=== PATIENT | female | born 1955 | race Caucasian/White ===

== ENCOUNTER → 2017-05-02 | Outpatient (CLI) | payer OTHER ==
[~2017-05-02] MED LIST: ALBUTEROL NEB; ASCO10003 PO; BUPR-83 PO; CHOL2000 PO; CYAN500T PO; DAILY FIBER PO; GLC/500 PO; LOSA25TA18 PO; MAGN400T6 PO; METH-589 PO; METH10TA6 PO; MOME200A INH; MULT-1016 PO; PARO1TAB29 PO; POTASSIUM PO; PRLSR20 PO; PROB1TAB19 PO; PRT/20 PO; RIBO50TA5 PO; TRAZ100T29 PO; VNTHFA/IN INH; ZNTT/150 PO
[2017-05-02 16:42] LABS: BASO % 0.3 %; BASO ABS # 0.02 K/uL (0-0.2); COMPLETE YES; HEMATOCRIT 38.1 % (37-47); IG% 0.2 %; LYMPH % 26.4 %; MEAN CELL VOLUME 93.2 fL (80-100); MEAN CORPUSCULAR HEMOGLOBIN 28.9 pg (25-34); MEAN PLATELET VOLUME 9.9 fL (7.4-10.4); MONO % 6.6 %; NEUT % 63.5 %; PLATELET COUNT 232 K/uL (130-400); RED BLOOD COUNT 4.09 M/uL (4.2-5.4); WHITE BLOOD COUNT 6.07 K/uL (4.8-10.8)
[2017-05-02 16:55] LABS: AMYLASE 41 U/L (25-115); BLOOD UREA NITROGEN 16 mg/dl (7-18); BUN/CREATININE RATIO 19.8 (10-20); CARBON DIOXIDE 30 mmol/L (21-32); CHLORIDE 107 mmol/L (98-107); CHOLESTEROL 167 mg/dl (0-200); GLUCOSE 89 mg/dl (70-99); POTASSIUM 4.7 mmol/L (3.5-5.1); SODIUM 142 mmol/L (136-145); TRIGLYCERIDES 60 mg/dl (0-150); VERY LOW DENSITY LIPOPROT CALC 12 mg/dl
[2017-05-02 17:08] LABS: ALB/GLOB RATIO 1.1 (0.9-2); ALKALINE PHOSPHATASE 132 U/L (45-117); ALT/SGPT 44 U/L (12-78); AST/SGOT 30 U/L (15-37); CHOLESTEROL/HDL RATIO 2.1; HDL CHOLESTEROL 80 mg/dl; LDL CHOLESTEROL CALCULATED 75 mg/dl
[2017-05-02 17:23] LABS: RATIO 5.3 mcg/mg (0-30.0)
[2017-05-02 18:06] LABS: CALCIUM 8.7 mg/dl (8.5-10.1)
[2017-05-03 06:30] LABS: ESTIMATED AVERAGE GLUCOSE 123 mg/dl; HA1C FLAG Normal (Normal)
== END | disposition home or self-care (01) ==
LOC: C.LABPBG 11:28 → EDBD 11:30 → C.LABPBG 11:30 → EDSTATUS 11:47 → C.LABPBG 11:48 → EDSTATUS 12:44
PROVIDERS: ATTEND Physician Assistant
DX: E50.9 Vitamin A deficiency, unspecified (principal); E51.8 Other manifestations of thiamine deficiency; E11.9 Type 2 diabetes mellitus without complications; R11.2 Nausea with vomiting, unspecified; Z00.00 Encounter for general adult medical examination without abnormal findings

== ENCOUNTER → 2017-06-06 | Outpatient (CLI) | payer OTHER ==
[~2017-06-06] MED LIST changes: -ALBUTEROL NEB; -PRT/20 PO; -TRAZ100T29 PO
--- NOTE | 2017-06-06 13:33 | DIAGNOSTIC IMAGING REPORT ---
ABDOMEN LIMITED (US) HISTORY: 62 years-old Female acute right upper quadrant abdominal pain COMPARISON: Chest radiograph 11/12/2016 TECHNIQUE: Multiple real-time cinematic images of the abdominal right upper quadrant were obtained assessing grayscale appearance FINDINGS: Exam is limited secondary to patient body habitus. The imaged portions of the pancreas appear normal with the distal body and tail not well seen. Liver measures up to 17.3 cm and appears diffusely echogenic suggesting fatty infiltration. No focal hepatic mass lesions. The gallbladder appears normal without gallbladder wall thickening, pericholecystic fluid collections or shadowing cholelithiasis. Common bile duct appears normal, 0.5 cm. Right kidney is within normal limits without hydronephrosis. IMPRESSION: 1. Unremarkable sonographic appearance of the gallbladder without cholelithiasis or sonographic evidence of acute cholecystitis. 2. No biliary ductal dilatation. 3. Fatty infiltration of the liver. The above report was generated using voice recognition software. It may contain grammatical, syntax or spelling errors. Electronically signed by: Sav Hoskins M.D. 06/06/2017 1:31 PM Dictated Date/Time: 06/06/2017 1:29 PM
== END | disposition home or self-care (01) ==
LOC: C.ULTR 09:48
PROVIDERS: ATTEND Physician Assistant
DX: R10.11 Right upper quadrant pain (principal)

== ENCOUNTER → 2017-08-13 | Outpatient (CLI) | payer OTHER ==
[2017-08-13 13:51] LABS: MAGNESIUM 1.8 mg/dl (1.8-2.4); THYROID STIMULATING HORMONE 0.226 uIu/ml (0.300-4.500)
[2017-08-18 13:31] LABS: TSI 563 % baseline (<140)
== END | disposition home or self-care (01) ==
LOC: C.LABPBG 10:36
PROVIDERS: ATTEND Physician Assistant
DX: E05.90 Thyrotoxicosis, unspecified without thyrotoxic crisis or storm (principal); Z13.21 Encounter for screening for nutritional disorder; R42 Dizziness and giddiness; R53.83 Other fatigue; E11.9 Type 2 diabetes mellitus without complications

== ENCOUNTER → 2017-08-25 | Outpatient (CLI) | payer OTHER | END | disposition home or self-care (01) | LOC: C.LABPBG 10:56 | PROVIDERS: ATTEND Physician Assistant | DX: Z13.21 Encounter for screening for nutritional disorder (principal) ==

== ENCOUNTER → 2017-08-29 | Outpatient (CLI) | payer OTHER ==
--- NOTE | 2017-08-29 11:43 | DIAGNOSTIC IMAGING REPORT ---
CT NECK WITHOUT INTRAVENOUS CONTRAST HISTORY: E05.90 [id number] Nontoxic multinodular [id number] TECHNIQUE: Multiaxial CT images of the neck were performed without the use of intravenous contrast. COMPARISON STUDY: None. FINDINGS: The right thyroid lobe measures 8.6 x 3.3 x 2.2 cm. The left thyroid lobe measures 4.6 x 2.8 x 1.6 cm. The isthmus measures 7 mm in thickness. Evaluation for a thyroid nodule is suboptimal due to the lack of intravenous contrast. There are 2 coarse calcifications within the right thyroid lobe with the largest measuring 9 mm. No cervical lymphadenopathy. Mild calcified plaque within the bilateral carotid bulbs. The parotid and submandibular glands are symmetric. Minimal left deviation of the larynx due to the enlarged right thyroid lobe. The lung apices are clear. The visualized brain parenchyma and orbits are unremarkable. Small retention cyst within the right maxillary sinus. IMPRESSION: 1. Asymmetrically enlarged right thyroid lobe as described above. This contains 2 coarse calcifications suggestive of a multinodular gland. However, evaluation for nodules is difficult due to the lack of intravenous contrast. Follow-up thyroid ultrasound would be helpful for further evaluation. 2. No cervical lymphadenopathy. Electronically signed by: Sean Mitchell M.D. 08/29/2017 11:41 AM Dictated Date/Time: 08/29/2017 11:29 AM
== END | disposition home or self-care (01) ==
LOC: C.CTS 10:55
PROVIDERS: ATTEND Internal Medicine Endocrinology, Diabetes & Metabolism
DX: E05.90 Thyrotoxicosis, unspecified without thyrotoxic crisis or storm (principal); E04.2 Nontoxic multinodular goiter

== ENCOUNTER → 2017-09-01 | Outpatient (CLI) | payer OTHER ==
[2017-09-01 15:20] LABS: THYROID STIMULATING HORMONE 0.06 uIu/ml (0.300-4.500)
== END | disposition home or self-care (01) ==
LOC: C.LABPBG 08:12
PROVIDERS: ATTEND Internal Medicine Endocrinology, Diabetes & Metabolism
DX: E66.01 Morbid (severe) obesity due to excess calories (principal); E05.90 Thyrotoxicosis, unspecified without thyrotoxic crisis or storm

== ENCOUNTER 2017-10-01 08:03 | Inpatient (IN) | payer OTHER ==
[2017-09-22 10:21] VITALS: BMI 49.0
[2017-09-22 10:31] LABS: BUN/CREATININE RATIO 14.4 (10-20); CALCIUM 9.4 mg/dl (8.5-10.1); CREATININE 0.76 mg/dl (0.60-1.20); POTASSIUM 4.8 mmol/L (3.5-5.1)
[2017-09-22 10:41] LABS: THYROID STIMULATING HORMONE 0.225 uIu/ml (0.300-4.500)
--- NOTE | 2017-09-22 10:51 | PAT Medication Instructions ---
Service Date Sep 22, 2017. Current Home Medication List Albuterol Hfa (Ventolin Hfa), Unknown Dose INH PRN Ascorbic Acid (Vitamin C), 1 TAB PO BID Bupropion (Wellbutrin), 200 MG PO BID Cholecalciferol (Vitamin D3), 1 CAP PO QAM Losartan Potassium (Cozaar), 25 MG PO QAM Magnesium Oxide (Mag-Ox), 400 MG PO QAM Metformin Hcl (Glucophage), 500 MG PO BID Methimazole (Methimazole), 2 TAB PO BID Mometasone Furoate-Formoterol (Dulera 200/5 Mcg), 2 PUFFS INH BID Multiple Vitamins W/ Minerals (Multivitamin Women 50+), 1 TAB PO QAM Pantoprazole (Protonix), Unknown Dose PO BID Paroxetine (Paxil), 40 MG PO QAM Trazodone Hcl (Trazodone), 100 MG PO HS [Albuterol Neb ], Unknown Dose for ASTHMA Medication Instructions For Your Scheduled Surgery - Hold the following medications 48 hours prior to surgery: Metformin Hcl (Glucophage), 500 MG PO BID - Hold the following medications the morning of surgery: Ascorbic Acid (Vitamin C), 1 TAB PO BID Cholecalciferol (Vitamin D3), 1 CAP PO QAM Losartan Potassium (Cozaar), 25 MG PO QAM Magnesium Oxide (Mag-Ox), 400 MG PO QAM Multiple Vitamins W/ Minerals (Multivitamin Women 50+), 1 TAB PO QAM - Take the following medications the morning of surgery with a sip of water OTHERWISE NOTHING TO EAT OR DRINK AFTER MIDNIGHT: Paroxetine (Paxil), 40 MG PO QAM [Albuterol Neb ], Unknown Dose for ASTHMA Albuterol Hfa (Ventolin Hfa), Unknown Dose INH PRN (use if needed; BRING TO HOSPITAL) Bupropion (Wellbutrin), 200 MG PO BID Pantoprazole (Protonix), Unknown Dose PO BID Methimazole (Methimazole), 2 TAB PO BID Mometasone Furoate-Formoterol (Dulera 200/5 Mcg), 2 PUFFS INH BID - Take the following medications as scheduled the night before surgery: [Albuterol Neb ], Unknown Dose for ASTHMA Albuterol Hfa (Ventolin Hfa), Unknown Dose INH PRN Ascorbic Acid (Vitamin C), 1 TAB PO BID Bupropion (Wellbutrin), 200 MG PO BID Trazodone Hcl (Trazodone), 100 MG PO HS Pantoprazole (Protonix), Unknown Dose PO BID Methimazole (Methimazole), 2 TAB PO BID Mometasone Furoate-Formoterol (Dulera 200/5 Mcg), 2 PUFFS INH BID If you have any questions please call us at [phone] or [phone] or [phone]
[2017-10-01] VITALS (7 sets, daily range): BP systolic 132–174; BP diastolic 66–83; PULSE 76–91; TEMP 36.6–36.9; O2SAT 92–97; Ht 162.6 cm; Wt 129.1 kg
[~2017-10-01] VITALS: Ht 162.6 cm; Wt 129.1 kg
[~2017-10-01 08:03] MED LIST changes: +ALBUTEROL NEB; +CLINDAMYCIN IV 900 MG in DEXTROSE 5% 50ML IV SCH; -CYAN500T PO; -DAILY FIBER PO; +FENTANYL CITRATE INJ 50 MCG/1 ML 2 ML VIAL ONE; +LACTATED RINGER'S 1000ML 1,000 ML IV SCH; +LIDOCAINE HCL 2% 2 ML VIAL (20MG/ML) ONE; -METH-589 PO; +MIDAZOLAM HCL 1 MG/ML 2ML VIAL ONE; -POTASSIUM PO; -PRLSR20 PO; -PROB1TAB19 PO; +PROPOFOL IV EMULSION 10 MG/ML 20 ML VIAL IV ONE; +PRT/20 PO; -RIBO50TA5 PO; +TRAZ100T29 PO; -ZNTT/150 PO
--- NOTE | 2017-10-01 08:31 | History & Physical Bridge Note ---
H&P Re-Evaluation Bridge Note: I have examined the patient, reviewed the History & Physical and in the interval since the performance of the History & Physical I have noted the following changes of clinical significance: No changes noted
[2017-10-01] MEDS ORDERED: DiphenhydrAMINE HCL 50 MG/ML VIAL ONE (08:44)
[2017-10-01] MEDS ORDERED: NURSING VERBAL MED ORDER ONE ×3 (08:45→23:15)
[2017-10-01] MEDS ORDERED: THROMBIN 5000 UNITS KIT ONE (08:54)
[2017-10-01] MEDS ORDERED: BACITRACIN OINT 15 GM TUBE ONE (08:54)
[2017-10-01] MEDS ORDERED: LIDOCAINE/EPINEPHRINE 1% 20 ML VIAL ONE (08:54)
[2017-10-01] MEDS ORDERED: FENTANYL CITRATE INJ 50 MCG/1 ML 2 ML VIAL ONE ×3 (09:29→11:49)
[2017-10-01] MEDS ORDERED: HYDROmorphone INJ 1 MG/ML SYR IV PRN (09:45)
[2017-10-01] MEDS ORDERED: ATROPINE SULFATE 0.1 MG/ML 5ML SYR IV PRN (09:45)
[2017-10-01] MEDS ORDERED: LABETALOL HCL IV 5 MG/ML 20ML IV PRN (09:45)
[2017-10-01] MEDS ORDERED: MEPERIDINE HCL 25 MG/ML CARP IV PRN (09:45)
[2017-10-01] MEDS ORDERED: ONDANSETRON INJ 2 MG/ML 2 ML VIAL IV PRN ×2 (09:45→12:45)
[2017-10-01] MEDS ORDERED: EpHEDrine SULFATE INJ 50 MG/ML AMP IV PRN (09:45)
[2017-10-01] MEDS ORDERED: ONDANSETRON INJ 2 MG/ML 2 ML VIAL ONE (10:24)
[2017-10-01] MEDS ORDERED: DEXAMETHASONE SOD INJ 4 MG/ML VIAL ONE (10:24)
[2017-10-01] MEDS ORDERED: PROPOFOL IV EMULSION 10 MG/ML 20 ML VIAL IV ONE ×2 (11:51)
--- NOTE | 2017-10-01 12:37 | [facility] Operative Report ---
Operative Report Operative Date Oct 01, 2017. Pre-Operative Diagnosis Graves disease. Post-Operative Diagnosis Same as preop. Procedure(s) Performed Total thyroidectomy with removal of right-sided substernal extension Surgeon Dr. Morales Marbleizing Machine Tender Surgeon(s) MARIAH Salamanca Estimated Blood Loss 150 ml Findings R>L MULTINODULAR GOITER WITH HYPERVASCULARITY AND RIGHT SUBSTERNAL EXTENSION Specimens A: Left thyroid lobe (double stitch superior pole, single stitch isthmus) B: Right thyroid lobe (double stitch superior pole, single stitch isthmus) I attest to the content of the Intraoperative Record and any orders documented therein. Any exceptions are noted below.
[2017-10-01] MEDS ORDERED: HYDROCODONE/ACETAMOPHEN 5/325MG TAB PO PRN (12:45)
[2017-10-01] MEDS ORDERED: ALBUTEROL HFA 8 GM INHALER INH PRN (12:45)
--- NOTE | 2017-10-01 12:45 | Discharge Instructions ---
Discharge Instructions Date of Service Oct 01, 2017. Admission Reason for Admission: Graves Disease Discharge Discharge Diagnosis / Problem: SAME Discharge Goals Goal(s): Therapeutic intervention Activity Recommendations Activity Limitations: as noted below 1. LIGHT ACTIVITY FOR 2 WEEKS 2. NO DRIVING WHILE ON [place] . Current Hospital Diet Patient's current hospital diet: Discharge Diet Recommended Diet: Regular Diet Procedures Procedures Performed: Total thyroidectomy with removal of right-sided substernal extension Pending Studies Studies pending at discharge: no Medical Emergencies . Who to Call and When: Medical Emergencies: If at any time you feel your situation is an emergency, please call 911 immediately. . Non-Emergent Contact Non-Emergency issues call your: Surgeon . . "Provider Documentation" section prepared by Sulaiman Morales. . VTE Core Measure Inpt VTE Proph given/why not?: SCD's
[2017-10-01] MEDS ORDERED: SUCCINYLCHOLINE 100MG/5ML SYR IV ONE (13:12)
[2017-10-01] MEDS: FENTANYL CITRATE INJ 50 MCG/1 ML 2 ML VIAL IV PRN ×3 (13:18→14:45)
--- NOTE | 2017-10-01 14:09 | OPERATIVE REPORT ---
DATE OF OPERATION: 10/01/2017 PREOPERATIVE DIAGNOSES: 1. Graves' disease. 2. Right greater than left multinodular goiter. POSTOPERATIVE DIAGNOSES: Same with the addition of a substernal extension of the right thyroid lobe. PROCEDURE: Total thyroidectomy including substernal extension on the right side. SURGEON: Sulaiman Morales MD [employer] CONSULTANT: Lor Self PA-C ESTIMATED BLOOD LOSS: 150 mL. FINDINGS: Very large right greater than left, multinodular goiter with right-sided substernal extension as well as extension down to the level of the cervical spine with significant hypervascularity. SPECIMENS: Left and right thyroid lobe sent separately for permanent pathological assessment. DRAINS: None. COMPLICATIONS: None. INDICATIONS FOR THE PROCEDURE: The patient is a 62-year-old female referred by Dr. Eduarda Louise in endocrinology for surgical treatment of Graves' disease. The patient has had Graves' disease for 10 years for which she has been on methimazole, but continues to have problems with management of her Graves' disease as well as significant compressive symptomatology due to her right greater than left multinodular goiter. A CT scan of the neck showed right greater than left thyroid enlargement with extension to the cervical spine as well as perhaps a mild substernal extension. The trachea was relatively midline. The patient has morbid obesity with a BMI of approximately 50. She knew she has quite high risk surgery. Options including radioactive iodine versus continued antithyroid medication versus total thyroidectomy were discussed with the patient and she wishes to proceed with surgical treatment. She presents for the above-mentioned procedure on an inpatient elective basis. DESCRIPTION OF PROCEDURE: After informed consent had been obtained from the patient, the patient was wheeled to the operating room and placed on the operating table in supine position. Monitors were placed. After induction of general endotracheal anesthesia, the patient's head and neck were gently extended. Due to the patient's morbid obesity, her breasts needed to be taped down with 3 inch strong tape and her neck tissues had to be taped superiorly near her chin for exposure as well with 3-0 strong tape. Marking pen was used to outline the planned 8 cm incision in a natural skin crease 2 fingerbreadths above the level of the clavicles. A 3 mL of 1% lidocaine with 1:100,000 epinephrine was used to inject the skin and subcutaneous tissues overlying the planned incision site. The skin in the neck and chest were then prepped and draped in the usual sterile fashion using Betadine as she developed a chlorhexidine allergy with her preoperative skin prep. Of note, she had 50 mg of Benadryl IV given due to the chlorhexidine allergy in preoperative holding area. A #15 scalpel was then used to make an incision through the skin, subcutaneous tissue, and platysma. Subplatysmal flaps were raised superiorly to the level of thyroid notch and inferiorly to the level of clavicles. The median raphe of the strap muscles divided using Bovie electrocautery. Of note, there was a large amount of adipose tissue between the skin and the strap muscle musculature. The strap muscles were retracted laterally. The right thyroid lobe was found to be quite large and the decision was made to divide the strap muscles transversely using a Harmonic scalpel. This was also done on the left hand side for symmetry. The left thyroid lobe was first addressed since this was smaller. The middle thyroid vein as well as superior and inferior thyroid vascular pedicles were divided adjacent to the thyroid capsule using Harmonic scalpel. Dissection was carried lateral to medial with care to identify and preserve the left recurrent laryngeal nerve. It was quite difficult to identify superior and inferior parathyroid candidates where I am fairly confident that I found an inferior parathyroid gland which appeared healthy during the dissection. The right superior thyroid gland was possibly within a fat pad located superolateral to the left thyroid lobe. The decision was made to divide the thyroid gland at the isthmus due to the enormity of the gland on the right hand side. This was achieved using a Harmonic scalpel. Orienting sutures were placed on to the left thyroid lobectomy specimen, which was sent off for permanent pathological assessment. The right side was addressed in a similar fashion. On this side, the gland was at least 2-3 times as larger as the left hand side and had substernal extension as well as extension down to the level of the cervical spine. This side of the gland was also more hypervascular than the left. It was also difficult to begun. The right recurrent laryngeal nerve was identified and preserved. Superior and inferior parathyroid candidates were also identified and preserved. Once again, this was quite difficult due to the patient's morbid obesity and surrounding adipose tissue. Dissection was carried lateral to medial and again the thyroid gland was from the trachea at Briceño's ligament using Harmonic scalpel. Orienting sutures were placed on the right thyroid lobectomy specimen, which was sent off for permanent pathological assessment. The wound was then copiously irrigated and suctioned. Bipolar electrocautery was used to achieve adequate hemostasis. Hemostasis was confirmed with a Valsalva maneuver. Small pieces of Surgicel followed by topical spray thrombin were then placed in the bilateral tracheoesophageal grooves for added hemostatic effect. The transversely divided strap muscles were then reapproximated using several simple up 3-0 Vicryl sutures. The strap muscles were then reapproximated in midline using a simple running interlocked 3-0 Vicryl suture. The large amount of adipose tissue was reapproximated using several deep 3-0 Vicryl sutures. The platysma was then closed with several deep 4-0 Monocryl sutures. The skin was then closed with a simple running subcuticular 5-0 Monocryl suture. Incision was cleansed and dried. Dermabond was applied to the incision. This marked the end of the case. The patient tolerated the procedure well and there were no apparent complications. The patient was extubated and transferred to recovery room in stable condition. I attest to the content of the Intraoperative Record and any orders documented therein. Any exception s are noted below.
--- NOTE | 2017-10-01 14:09 | OPERATIVE REPORT ---
DATE OF OPERATION: 10/01/2017 ADDENDUM: Of note, Lor Self, physician hair or beauty salon assistant, assisted with the entire case and also performed the multilayer closure of the operative incision including adipose closure, platysmal closure, and subcuticular skin closure. I attest to the content of the Intraoperative Record and any orders documented therein. Any exception s are noted below.
--- NOTE | 2017-10-01 14:13 | Anesthesiology Progress Note ---
Anesthesia Post Op Note Date & Time Oct 01, 2017 at 14:13 Vital Signs Pain Intensity: 0 Vital Signs Past 12 Hours Date Time Temp Pulse Resp B/P (MAP) Pulse Ox O2 Delivery O2 Flow Rate FiO2 10/01/17 13:50 72 18 147/72 94 Nasal Cannula 4 10/01/17 13:40 72 18 165/88 96 Nasal Cannula 4 10/01/17 13:32 171/91 10/01/17 13:30 97 14 163/119 97 Oxymask 10 10/01/17 13:20 91 19 168/93 96 Oxymask 10 10/01/17 13:10 85 14 176/85 95 Oxymask 10 10/01/17 13:06 36.5 86 17 179/93 90 Oxymask 10 10/01/17 08:24 36.7 79 20 160/66 (97) 97 Room Air Notes Mental Status: alert / awake / arousable, participated in evaluation Pt Amnestic to Procedure: Yes Nausea / Vomiting: adequately controlled Pain: adequately controlled Airway Patency, RR, SpO2: stable & adequate BP & HR: stable & adequate Hydration State: stable & adequate Anesthetic Complications: no major complications apparent
[2017-10-01] MEDS: LACTATED RINGER'S 1000ML 1,000 ML IV SCH ×2 (15:00→21:53)
[2017-10-01] MEDS: DULERA: ORDER AWAITING ACTION SCH ×2 (18:22→21:53)
[2017-10-01] MEDS: METFORMIN HCL 500 MG TAB PO SCH (18:23)
[2017-10-01 18:40] LABS: CALCIUM 8.6 mg/dl (8.5-10.1); MAGNESIUM 1.8 mg/dl (1.8-2.4); PHOSPHORUS 4.3 mg/dl (2.5-4.9)
[2017-10-01] MEDS ORDERED: TRAZODONE HCL 100 MG TAB PO SCH (21:00)
[2017-10-01] MEDS: ASCORBIC ACID 500 MG TAB PO SCH (21:20)
[2017-10-01] MEDS ORDERED: PAROXETINE 20 MG TAB PO SCH (22:00)
[2017-10-02 00:43] LABS: CALCIUM 8.6 mg/dl (8.5-10.1)
[2017-10-02 00:48] LABS: MAGNESIUM 1.7 mg/dl (1.8-2.4); PHOSPHORUS 3.3 mg/dl (2.5-4.9)
[2017-10-02 03:06] VITALS: BP 113/69; PULSE 83; TEMP 36.8; O2SAT 91
--- NOTE | 2017-10-02 05:49 | ENT PROGRESS NOTE ---
DATE: 10/02/2017 SUBJECTIVE: The patient is postoperative day #1 status post total thyroidectomy for Graves' disease and right greater than left, multinodular goiter with intraoperative findings of a very large right greater than left multinodular goiter with right-sided substernal extension. She has no complaints this morning. She denies any perioral or digital numbness or paresthesias. She denies any involuntary muscle spasms or cramps. OBJECTIVE: The patient is afebrile and her vital signs are stable. Her voice is normal. Her neck incision is clean, dry and intact with perhaps mild fluid collection noted but no expanding hematoma. LABORATORY EXAMINATION: Shows calcium of 8.6, both at 6:00 p.m. and 12:00 a.m. She has 6 a.m. labs pending this morning. ASSESSMENT AND PLAN: Postoperative day #1 status post total thyroidectomy. So far there have been no complications. Her voice and swallowing are normal. Her calciums are normal. If her labs are normal at 6:00 a.m., I will discharge her home this morning.
[2017-10-02] MEDS ORDERED: LEVOTHYROXINE 200 MCG TAB PO SCH (06:00)
[2017-10-02 06:54] LABS: CALCIUM 8.5 mg/dl (8.5-10.1); MAGNESIUM 1.8 mg/dl (1.8-2.4); PHOSPHORUS 3.3 mg/dl (2.5-4.9)
[2017-10-02 07:02] VITALS: BP 114/66; PULSE 77; TEMP 36.7; O2SAT 98
--- NOTE | 2017-10-02 07:12 | DISCHARGE SUMMARY ---
HOSPITAL COURSE: The patient is a 62-year-old female with Graves' disease and right greater than left multinodular goiter with right-sided substernal extension who underwent total thyroidectomy on 10/01/2017 with intraoperative findings of a very large right greater than left multinodular goiter with substernal extension and hypervascularity to the gland. Postoperatively, the patient did very well. There were no complications. The patient's voice and swallowing are normal. Her calciums were also normal. She was discharged home on postoperative day #1 on the following medications: 1. Synthroid 200 mcg 1 pill every morning with 30 tablets given and 11 refills. 2. [place] 5/325 mg 1-2 tablets p.o. q. 4 p.r.n. with 40 tablets given. The patient is to keep ice on her incision as much as possible over the next week. She should keep her incision, dry for 1 week. She is to call my office if she develops any perioral or digital numbness or paresthesias and/or involuntary muscle spasms or cramps. She should not drive while she is on [place]. She has a followup appointment next Friday.
[2017-10-02 07:22] VITALS: O2SAT 98
[2017-10-02] MEDS ORDERED: NURSING VERBAL MED ORDER ONE (07:30)
[2017-10-02] MEDS: DULERA: ORDER AWAITING ACTION SCH (07:55)
[2017-10-02] MEDS: METFORMIN HCL 500 MG TAB PO SCH (07:56)
[2017-10-02] MEDS ORDERED: CALCIUM CARBONATE 500 MG CHEWABLE PO ONE (08:00)
[2017-10-02 08:24] VITALS: BP 114/66; PULSE 77; TEMP 36.7; O2SAT 98
[2017-10-02] MEDS ORDERED: PAROXETINE 20 MG TAB PO SCH (09:00)
[2017-10-02] MEDS ORDERED: MAGNESIUM OXIDE 400 MG TAB PO SCH (09:00)
[2017-10-02] MEDS ORDERED: CHOLECALCIFEROL 1000 INTER.UNIT TAB PO SCH (09:00)
[2017-10-02] MEDS ORDERED: CEROVITE ADV FORMULA TAB PO SCH (09:00)
[2017-10-02] MEDS ORDERED: LOSARTAN POTASSIUM 25 MG TAB PO SCH (09:00)
--- NOTE | 2017-10-02 09:07 | Anesthesiology Progress Note ---
Anesthesia Post Op Note Date & Time Oct 02, 2017 at 09:07 Vital Signs Pain Intensity: 0.0 Vital Signs Past 12 Hours Date Time Temp Pulse Resp B/P (MAP) Pulse Ox O2 Delivery O2 Flow Rate FiO2 10/02/17 08:24 36.7 77 18 98 Room Air 10/02/17 07:22 98 Room Air 10/02/17 07:02 36.7 77 18 114/66 (82) 98 Room Air 10/02/17 03:06 36.8 83 18 113/69 (84) 91 Room Air 10/01/17 23:26 36.8 91 18 132/72 (92) 92 Room Air 10/01/17 23:20 Room Air Notes Mental Status: alert / awake / arousable, participated in evaluation Pt Amnestic to Procedure: Yes Nausea / Vomiting: adequately controlled Pain: adequately controlled Airway Patency, RR, SpO2: stable & adequate BP & HR: stable & adequate Hydration State: stable & adequate Anesthetic Complications: no major complications apparent
[2017-10-02] MEDS: ASCORBIC ACID 500 MG TAB PO SCH (09:11)
== END 2017-10-02 10:29 | disposition home or self-care (01) | DRG 626 ==
LOC: C.ACU 08:03 → C.MSW 12:43 → ENRESERV 13:59
PROC: 0GTK0ZZ Resection of Thyroid Gland, Open Approach (ICD-10-PCS; principal; 2017-10-01 08:15)
DX: E05.20 Thyrotoxicosis with toxic multinodular goiter without thyrotoxic crisis or storm (principal); Z68.43 Body mass index [BMI] 50.0-59.9, adult; E66.01 Morbid (severe) obesity due to excess calories; E11.9 Type 2 diabetes mellitus without complications; I10 Essential (primary) hypertension; J45.909 Unspecified asthma, uncomplicated; K21.9 Gastro-esophageal reflux disease without esophagitis; E55.9 Vitamin D deficiency, unspecified; F32.9 Major depressive disorder, single episode, unspecified; Z79.84 Long term (current) use of oral hypoglycemic drugs; Z79.899 Other long term (current) drug therapy; Z91.040 Latex allergy status; Z88.3 Allergy status to other anti-infective agents; Z82.5 Family history of asthma and other chronic lower respiratory diseases; Z83.3 Family history of diabetes mellitus; Z82.49 Family history of ischemic heart disease and other diseases of the circulatory system; Z80.0 Family history of malignant neoplasm of digestive organs

== ENCOUNTER → 2017-11-03 | Outpatient (CLI) | payer OTHER ==
[~2017-11-03] MED LIST changes: -CLINDAMYCIN IV 900 MG in DEXTROSE 5% 50ML IV SCH; -FENTANYL CITRATE INJ 50 MCG/1 ML 2 ML VIAL ONE; -LACTATED RINGER'S 1000ML 1,000 ML IV SCH; -LIDOCAINE HCL 2% 2 ML VIAL (20MG/ML) ONE; -METH10TA6 PO; -MIDAZOLAM HCL 1 MG/ML 2ML VIAL ONE; -PROPOFOL IV EMULSION 10 MG/ML 20 ML VIAL IV ONE
[2017-11-03 13:56] LABS: THYROID STIMULATING HORMONE 0.025 uIu/ml (0.300-4.500)
== END | disposition home or self-care (01) ==
LOC: C.LAB1850 11:44
PROVIDERS: ATTEND Internal Medicine Endocrinology, Diabetes & Metabolism
DX: E05.00 Thyrotoxicosis with diffuse goiter without thyrotoxic crisis or storm (principal); E55.9 Vitamin D deficiency, unspecified

== ENCOUNTER → 2017-12-05 | Outpatient (CLI) | payer OTHER | END | disposition home or self-care (01) | LOC: C.LABPBG 09:27 | PROVIDERS: ATTEND Internal Medicine Endocrinology, Diabetes & Metabolism | DX: E05.90 Thyrotoxicosis, unspecified without thyrotoxic crisis or storm (principal) ==

== ENCOUNTER → 2018-02-18 | Outpatient (CLI) | payer OTHER ==
[2018-02-18 13:13] LABS: BASO % 0.4 %; BASO ABS # 0.02 K/uL (0-0.2); EOS % 2.7 %; EOS ABS # 0.15 K/uL (0-0.5); HEMATOCRIT 36.5 % (37-47); HEMOGLOBIN 11.6 g/dL (12.0-16.0); IG# 0.01 K/uL (0.00-0.02); LYMPH % 23.3 %; LYMPH ABS # 1.29 K/uL (1.2-3.4); MEAN CELL VOLUME 93.8 fL (80-100); MEAN CORPUSCULAR HEMOGLOBIN 29.8 pg (25-34); MEAN CORPUSCULAR HGB CONC 31.8 g/dl (32-36); MEAN PLATELET VOLUME 10.4 fL (7.4-10.4); NEUT % 64.4 %; NEUT ABS # 3.56 K/uL (1.4-6.5); PLATELET COUNT 219 K/uL (130-400); RED CELL DISTRIBUTION WIDTH CV 13.9 % (11.5-14.5); RED CELL DISTRIBUTION WIDTH SD 47.5 fL (36.4-46.3); WHITE BLOOD COUNT 5.53 K/uL (4.8-10.8)
[2018-02-18 13:38] LABS: ALBUMIN 3.3 gm/dl (3.4-5.0); ALT/SGPT 37 U/L (12-78); BLOOD UREA NITROGEN 9 mg/dl (7-18); CALCIUM 8.6 mg/dl (8.5-10.1); CARBON DIOXIDE 29 mmol/L (21-32); CHOLESTEROL 147 mg/dl (0-200); CREATININE 0.88 mg/dl (0.60-1.20); GLUCOSE 103 mg/dl (70-99); POTASSIUM 4.4 mmol/L (3.5-5.1); SODIUM 139 mmol/L (136-145)
[2018-02-18 13:40] LABS: FOLLICLE STIMULAT HORMONE 51.47 IU/L; LUTEINIZING HORMONE 27.06 IU/L
[2018-02-18 13:49] LABS: ALKALINE PHOSPHATASE 123 U/L (45-117); AST/SGOT 19 U/L (15-37); LDL CHOLESTEROL CALCULATED 67 mg/dl; TOTAL PROTEIN 6.3 gm/dl (6.4-8.2)
[2018-02-18 14:47] LABS: CREATININE RANDOM URINE 76.5 mg/dl
== END | disposition home or self-care (01) ==
LOC: C.LABPBG 07:32
PROVIDERS: ATTEND Family Medicine
DX: E11.9 Type 2 diabetes mellitus without complications (principal); I10 Essential (primary) hypertension; E89.0 Postprocedural hypothyroidism; R19.7 Diarrhea, unspecified; R23.2 Flushing

== ENCOUNTER → 2018-03-23 | Day surgery (SDC) | payer OTHER ==
[2018-03-20 08:28] VITALS: BMI 47.0
--- NOTE | 2018-03-20 12:34 | HISTORY & PHYSICAL EXAMINATION ---
DATE OF ADMISSION: 03/23/2018 CHIEF COMPLAINT: Right shoulder pain. HISTORY OF PRESENT ILLNESS: The patient is a 63-year-old female seen and evaluated in our office with right shoulder pain and disability. She had an MRI which shows a full thickness rotator cuff tear. She is now scheduled for right shoulder arthroscopy, subacromial decompression, and rotator cuff repair. PAST MEDICAL HISTORY: Hypertension, asthma, depression, type 2 diabetes, hypothyroidism, anemia, acid reflux, obesity. PAST SURGICAL HISTORY: Thyroidectomy, stomach stapling 30 years ago, hysterectomy. MEDICATIONS: Albuterol inhaler q. 4-6 hours p.r.n. shortness of breath, Breo Ellipta inhaler once daily, bupropion HCL 100 mg 2 tablets twice daily, calcium plus D 2 capsules daily, levothyroxine 150 mcg daily, losartan potassium 25 mg daily, magnesium 400 mg daily, metformin HCL 500 mg twice daily, multivitamin daily, pantoprazole 40 mg twice daily, paroxetine HCL 40 mg daily, Ventolin inhaler 2 puffs q. 4 hours p.r.n., vitamin C 1000 mg twice daily, vitamin D3 2000 units daily. ALLERGIES: KEFLEX, AUGMENTIN, SULFA, OXYCODONE. SOCIAL HISTORY AND REVIEW OF SYSTEMS: Noncontributory. PHYSICAL EXAMINATION: GENERAL: Well-nourished, well-developed elderly female. HEENT: Normocephalic, atraumatic, extraocular movements intact, oropharynx pink and moist. NECK: Supple without adenopathy. LUNGS: Clear to auscultation bilaterally. HEART: Regular rate and rhythm. ABDOMEN: Soft, nontender, nondistended, obese. EXTREMITIES: The right upper extremity demonstrates full painful range of motion. There is weakness in the rotator cuff with resistive testing. X-RAYS: Her x-rays and MRI are reviewed. The MRI shows a full thickness tear of the supraspinatus. ASSESSMENT: Right rotator cuff tear. PLAN: Risks versus benefits were discussed, consent was obtained. The patient's primary care physician is Dr. Anastasiya Parsons. Will proceed with right shoulder arthroscopy, subacromial decompression and rotator cuff repair as indicated.
[~2018-03-23] VITALS: Ht 163.8 cm; Wt 128.6 kg
[~2018-03-23] MED LIST changes: +ALBUT/IPRATROP 3MG/0.5MG NEB 3 ML VIAL INH ONE; -ALBUTEROL NEB; +ANCEF~ALLERGY NOTED TO ORDERED MEDICATION SCH; +ATROPINE SULFATE 0.1 MG/ML 5ML SYR IV PRN; +CEFAZOLIN 3000MG IV PUSH 22.5 ML IV SCH; +EpHEDrine SULFATE INJ 50 MG/ML AMP IV PRN; +EpHEDrine SULFATE INJ 50 MG/ML AMP ONE; +EpINEphrine HCL INJ 1 MG/ML 1ML SYRINGE ONE; +FENTANYL CITRATE INJ 50 MCG/1 ML 2 ML VIAL ONE; +FLUT1INH INH; -GLC/500 PO; +GLYCOPYRROLATE INJ 0.2 MG/ML VIAL ONE; +HYDR-5688 PO; +HYDROCODONE/ACETAMIN 5/325MG TAB PO PRN; +HYDROmorphone INJ 0.5 MG/0.5 ML SYR IV PRN; +HYDROmorphone INJ 0.5 MG/0.5 ML SYR ONE; +HYDROmorphone INJ 2 MG/ML SYR/VIAL IV PRN; +LACTATED RINGER'S 1000ML 1,000 ML IV SCH; +LEVO150T9 PO; +LIDOCAINE HCL 2% 2 ML VIAL (20MG/ML) ONE; +MIDAZOLAM HCL 1 MG/ML 2ML VIAL ONE; -MOME200A INH; +NEOSTIGMINE METHYLSULFATE 5 MG/5 ML SYR ONE; +NURSING VERBAL MED ORDER ONE; +NURSING VERBAL MED ORDER STA; +ONDANSETRON INJ 2 MG/ML 2 ML VIAL IV PRN; +ONDANSETRON INJ 2 MG/ML 2 ML VIAL ONE; +PANT40TA2 PO; +PHENYLEPHRINE 100MCG/ML 5ML SYR IV PRN; +PROPOFOL IV EMULSION 10 MG/ML 20 ML VIAL ONE; -PRT/20 PO; +ROCURONIUM BROMIDE 10 MG/ML 5 ML VIAL ONE; +ROPIVACAINE 0.5% 5 MG/ML 30 ML VIAL ONE; +SUCCINYLCHOLINE 100MG/5ML SYR IV ONE
[2018-03-23 06:22] VITALS: BP 177/76; PULSE 74; TEMP 36.9; O2SAT 94; Ht 163.8 cm; Wt 128.6 kg
--- NOTE | 2018-03-23 10:45 | [facility] Post Operative Brief Note ---
Immediate Operative Summary Operative Date March 23, 2018. Pre-Operative Diagnosis Right Shoulder Rotator Cuff Tear Post-Operative Diagnosis Right Shoulder Rotator Cuff Tear Procedure(s) Performed Right Shoulder: Arthroscopic Subacromial Decompression and Rotator Cuff Repair Surgeon Dr. Landis Roustabout Supervisor Surgeon(s) MARIAH Rendon Estimated Blood Loss 20 ml Findings Consistent with Post-Op Diagnosis Specimens none per surgeon Drains None Anesthesia Type MAC Spinal Regional Complication(s) none Disposition Accompanied Pt To Recover: no Disposition: Recovery Room / PACU
--- NOTE | 2018-03-23 11:13 | Discharge Instructions ---
Discharge Instructions Date of Service March 23, 2018. Visit Reason for Visit: Right Shoulder Impingement Syndrome, Rtc Tear Discharge Discharge Diagnosis / Problem: Rotator Cuff Tear Right Shoulder Discharge Goals Goal(s): Decrease discomfort, Improve function Activity Recommendations Activity Limitations: per Instructions/Follow-up section Anesthesia . Post Anesthesia Instructions: If you have had General Anesthesia or IV Sedation: * Do not drive today. * Resume driving when surgeon permits. * Do not make important decisions or sign legal documents today. * Call surgeon for: 1. Temperature elevations greater than 101 degrees F. 2. Uncontrollable pain. 3. Excessive bleeding. 4. Persistent nausea and vomiting. 5. Medication intolerance (nausea, vomiting or rash). * For nausea and vomiting use only clear liquids such as: tea, soda, bouillon until nausea subsides, then gradually increase diet as tolerated. * If you have any concerns or questions, call your surgeon's office. If physician is unavailable and it is an emergency, call 911 or go to the nearest emergency room. . Instructions / Follow-Up Instructions / Follow-Up U DISCHARGE INSTRUCTIONS: ROTATOR CUFF REPAIR SELF CARE INSTRUCTIONS A. You are permitted to loosen your sling/immobilizer to move your elbow, wrist , and hand to prevent stiffness. You should use your well arm (good arm) to assist the operated extremity when trying to raise the arm away from the body, hygiene purposes. Do NOT actively try to use/engage your shoulder muscles in operative arm at this time. You should NOT do overhead activity, lifting, or attempt to reach behind your back. B. You may start Physical Therapy upon discharge . You will be provided a prescription for therapy with specific restrictions, if needed, at time of discharge. C. At 48 hours post-operatively, you may change your dressing. (Leave white steri-strips intact if present). Use band-aids and change daily. You are allowed to shower at this time and get the incision area wet, but DO NOT soak or submerge incision area in water. (No baths, swimming pools, hot tubs) D. Do NOT apply soap or any ointment/lotions directly over incision. E. You may use ice as needed to operative shoulder SPECIAL CARE INSTRUCTIONS: VERY IMPORTANT TO READ AND REVIEW A. There are a few signs you need to watch for after you are home. Call [facility] at [phone] if you experience any of the following: a. Increased severe shoulder pain. Some pain is expected especially when you exercise b. Increased swelling in your shoulder or arm; pain or swelling in either upper extremity. (Note: swelling and stiffness is normal and expected for several weeks post op, depending on type of shoulder surgery you had). c. Any fluid or drainage from the incision; redness of the incision. d. Shortness of breath or chest pain. B. Please call [facility] at [phone] if you have any questions or concerns about your operation or recovery. C. Call your physician if: a. Temperature is greater than 101 degrees (F). b. Pain is not relieved by prescribed pain medications. c. Increase drainage or redness from incision. d. Unanswered questions or concerns. D. Pain Medication: a. You will be prescribed pain medication upon discharge that should last till your first post-operative appointment. b. If you experience nausea and/or skin rash, discontinue this medication and contact our office for an alternative medication. c. Caution- narcotic pain medication can cause constipation. FOLLOW UP VISIT: Please call [facility] at [phone] to schedule a follow up appointment 10-14 days from your surgery date. Diet Recommendations Recommended Home Diet: resume previous diet Procedures Procedures Performed: Right Shoulder: Arthroscopic Subacromial Decompression and Rotator Cuff Repair Pending Studies Studies pending at discharge: no Medical Emergencies . Who to Call and When: Medical Emergencies: If at any time you feel your situation is an emergency, please call 911 immediately. . Non-Emergent Contact Non-Emergency issues call your: Surgeon Call Non-Emergent contact if: temperature is above 101.5, your pain is not controlled, your pain is worsening, wound has increased drainage, wound has increased redness . . "Provider Documentation" section prepared by Damion Mckenna. . [place] Drug Monitoring Program Search Results: patient reviewed within database, no issues identified
[2018-03-23 11:18] VITALS: PULSE 82; O2SAT 95
[2018-03-23 11:48] VITALS: BP 138/57; PULSE 84; TEMP 36.7; O2SAT 94
[2018-03-23 12:18] VITALS: BP 142/60; PULSE 86; TEMP 36.9; O2SAT 93
[2018-03-23 12:48] VITALS: BP 139/65; PULSE 81; TEMP 36.6; O2SAT 94
--- NOTE | 2018-03-23 13:45 | OPERATIVE REPORT ---
DATE OF OPERATION: 03/23/2018 PREOPERATIVE DIAGNOSIS: Rotator cuff tear, right shoulder. POSTOPERATIVE DIAGNOSIS: Rotator cuff tear, right shoulder. PROCEDURE: Arthroscopic subacromial decompression, rotator cuff repair, right shoulder. SURGEON: Rogelio Landis MD STRATEGIC SOURCING CONSULTANT: MARIAH Rendon ANESTHESIA: General. COMPLICATIONS: None. Mr. Mckenna was essential through all portions of the case including positioning, prepping, draping, surgical services manager, wound closure, dressing, and sling application. DESCRIPTION OF PROCEDURE: The patient was placed in a beach chair position and right shoulder was prepped and draped in usual sterile manner. Posterior incision was used for insertion of the arthroscope. Intraarticular elements were identified and found to be a full thickness rotator cuff tear. Glenohumeral joint showed minor chondral change. The long head of biceps was intact. The arthroscope was then placed in the subacromial space where abundant bursitis was encountered. Bursectomy was carried out using a 90 degree ablator and then arthroscopic subacromial decompression, otherwise known as an acromioplasty was carried out using a 5.5 mm bur. Following this, a green cannula was placed laterally and the expresso was inserted and the rotator cuff was able to be reduced to its normal attached position. A moderate size tear was noted. An arthroscopic subacromial decompression having been done, the bur was then reinserted and the bur was used to expose subchondral bone at the area of the proposed attachment point for the rotator cuff. Using a single Healicoil anchor triply loaded, the rotator cuff was repaired. Four of the limbs of suture were retained and taken to a second footprint creating a double row repair. This stably repaired the rotator cuff. The arthroscope was withdrawn. The wounds were closed using 4-0 nylon simple sutures. Sterile dressing of Adaptic, 4 x 4's, ABDs, foam tape, and a [place] sling was applied. The patient tolerated the procedure well. I attest to the content of the Intraoperative Record and any orders documented therein. Any exception s are noted below.
--- NOTE | 2018-03-23 13:49 | Anesthesiology Progress Note ---
Anesthesia Post Op Note Date & Time March 23, 2018 at 13:49 Vital Signs Pain Intensity: 1 Vital Signs Past 12 Hours Date Time Temp Pulse Resp B/P (MAP) Pulse Ox O2 Delivery O2 Flow Rate FiO2 03/23/18 12:48 36.6 81 17 139/65 94 Room Air 03/23/18 12:18 36.9 86 20 142/60 93 Room Air 03/23/18 11:48 36.7 84 18 138/57 94 Room Air 03/23/18 11:40 36.7 78 20 124/64 96 Nasal Cannula 2 Oxymask 03/23/18 11:30 85 20 138/60 96 Nasal Cannula 2 Oxymask 03/23/18 11:20 83 20 129/69 95 Room Air Oxymask 03/23/18 11:18 82 18 95 Mask 15.0 03/23/18 11:10 87 20 137/76 96 Oxymask 8 03/23/18 11:01 36.4 90 20 147/77 96 Oxymask 8 03/23/18 06:22 36.9 74 20 177/76 (109) 94 Room Air Notes Mental Status: alert / awake / arousable, participated in evaluation Pt Amnestic to Procedure: Yes Nausea / Vomiting: adequately controlled Pain: adequately controlled Airway Patency, RR, SpO2: stable & adequate BP & HR: stable & adequate Hydration State: stable & adequate Anesthetic Complications: no major complications apparent
== END | disposition home or self-care (01) ==
LOC: C.ACU 05:49
DX: M75.101 Unspecified rotator cuff tear or rupture of right shoulder, not specified as traumatic (principal); I10 Essential (primary) hypertension; J45.909 Unspecified asthma, uncomplicated; F32.9 Major depressive disorder, single episode, unspecified; E11.9 Type 2 diabetes mellitus without complications; F41.9 Anxiety disorder, unspecified; D64.9 Anemia, unspecified; M19.90 Unspecified osteoarthritis, unspecified site; K21.9 Gastro-esophageal reflux disease without esophagitis; E66.01 Morbid (severe) obesity due to excess calories; E89.0 Postprocedural hypothyroidism; Z90.710 Acquired absence of both cervix and uterus; Z79.899 Other long term (current) drug therapy; Z88.1 Allergy status to other antibiotic agents; Z88.2 Allergy status to sulfonamides; Z88.5 Allergy status to narcotic agent; Z79.84 Long term (current) use of oral hypoglycemic drugs; Z91.040 Latex allergy status; Z98.84 Bariatric surgery status; Z96.653 Presence of artificial knee joint, bilateral; Z87.442 Personal history of urinary calculi; Z92.241 Personal history of systemic steroid therapy

== ENCOUNTER 2020-05-22 06:16 | Observation (INO) ==
[2020-05-22] MEDS ORDERED: SODIUM CHLORIDE 0.9% 1000ML 1,000 ML IV ONE (06:37)
[2020-05-22] MEDS ORDERED: CLINDAMYCIN 900 MG in DEXTROSE 5% 50 ML IV ONE (06:41)
--- NOTE | 2020-05-22 06:48 | Emergency Department Note ---
History of Present Illness General Chief complaint: Abdominal Pain Stated complaint: Abdominal Pain Time Seen by Provider: 05/22/20 06:31 Source: patient Limitations: no limitations History of Present Illness Provider complaint: Lower abdominal pain Maximum Pain Intensity: 10 This is a 65-year-old female who presents to the ED with a chief complaint of lower abdominal pain that started last night when she stood up getting out of bed. She felt a burning/tearing type sensation in the lower abdomen near the inferior portion of her recent ventral hernia repair that was repaired on May [address] Campa in [place]. The patient states that the pain radiated up towards her bilateral lower flanks. She also feels a sensation of a sunburn type of discomfort in the area. She denies any nausea or vomiting. No bowel movement since Friday but she is only been eating food. Denies any other symptoms. No fevers. No chest pains or shortness of breath or upper respiratory symptoms. Home Medications Home Medications Medication Instructions Recorded Confirmed Type blood glucose control, normal #1 ea 06/01/19 03/01/20 History blood sugar diagnostic #100 ea 06/01/19 03/01/20 Rx blood-glucose meter #1 ea 06/01/19 03/01/20 History calcium carbonate 600 mg (1,500 2 cap PO BID cap 06/01/19 05/22/20 History mg)-vitamin D3 500 unit capsule lancets #100 ea 06/01/19 03/01/20 Rx multivitamin 1 tab PO QAM 06/01/19 05/22/20 History nebulizer accessories #1 ea 09/03/19 03/01/20 Rx nebulizers #1 ea 09/06/19 03/01/20 Rx trazodone 150 mg tablet 150 mg PO HS #90 tab 10/13/19 05/22/20 Rx metformin 500 mg tablet 500 mg PO BID #180 tab 11/29/19 05/22/20 Rx omeprazole 20 mg capsule,delayed 20 mg PO BID #60 cap 12/20/19 05/22/20 Rx release trazodone 50 mg tablet 50 mg PO HS #90 tab 01/17/20 05/22/20 Rx albuterol sulfate 2.5 mg INH Q6H PRN #360 ml 01/27/20 05/22/20 Rx magnesium oxide 400 mg (241.3 mg 400 mg PO QAM #30 tab 04/01/20 07/06/20 Rx magnesium) tablet fluticasone furoate 200 1 puffs INHALATION QAM #60 ea 02/25/20 05/22/20 Rx mcg-vilanterol 25 mcg/dose inhalation powder levothyroxine 175 mcg tablet 175 mcg PO QAM #30 tab 02/25/20 05/22/20 Rx ascorbic acid (vitamin C) 1,000 mg 1 gm PO BID tab 03/01/20 05/22/20 History tablet albuterol sulfate 90 mcg/actuation 2 puffs INH Q4H PRN #18 gm 03/06/20 05/22/20 Rx aerosol inhaler gabapentin 300 mg capsule 300 mg PO TID #90 cap 03/13/20 05/22/20 Rx loratadine 10 mg tablet 10 mg PO DAILY #30 tab 03/31/20 05/22/20 Rx losartan 25 mg tablet 25 mg PO QAM #90 tab 04/24/20 05/22/20 Rx paroxetine HCl 40 mg tablet 40 mg PO DAILY #90 tab 04/24/20 05/22/20 Rx bupropion HCl 100 mg tablet See Rx Instructions PO BID #135 tab 05/19/20 05/22/20 Rx vitamin B complex 1 tab PO DAILY 05/22/20 05/22/20 History Allergies Allergy/AdvReac Type Severity Reaction Status Date / Time amoxicillin Allergy Intermediate HIVES Verified 05/22/20 06:37 cephalexin Allergy Intermediate HIVES Verified 05/22/20 06:37 chlorhexidine Allergy Intermediate RASH AND Verified 05/22/20 06:37 ITCHING clavulanic acid Allergy Intermediate HIVES Verified 05/22/20 06:37 latex Allergy Intermediate " WELT Verified 05/22/20 06:37 MARADIAGA" morphine Allergy Intermediate HEART Verified 05/22/20 06:37 RACING ? , PT NOT SURE EXACTLY oxycodone Allergy Intermediate HEART RACES Verified 05/22/20 06:37 Sulfa (Sulfonamide Allergy Unknown UNKOWN - Verified 05/22/20 06:37 Antibiotics) PT DOES NOT REMEMBER Past Med/Surg History Medical History Acid reflux disease Anemia Anxiety Arthritis Asthma inhaler daily/prn Bulimia Depression Diabetes mellitus with complication Diabetic neuropathy Graves disease Graves' ophthalmopathy History of varicose veins Hypertension Incarcerated incisional hernia Morbid obesity Nontoxic multinodular goiter (Resolved) Postoperative primary hypothyroidism Premature ventricular contractions Venous insufficiency Ventral hernia Vitamin D deficiency Surgical History History of section x2 History of esophagogastroduodenoscopy (EGD) History of hysterectomy History of repair of right rotator cuff (03/2018) History of tonsillectomy 1963 History of tooth extraction all teeth History of total left knee replacement (TKR) History of total right knee replacement (TKR) S/P gastroplasty (~1979) vertical banded gastroplasty S/P total thyroidectomy (09/2017) secondary to Graves Disease Family History Mother Diabetes Hypertension Asthma Sister Cardiac disorder Myocardial infarction Grandmother Stomach cancer Other No family history of adverse response to anesthesia Denies family history of Ovarian cancer Prostate cancer Breast cancer Lung cancer Colorectal cancer Social History Preferred Language: Hungarian Communication Ability: Effective Visual Impairment: No Limitations Hearing Ability: Normal Spotlight Operator Required: No Beliefs That Will Affect Care: None marital status: Current Living Situation: Spouse current occupational status: unemployed, retired and disabled Feels Safe at Home: Yes Smoking Status: Former smoker Cigarettes Per Day: 1 PP WEEK ; Number of Years Since Quit: 31 ; Second Hand Exposure: No ; Hx Alcohol Use: No Hx Substance Use: No Childhood Exposure to Second-Hand Smoke: Yes Diet Comment: regular caffeine: No Dental Care, Regularly: Yes Physical Activity Frequency: 1-2 Times per Week Seatbelt Use: always Sunscreen Use: No Review of Systems A total of 10 systems reviewed and were otherwise negative Physical Exam Vital Signs Vital Signs - 24 hr 05/22/20 06:18 05/22/20 06:51 05/22/20 08:01 Temperature 37.0 C Temperature Source Oral Pulse Rate 84 Pulse Rate [Apical] 68 Pulse Rhythm [Apical] Regular Respiratory Rate 20 20 Respiratory Effort / Characteristics Non-Labored Spontaneous Non-Labored Respiratory Depth Normal Normal Blood Pressure 124/56 L Blood Pressure [Right Arm] 121/58 L Blood Pressure Mean 78 Blood Pressure Mean [Right Arm] 79 Blood Pressure Position [Right Arm] Sitting Pulse Oximetry 96 96 98 Oxygen Delivery Method Room Air Room Air Room Air Sepsis Action Taken by Nursing No Action Required CONSTITUTIONAL/VITAL SIGNS: Reviewed / noted above. GENERAL: Non-toxic in appearance. INTEGUMENTARY: Warm, dry, and [place]. HEAD: Normocephalic. EYES: without scleral icterus or trauma. ENT/OROPHARYNX: clear and moist. LYMPHADENOPATHY/NECK: Is supple without lymphadenopathy or meningismus. RESPIRATORY: Lungs clear and equal. CARDIOVASCULAR: Regular rate and rhythm. GI/ABDOMEN: Soft and tender in the lower abdomen in the area of the vertical incision from ventral hernia repair. There is diffuse redness in the generalized region around the incision and into the bilateral lower quadrants. No obvious discharge from the wound. No organomegaly or pulsatile mass. No r ebound or guarding. Normal bowel sounds. EXTREMITIES: Warm and well perfused. BACK: No CVA tenderness. NEUROLOGICAL: Intact without focal deficits. PSYCHIATRIC: normal affect. MUSCULOSKELETAL: Normally developed with good muscle tone. TRIAGE NURSING DOCUMENTATION REVIEWED. Course Administered Medications Discontinued Medications Sodium Chloride (Nss 1000ml) 1,000 mls @ 999 mls/hr IV .Q1H1M ONE Stop: 05/22/20 07:37 Last Infusion: 05/22/20 07:57 Dose: 0 mls/hr Documented by: [id number] Admin: 05/22/20 06:52 Dose: 999 mls/hr Documented by: [id number] Clindamycin Phosphate 900 mg/ (Dextrose) 56 mls @ 112 mls/hr IV ONE ONE Stop: 05/22/20 07:10 Last Infusion: 05/22/20 08:08 Dose: 0 mls/hr Documented by: [id number] Admin: 05/22/20 07:35 Dose: 112 mls/hr Documented by: [id number] Medical Decision Making Differential Diagnosis Cellulitis, abscess, MRSA infection, DVT, necrotizing fasciitis, dermatitis, dr ug eruption, allergic reaction, as well as other pathologies. Medical Records Attestation: I reviewed the patient's medical records. Home Medications Current Medication List: was personally reviewed by me Laboratory Data Attestation: I reviewed the patient's lab results. Result diagrams: 05/22/20 05:45 05/22/20 05:45 Lab Results 05/22/20 05/22/20 05/22/20 Range/Units 05:45 05:45 07:25 WBC 5.80 (4.8-10.8) K/uL RBC 2.77 L (4.2-5.4) M/uL Hgb 7.9 L (12.0-16.0) g/dL Hct 24.8 L (37-47) % MCV 89.5 (80-100) fL MCH 28.5 (25-34) pg MCHC 31.9 L (32-36) g/dL RDW Std Deviation 45.4 (36.4-46.3) fL RDW Coeff of Lily 13.7 (11.5-14.5) % Plt Count 351 (130-400) K/uL MPV 9.4 (7.4-10.4) fL Immature Gran % (Auto) 0.2 % Neut % (Auto) 66.9 % Lymph % (Auto) 13.1 % [place] % (Auto) 15.7 % Eos % (Auto) 3.8 % Baso % (Auto) 0.3 % Neut # (Auto) 3.88 (1.4-6.5) K/uL Lymph # (Auto) 0.76 L (1.2-3.4) K/uL [place] # (Auto) 0.91 H (0.11-0.59) K/uL Eos # (Auto) 0.22 (0-0.5) K/uL Baso # (Auto) 0.02 (0-0.2) K/uL Immature Gran # (Auto) 0.01 (0.00-0.02) K/uL RBC Morphology Unremarkable Sodium 140 (136-145) mmol/L Potassium 4.5 (3.5-5.1) mmol/L Chloride 103 (98-107) mmol/L Carbon Dioxide 32 (21-32) mmol/L Anion Gap 5.0 (3-11) BUN 11 (7-18) mg/dl Creatinine 0.84 (0.6-1.2) mg/dl Est Cr Clr Drug Dosing 83.9 ml/min Est GFR ( Amer) 85.1 Est GFR (Non-Af Amer) 73.4 BUN/Creatinine Ratio 12.7 (10-20) Glucose 113 H (70-99) mg/dl Calcium 8.9 (8.5-10.1) mg/dl Total Bilirubin 0.3 (0.2-1) mg/dl AST 13 L (15-37) U/L ALT 20 (12-78) U/L Alkaline Phosphatase 104 (45-117) U/L Total Protein 6.0 L (6.4-8.2) gm/dl Albumin 2.3 L (3.4-5.0) gm/dl Globulin 3.7 (2.5-4.0) gm/dl Albumin/Globulin Ratio 0.6 L (0.9-2) Lipase 92 (73-393) U/L Urine Color Yellow Urine Appearance Clear (Clear) Urine pH 8.0 H (4.5-7.5) Ur Specific [place] 1.013 (1.000-1.030) Urine Protein Negative (Negative) Urine Glucose (UA) Negative (Negative) Urine Ketones Negative (Negative) Urine Blood Negative (Negative) Urine Nitrite Negative (Negative) Urine Bilirubin Negative (Negative) Urine Urobilinogen Negative (Negative) Ur Leukocyte Esterase Negative (Negative) Imaging Data Radiologist's Impression: [place], [place] [phone] CT Scan Report Patient: MERE DELAROSAdmit Date: 05/22/20 MR#: [id number]: [address] Acct ID:[id number]: Date: [address] [place] [address] Zip: [place] [address] Age: 65Location: ED Sex: F Room/Bed: Att Phy:Diagnosis: Abdominal Pain Vianey Phy: Anastasiya Ruiz, DOService Date: 05/22/20 Fam Phy:Interpreting Phy: Wai Ellis MD Admit Phy: Ordering Phy: Andrew Gilbert D.O. cc: ~ CT abd pelvis wo con CT DOSE: 1943.93 mGy.cm HISTORY: Pain. Postoperative nausea. abdominal redness s/p ventralhernia repair 05/10/20 do w/o TECHNIQUE: Multiaxial CT images of the abdomen and pelvis were performed without contrast. A dose lowering technique was utilized adhering to the principles of ALARA. COMPARISON STUDY: 02/26/2020 FINDINGS: Minimal basilar atelectasis. Prior gastric bypass procedure. Liver spleen and pancreas are unremarkable. Renal calcification within the left renal pelvis unchanged from the prior study. This measures 7 mm. Gallbladder is negative for distention. Kidneys again are negative for hydronephrosis. Evidence for interval hernia repair. Small gas pocket within the subcutaneous tissues at the operative site. This may simply be postoperative versus small a bscess measuring 4 x 2 cm Considerable infiltrative change of the anterior abdominal wall as well as flank cutaneous fat. This may indicate a component of body wall anasarca as well as postoperative change. Bladder is midline. No free fluid within the pelvic cul-de-sac. The bowel pattern overall is nonobstructive. Cm impossible to exclude. IMPRESSION: 1. Interval ventral hernia repair. 2. 4 x 2 cm gas and soft tissue collection within the subcutaneous tissues deep to the incisional site. 3. This potentially is simply postoperative, although this should be closely monitored to exclude a postprocedural abscess. 4. Mild body wall anasarca. 5. 7 mm calculus within the left renal pelvis unchanged MDM Narrative This is a 65-year-old female who presents to the ED with a chief complaint of lower abdominal pain that started last night when she stood up getting out of bed. She felt a burning/tearing type sensation in the lower abdomen near the inferior portion of her recent ventral hernia repair that was repaired on May [address] Campa in [place]. The patient states that the pain radiated up towards her bilateral lower flanks. She also feels a sensation of a sunburn type of discomfort in the area. She denies any nausea or vomiting. No bowel movement since Friday but she is only been eating food. Denies any other symptoms. No fevers. No chest pains or shortness of breath or upper respiratory symptoms. The patient's vital signs here are normal. Her physical exam as noted above. Basically she has erythema surrounding the vertical incision from her hernia repair in the lower abdomen with some tenderness on palpation. The erythema extends into the bilateral lower quadrants of the abdomen. A CT scan of the abdomen pelvis did not show a clear abscess or other acute intra-abdominal problems. CBC reveals a normal white blood cell count. Hemoglobin is 7.9. This is similar to her hemoglobin on discharge on 05/15 of 8.3. Urine did not show infection. The patient was told the results of the test. I spoke with the hospitalist, who will see the patient for further inpatient evaluation and care. I did speak with Dr. Campa, who recommends the patient can stay at [facility] for IV antibiotics for a day or 2 and then she will follow-up with the patient this as an outpatient. The patient already has a scheduled appointment for . Impression & Plan Abdominal wall cellulitis Discharge Plan Visit Data Chief Complaint: Abdominal Pain Stated Complaint: Abdominal Pain ED Provider: Andrew Gilbert Discharge Problem: Abdominal wall cellulitis Patient Disposition: Being Evaluated by Hospitalist Forms Stand Alone Forms: My [facility] Prescriptions Prescriptions: No Action (DME) nebulizer accessories kit See Dose Instructions .ROUTE .MEDSUPPLY Qty: 1 RF: 0 (DME) nebulizers misc See Dose Instructions .ROUTE .MEDSUPPLY Qty: 1 RF: 0 metformin 500 mg tablet 500 mg PO BID Qty: 180 RF: 2 omeprazole 20 mg capsule,delayed release(DR/EC) 20 mg PO BID Qty: 60 RF: 5 trazodone 50 mg tablet 50 mg PO HS Qty: 90 RF: 1 albuterol sulfate 2.5 mg /3 mL (0.083 %) solution for nebulization 2.5 mg INH Q6H PRN (Reason: shortness of breath or wheezing) Qty: 360 RF: 5 magnesium oxide 400 mg (241.3 mg magnesium) tablet 400 mg PO QAM Qty: 30 RF: 5 Breo Ellipta 200-25 mcg/dose blister with device 1 puffs inhalation QAM Qty: 60 RF: 5 levothyroxine 175 mcg tablet 175 mcg PO QAM Qty: 30 RF: 5 albuterol sulfate [Ventolin HFA] 90 mcg/actuation HFA aerosol inhaler 2 puffs INH Q4H PRN (Reason: shortness of breath or wheezing) Qty: 18 RF: 2 gabapentin 300 mg capsule 300 mg PO TID Qty: 90 RF: 5 loratadine [Claritin] 10 mg tablet 10 mg PO DAILY Qty: 30 RF: 5 losartan [Cozaar] 25 mg tablet 25 mg PO QAM Qty: 90 RF: 1 paroxetine HCl [Paxil] 40 mg tablet 40 mg PO DAILY Qty: 90 RF: 1 bupropion HCl 100 mg tablet See Rx Instructions PO BID Qty: 135 RF: 5 calcium carbonate-vitamin D3 600 mg(1,500mg) -500 unit capsule 2 cap PO BID RF: 0 multivitamin tablet 1 tab PO QAM RF: 0 (DME) blood glucose control, normal [OneTouch Ultra Control] solution See Dose Instructions .ROUTE .MEDSUPPLY Qty: 1 RF: 0 (DME) blood-glucose meter [OneTouch Ultra2 Meter] kit See Dose Instructions .ROUTE .MEDSUPPLY Qty: 1 RF: 0 (DME) lancets [OneTouch UltraSoft Lancets] misc See Dose Instructions .ROUTE .MEDSUPPLY Qty: 100 RF: 0 (DME) OneTouch Ultra Blue Test Strip strip See Dose Instructions .ROUTE .MEDSUPPLY Qty: 100 RF: 0 ascorbic acid (vitamin C) 1,000 mg tablet 1 gm PO BID RF: 0 trazodone 150 mg tablet 150 mg PO HS Qty: 90 RF: 1 vitamin B complex Tablet 1 tab PO DAILY RF: 0 Referrals Referrals: Anastasiya Ruiz DO [Primary Care Provider] -
[2020-05-22 06:55] LABS: Basophils # (auto) 0.02 K/uL (0-0.2); Basophils % (auto) 0.3 %; Eosinophils # (auto) 0.22 K/uL (0-0.5); Eosinophils % (auto) 3.8 %; Hematocrit (blood only) 24.8 % (37-47); Hemoglobin 7.9 g/dL (12.0-16.0); Immature Granulocytes # (auto) 0.01 K/uL (0.00-0.02); Immature Granulocytes % (auto) 0.2 %; Lymphocytes # (auto) 0.76 K/uL (1.2-3.4); Lymphocytes % (auto) 13.1 %; Mean Corpuscular Hemoglobin 28.5 pg (25-34); Mean Corpuscular Hgb Conc 31.9 g/dL (32-36); Mean Corpuscular Volume 89.5 fL (80-100); Mean Platelet Volume 9.4 fL (7.4-10.4); Monocytes # (auto) 0.91 K/uL (0.11-0.59); Monocytes % (auto) 15.7 %; Neutrophils # (auto) 3.88 K/uL (1.4-6.5); Neutrophils % (auto) 66.9 %; Platelet Count 351 K/uL (130-400); RDW Coefficient of Variation 13.7 % (11.5-14.5); RDW Standard Deviation 45.4 fL (36.4-46.3); Red Blood Count 2.77 M/uL (4.2-5.4)
[2020-05-22 07:12] LABS: Albumin Level 2.3 gm/dl (3.4-5.0); BUN Creatinine Ratio 12.7 (10-20); Calcium 8.9 mg/dl (8.5-10.1); Creatinine Clr Calc Pharmacy 83.9 ml/min; Est GFR (African American) 85.1; Est GFR (Non-African American) 73.4; Potassium 4.5 mmol/L (3.5-5.1)
[2020-05-22 07:15] LABS: Albumin Globulin Ratio 0.6 (0.9-2); Bilirubin,Total 0.3 mg/dl (0.2-1); Globulin 3.7 gm/dl (2.5-4.0)
[2020-05-22 07:34] LABS: RBC Morphology Unremarkable
[2020-05-22 07:38] LABS: Appearance Urine Clear (Clear); Bilirubin Urine Negative (Negative); Blood Urine Negative (Negative); Color Urine Yellow; Glucose Urine UA Negative (Negative); Ketones Urine Negative (Negative); Leukocyte Esterase Urine Negative (Negative); Nitrite Urine Negative (Negative); Protein Urine Negative (Negative); Specific Gravity Urine 1.013 (1.000-1.030); Urobilinogen Urine Negative (Negative)
--- NOTE | 2020-05-22 08:25 | CT Scan Report ---
CT abd pelvis wo con CT DOSE: 1943.93 mGy.cm HISTORY: Pain. Postoperative nausea. abdominal redness s/p ventralhernia repair 05/10/20 do w/o TECHNIQUE: Multiaxial CT images of the abdomen and pelvis were performed without contrast. A dose lo wering technique was utilized adhering to the principles of ALARA. COMPARISON STUDY: 02/26/2020 FINDINGS: Minimal basilar atelectasis. Prior gastric bypass procedure. Liver spleen and pancreas are unremarkable. Renal calcification within the left renal pelvis unchanged from the prior study. This measures 7 mm. Gallbladder is negative for distention. Kidneys again are negative for hydronephrosis. Evidence for interval hernia repair. Small gas pocket within the subcutaneous tissues at the operativ e site. This may simply be postoperative versus small abscess measuring 4 x 2 cm Considerable infiltrative change of the anterior abdominal wall as well as flank cutaneous fat. This may indicate a component of body wall anasarca as well as postoperative change. Bladder is midline. No free fluid within the pelvic cul-de-sac. The bowel pattern overall is nonobstructive. Cm impossible to exclude. IMPRESSION: 1. Interval ventral hernia repair. 2. 4 x 2 cm gas and soft tissue collection within the subcutaneous tissues deep to the incisional sit e. 3. This potentially is simply postoperative, although this should be closely monitored to exclude a p ostprocedural abscess. 4. Mild body wall anasarca. 5. 7 mm calculus within the left renal pelvis unchanged ACT 112: Negative or not required by law. The above report was generated using voice recognition software. It may contain grammatical, syntax or spelling errors. Electronically signed by: Wai Ellis M.D. 05/22/2020 8:23 AM
[2020-05-22] MEDS ORDERED: ALBUTEROL HFA 8 GM INHALER INH ONE (09:29)
--- NOTE | 2020-05-22 09:43 | History & Physical Report ---
Date of Service May 22, 2020 Assessment & Plan (1) Abdominal wall cellulitis: Post-operative abdominal wall cellulitis (ventral hernia repair 05/10 at ). Need to cover for MSSA, MRSA, and gram negatives as well. Multiple antibiotic allergies - will use ertapenem for gram negative coverage, and vancomycin for gram positive coverage. I have demarkated the superior border of the area of cellulitis. ED attending spoke directly with Dr Campa at [facility] - Dr Campa aware of her admission as well as the CT findings. Dr Campa was comfortable with patient being hospitalized at [facility] for this issue. If the cellulitis was to worsen, or if the fluid collection was thought to be infected, would seek transfer of patient to [facility]. (2) S/P repair of ventral hernia: 05/10/2020 at . Surgeon - Dr Angelita Campa. 5-day stay. Uncomplicated by report. (3) Anemia: Hb in February was 13. Now 7.9. Suspect she had acute blood loss anemia at [facility] from surgery, blood draws, etc. Will start ferrous sulfate 325mg BID. Recheck CBC in am for stability. No BRBPR or melena by report. (4) Postoperative primary hypothyroidism: TSH 02/2020 wnl. Cont synthroid. (5) Hypertension: Hold losartan. BP low-normal at time of presentation today. (6) Asthma: No exacerbation at this time. Continue all outpatient medications. (7) Acid reflux disease: Continue PPI. (8) Anxiety: Continue paxil, wellbutrin, and trazodone. (9) Diabetes mellitus with complication: HOLD metformin. DM diet. BSGs ac/hs. Novolog sliding scale - correction factor 30; carb ratio 1:10. (10) Morbid obesity with BMI of 40.0-44.9, adult: BMI 43.3 (11) DVT prophylaxis: lovenox 40mg daily. will obtain PT consult due to recent surgery and c/o fatigue since coming home from [facility]. History of Present Illness Chief Complaint: concern of infection Primary Care Provider: Anastasiya Ruiz DO 65yo female with recent ventral hernia repair at by Dr Campa on 05/10/20 and was discharged on 05/15/20 to home in [place] who presents with 24 hours of worsening redness, pain in the abdominal wall region, and swelling. No fevers. Some chills in the ER. She has a midline incision from the surgery but she has had no drainage from it. She is a diabetic and sugars have been acceptable since getting home. No history of MRSA or previous skin infections. Was checked for COVID-19 at [facility] and was negative. Allergies Allergy/AdvReac Type Severity Reaction Status Date / Time amoxicillin Allergy Intermediate HIVES Verified 05/22/20 06:37 cephalexin Allergy Intermediate HIVES Verified 05/22/20 06:37 chlorhexidine Allergy Intermediate RASH AND Verified 05/22/20 06:37 ITCHING clavulanic acid Allergy Intermediate HIVES Verified 05/22/20 06:37 latex Allergy Intermediate " WELT Verified 05/22/20 06:37 MARADIAGA" morphine Allergy Intermediate HEART Verified 05/22/20 06:37 RACING ? , PT NOT SURE EXACTLY oxycodone Allergy Intermediate HEART RACES Verified 05/22/20 06:37 Sulfa (Sulfonamide Allergy Unknown UNKOWN - Verified 05/22/20 06:37 Antibiotics) PT DOES NOT REMEMBER Home Medications Home Medications Medication Instructions Recorded Confirmed Type blood glucose control, normal #1 ea 06/01/19 03/01/20 History blood sugar diagnostic #100 ea 06/01/19 03/01/20 Rx blood-glucose meter #1 ea 06/01/19 03/01/20 History calcium carbonate 600 mg (1,500 2 cap PO BID cap 06/01/19 05/22/20 History mg)-vitamin D3 500 unit capsule lancets #100 ea 06/01/19 03/01/20 Rx multivitamin 1 tab PO QAM 06/01/19 05/22/20 History nebulizer accessories #1 ea 09/03/19 03/01/20 Rx nebulizers #1 ea 09/06/19 03/01/20 Rx trazodone 150 mg tablet 150 mg PO HS #90 tab 10/13/19 05/22/20 Rx metformin 500 mg tablet 500 mg PO BID #180 tab 11/29/19 05/22/20 Rx omeprazole 20 mg capsule,delayed 20 mg PO BID #60 cap 12/20/19 05/22/20 Rx release trazodone 50 mg tablet 50 mg PO HS #90 tab 01/17/20 05/22/20 Rx albuterol sulfate 2.5 mg INH Q6H PRN #360 ml 01/27/20 05/22/20 Rx magnesium oxide 400 mg (241.3 mg 400 mg PO QAM #30 tab 02/16/20 05/22/20 Rx magnesium) tablet fluticasone furoate 200 1 puffs INHALATION QAM #60 ea 02/25/20 05/22/20 Rx mcg-vilanterol 25 mcg/dose inhalation powder levothyroxine 175 mcg tablet 175 mcg PO QAM #30 tab 02/25/20 05/22/20 Rx ascorbic acid (vitamin C) 1,000 mg 1 gm PO BID tab 03/01/20 05/22/20 History tablet albuterol sulfate 90 mcg/actuation 2 puffs INH Q4H PRN #18 gm 03/06/20 05/22/20 Rx aerosol inhaler gabapentin 300 mg capsule 300 mg PO TID #90 cap 03/13/20 05/22/20 Rx loratadine 10 mg tablet 10 mg PO DAILY #30 tab 03/31/20 05/22/20 Rx losartan 25 mg tablet 25 mg PO QAM #90 tab 04/24/20 05/22/20 Rx paroxetine HCl 40 mg tablet 40 mg PO DAILY #90 tab 04/24/20 05/22/20 Rx bupropion HCl 100 mg tablet See Rx Instructions PO BID #135 tab 05/19/20 05/22/20 Rx vitamin B complex 1 tab PO DAILY 05/22/20 05/22/20 History Past Med/Surg History Medical History Acid reflux disease Anemia Anxiety Arthritis Asthma inhaler daily/prn Bulimia Depression Diabetes mellitus with complication Diabetic neuropathy Graves disease Graves' ophthalmopathy History of varicose veins Hypertension Incarcerated incisional hernia Morbid obesity Nontoxic multinodular goiter (Resolved) Postoperative primary hypothyroidism Premature ventricular contractions Venous insufficiency Ventral hernia Vitamin D deficiency Surgical History History of section x2 History of esophagogastroduodenoscopy (EGD) History of hysterectomy History of repair of right rotator cuff (03/2018) History of tonsillectomy 1963 History of tooth extraction all teeth History of total left knee replacement (TKR) History of total right knee replacement (TKR) S/P gastroplasty (~1979) vertical banded gastroplasty S/P total thyroidectomy (09/2017) secondary to Graves Disease Family History Mother Diabetes Hypertension Asthma Stroke age 66 Sister Myocardial infarction age 44 from [place] Grandmother Stomach cancer Brother Myocardial infarction Other No family history of adverse response to anesthesia Denies family history of Ovarian cancer Prostate cancer Breast cancer Lung cancer Colorectal cancer Social History (Updated 05/22/20 @ 09:55 by Mihai Schneider) Preferred Language: Sudanese Communication Ability: Effective Visual Impairment: No Limitations Hearing Ability: Normal Postal Carrier Required: No Beliefs That Will Affect Care: None marital status: Current Living Situation: Spouse current occupational status: retired and disabled 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) Other Information That Helps Us Care for You: No other: 2 daughters Feels Safe at Home: Yes Safety Concerns: Feels Safe At This Time Smoking Status: Former smoker Tobacco Type: cigarettes ; Cigarettes Per Day: 20 ; Do You Dip or Chew Tobacco: No ; Smoking End Date: about 1988 ; Number of Years Since Quit: 31 ; Second Hand Exposure: No ; Tobacco Cessation Education Requested by Patient: No Hx Alcohol Use: No Hx Substance Use: No Childhood Exposure to Second-Hand Smoke: Yes Diet Comment: regular caffeine: No Dental Care, Regularly: Yes Physical Activity Frequency: 1-2 Times per Week Seatbelt Use: always Sunscreen Use: No Review of Systems Constitutional: + chills and + anorexia (since getting home from [place] ); no fever Eyes: no worsening vision Ear, Nose, Mouth, Throat: no nasal congestion and no sore throat Respiratory: + cough and + dyspnea on exertion; no sputum production Cardiovascular: no chest pain Gastrointestinal: + abdominal pain and + vomiting (x 2 after hospital d/c from [facility]; none since ); no constipation Genitourinary: no dysuria Musculoskeletal: no joint pain Integumentary: as per Subjective / HPI and + erythema Neurologic: + numbness (from radicular pain from back ) Psychiatric: no depression and no anxiety Endocrine: BSGs since hospital discharge <200 Hematologic / Lymphatic: no easy bleeding and no easy bruising Physical Exam Constitutional: + morbidly obese; no acute distress and no altered mental status Eyes: PERRL ENMT: external ear and nose normal, oropharynx normal Neck: trachea midline, no thyromegaly Respiratory: normal respiratory effort, lungs clear to auscultation Cardiovascular: Rate/Rhythm: regular rate and regular rhythm Heart Sounds: normal S1 and normal S2; no murmur Vessels: posterior tibial pulses present and dorsalis pedis pulses present; no JVD Extremities: no edema Gastrointestinal (Abdomen): Inspection/Auscultation: + abdomen distended (mild); + abdomen abnormal to inspection and + abnormal bowel sounds (decreased ) Percussion/Palpation: + abdomen tender (near midline incision and over areas of erythema); no guarding and no hepatosplenomegaly midline incision from recent hernia repair; erythema starts at the incision and extends laterally both left and right, mainly on the lower half of the abdominal wall. Erythema extends to the groin. There are a few areas of quarter-size erythema on abdominal wall, especially on right side. one of the areas is near a former drain site. no palpable abscess anywhere. no drainage from actual incision. Musculoskeletal: no cyanosis or clubbing, extremities motor strength 5/5 Skin: + erythema (abdominal wall - see "GI" above) Neurologic: deep tendon reflexes 2+ bilaterally and moves all extremities Psychiatric: A+Ox3, euthymic affect Lymphatic: no cervical lymphadenopathy Results & Data Results & Data ([facility]) Vital Signs (Past 12 Hours) Vital Signs Temp Pulse Pulse Resp BP BP Pulse Ox 05/22/20 08:01 68 20 121/58 L 98 05/22/20 06:51 96 05/22/20 06:18 37.0 C 84 20 124/56 L 96 Laboratory Results Laboratory Results - last 24 hr 05/22/20 05/22/20 05/22/20 05:45 05:45 07:25 WBC 5.80 RBC 2.77 L Hgb 7.9 L Hct 24.8 L MCV 89.5 MCH 28.5 MCHC 31.9 L RDW Std Deviation 45.4 RDW Coeff of Lily 13.7 Plt Count 351 MPV 9.4 Immature Gran % (Auto) 0.2 Neut % (Auto) 66.9 Lymph % (Auto) 13.1 [place] % (Auto) 15.7 Eos % (Auto) 3.8 Baso % (Auto) 0.3 Neut # (Auto) 3.88 Lymph # (Auto) 0.76 L [place] # (Auto) 0.91 H Eos # (Auto) 0.22 Baso # (Auto) 0.02 Immature Gran # (Auto) 0.01 RBC Morphology Unremarkable Sodium 140 Potassium 4.5 Chloride 103 Carbon Dioxide 32 Anion Gap 5.0 BUN 11 Creatinine 0.84 Est Cr Clr Drug Dosing 83.9 Est GFR ( Amer) 85.1 Est GFR (Non-Af Amer) 73.4 BUN/Creatinine Ratio 12.7 Glucose 113 H POC Glucose Calcium 8.9 Total Bilirubin 0.3 AST 13 L ALT 20 Alkaline Phosphatase 104 Total Protein 6.0 L Albumin 2.3 L Globulin 3.7 Albumin/Globulin Ratio 0.6 L Lipase 92 Urine Color Yellow Urine Appearance Clear Urine pH 8.0 H Ur Specific [place] 1.013 Urine Protein Negative Urine Glucose (UA) Negative Urine Ketones Negative Urine Blood Negative Urine Nitrite Negative Urine Bilirubin Negative Urine Urobilinogen Negative Ur Leukocyte Esterase Negative 05/22/20 05/22/20 12:26 17:03 WBC RBC Hgb Hct MCV MCH MCHC RDW Std Deviation RDW Coeff of Lily Plt Count MPV Immature Gran % (Auto) Neut % (Auto) Lymph % (Auto) [place] % (Auto) Eos % (Auto) Baso % (Auto) Neut # (Auto) Lymph # (Auto) [place] # (Auto) Eos # (Auto) Baso # (Auto) Immature Gran # (Auto) RBC Morphology Sodium Potassium Chloride Carbon Dioxide Anion Gap BUN Creatinine Est Cr Clr Drug Dosing Est GFR ( Amer) Est GFR (Non-Af Amer) BUN/Creatinine Ratio Glucose POC Glucose 128 H 110 H Calcium Total Bilirubin AST ALT Alkaline Phosphatase Total Protein Albumin Globulin Albumin/Globulin Ratio Lipase Urine Color Urine Appearance Urine pH Ur Specific [place] Urine Protein Urine Glucose (UA) Urine Ketones Urine Blood Urine Nitrite Urine Bilirubin Urine Urobilinogen Ur Leukocyte Esterase Diagnostic Findings CT abd/pelvis - IMPRESSION: 1. Interval ventral hernia repair. 2. 4 x 2 cm gas and soft tissue collection within the subcutaneous tissues deep to the incisional site. 3. This potentially is simply postoperative, although this should be closely monitored to exclude a postprocedural abscess. 4. Mild body wall anasarca. 5. 7 mm calculus within the left renal pelvis unchanged EKG - NSR, NS ST changes III, V2 Code Status & VTE Plan Code Status DNR/DNI VTE Prophylaxis Plan VTE Prophylaxis will be ordered: Yes PG Care Time/CCT Total # of Minutes Spent Total Time Spent with Patient: Total time spent is greater than 50% in coordination of care (as documented) at patient's floor/unit and/or counseling patient: Coding Level of Care Code 27216 Initial Inpt Care Lvl 2 Diagnoses Abdominal wall cellulitis L03.311 S/P repair of ventral hernia Z98.890; Z87.19 Anemia D64.9 Anemia type: unspecified type Postoperative primary hypothyroidism E89.0 Hypertension I10 Hypertension type: essential hypertension Asthma J45.909 Asthma severity: unspecified severity Asthma persistence: unspecified Asthma complication type: unspecified Acid reflux disease K21.9 Esophagitis presence: without esophagitis Anxiety F41.9 Diabetes mellitus with complication E11.8 Morbid obesity with BMI of 40.0-44.9, adult E66.01; Z68.41 DVT prophylaxis Z29.9 (1) Anemia Anemia type: unspecified type Qualified Code(s): D64.9 - Anemia, unspecified (2) Hypertension Hypertension type: essential hypertension Qualified Code(s): I10 - Essential (primary) hypertension (3) Asthma Asthma severity: unspecified severity Asthma persistence: unspecified Asthma complication type: unspecified Qualified Code(s): J45.909 - Unspecified asthma, uncomplicated (4) Acid reflux disease Esophagitis presence: without esophagitis Qualified Code(s): K21.9 - Gastro- esophageal reflux disease without esophagitis
[2020-05-22] MEDS: ERTAPENEM SODIUM 1,000 MG in SODIUM CHLORIDE 0.9% 50 ML IV SCH (11:38)
[2020-05-22] MEDS ORDERED: HYDROmorphone INJ 0.5 MG/0.5 ML SYR IV PRN (11:49)
[2020-05-22] MEDS ORDERED: ONDANSETRON INJ 2 MG/ML 2 ML VIAL IV PRN (11:49)
[2020-05-22] MEDS ORDERED: ACETAMINOPHEN 325 MG TAB PO PRN (11:49)
[2020-05-22] MEDS ORDERED: ALBUTEROL 0.083% NEBU SOLN 3 ML VIAL INH PRN (11:49)
[2020-05-22] MEDS ORDERED: HYDROCODONE/ACETAMINOPHEN 7.5/325MG TAB PO PRN (11:49)
[2020-05-22] MEDS ORDERED: KETOROLAC 30 MG/ML VIAL IV PRN (11:49)
[2020-05-22] MEDS ORDERED: VANCOMYCIN HCL 1,000 MG in SODIUM CHLORIDE 0.9% 250 ML IV SCH (11:49)
[2020-05-22] MEDS ORDERED: VANCOMYCIN CONSULT ACTIVE PRN (11:49)
[2020-05-22] MEDS ORDERED: ALBUTEROL HFA 8 GM INHALER INH PRN (11:49)
[2020-05-22] MEDS ORDERED: VANCOMYCIN HCL 2,750 MG in SODIUM CHLORIDE 0.9% 500 ML IV STA (11:55)
[2020-05-22] MEDS: SODIUM CHLORIDE 0.9% 1000ML 1,000 ML IV SCH ×2 (12:19→23:41)
[2020-05-22] MEDS ORDERED: CARBOHYDRATES FOR HYPOGLYCEMIA PO PRN (12:30)
[2020-05-22] MEDS ORDERED: GLUCOSE 10 TABS/TUBE PO PRN (12:30)
[2020-05-22] MEDS ORDERED: GLUCOSE 40% GEL 15 GM TUBE PO PRN (12:30)
[2020-05-22] MEDS ORDERED: GLUCAGON FOR INJ 1 MG VIAL IM PRN (12:30)
[2020-05-22] MEDS ORDERED: DEXTROSE 50% 50 ML SYRINGE IV PRN (12:30)
[2020-05-22] MEDS: FLUTICASONE/VILANTEROL 200/25MCG 14 PUFFS/INHALER INH SCH (13:27)
[2020-05-22] MEDS: ENOXAPARIN INJ 40 MG/0.4 ML SYR SQ SCH (13:28)
[2020-05-22] MEDS: INSULIN ASPART 100 UNITS/ML 3 ML PEN SC SCH ×3 (13:35→21:08)
[2020-05-22] MEDS: GABAPENTIN 300 MG CAP PO SCH ×2 (13:36→20:33)
[2020-05-22] MEDS: buPROPion HCl 100 MG TABLET PO SCH ×2 (13:54→20:34)
[2020-05-22] MEDS: LACTOBACILLUS ACIDOPHILUS (FLORANEX) TAB PO SCH ×3 (14:23→20:32)
--- NOTE | 2020-05-22 14:46 | Pharmacy Report ---
Pharmacy Abx Initial Consult - Date of Service May 22, 2020 - Pharmacy Dosing Scope Date of Consult: 05/22 Consultation requested by: Dr. Schneider Pharmacy is consulted to initiate vancomycin IV/PO dosing therapy, order appropriate labs and adjust drug dose/frequency. - Subjective The patient is a 65 year old F admitted on 05/22/20 10:19. - Objective Height: 5 ft 4 in Weight: 114.3 kg Vital Signs (Past 12hrs): Vital Signs Temp Pulse Pulse Resp BP BP Pulse Ox 05/22/20 12:30 36.8 C 81 20 152/84 H 97 05/22/20 10:49 70 18 131/50 L 97 05/22/20 09:00 67 21 106/67 91 05/22/20 08:48 72 23 119/72 96 05/22/20 08:01 68 20 121/58 L 98 05/22/20 08:00 70 18 121/58 L 97 05/22/20 07:57 75 13 92 05/22/20 07:00 69 16 122/58 L 95 05/22/20 06:51 96 05/22/20 06:22 72 16 124/56 L 95 05/22/20 06:18 37.0 C 84 20 124/56 L 96 Lab Results (24hrs): Laboratory Tests (24 Hours) 05/22/20 05/22/20 05:45 05:45 WBC 5.80 Neut # (Auto) 3.88 Creatinine 0.84 Est Cr Clr Drug Dosing 83.9 - Risk Factors for Resistance * Hospitalization for 48 hours or more within the past 90 days * Antimicrobial use within the last 90 days [i - Assessment & Plan Assessment 65 year old F with recent hernia repair at [facility] presenting with redness, pain and swelling of the abdominal wall. Starting vancomycin + ertapenem for possible post-surgical abscess/ SSTI. Plan Vancomycin IV * Estimated PK Parameters: Vd 0.6 L/kg, Isidro 0.074hr-1, t1/2 9.3 hr * Loading dose: 2750 mg (24 mg/kg) * Maintenance dose: 1500 mg IV (13mg/kg) every 12 hours * Goal trough level 15-20 mcg/mL * Trough ordered for 05/24@ 0030 * A less than traditional dose and/or extended dosing interval has/have been selected due to likelihood of drug accumulation in obese patient Pharmacy will continue to follow and will adjust dose/frequency as necessary. Thank you.
[2020-05-22] MEDS: ASCORBIC ACID 500 MG TAB PO SCH (20:32)
[2020-05-22] MEDS: CALCIUM 600MG + VIT D 400 IU TAB PO SCH (20:33)
[2020-05-22] MEDS: PANTOprazole 40 MG TAB PO SCH (20:33)
[2020-05-22] MEDS: FERROUS SULFATE 325 MG TAB PO SCH (20:35)
[2020-05-22] MEDS ORDERED: TRAZODONE HCL 50 MG TAB PO SCH (21:00)
[2020-05-22] MEDS: TRAZODONE HCL 100 MG TAB PO SCH (22:20)
[2020-05-22] MEDS: VANCOMYCIN HCL 1,500 MG in SODIUM CHLORIDE 0.9% 500 ML IV SCH (23:41)
[2020-05-23] MEDS: LEVOTHYROXINE SODIUM 175 MCG TABLET PO SCH (04:57)
[2020-05-23 06:10] LABS: Basophils # (auto) 0.02 K/uL (0-0.2); Basophils % (auto) 0.3 %; Eosinophils # (auto) 0.19 K/uL (0-0.5); Eosinophils % (auto) 3.2 %; Hematocrit (blood only) 25.7 % (37-47); Immature Granulocytes # (auto) 0.01 K/uL (0.00-0.02); Immature Granulocytes % (auto) 0.2 %; Lymphocytes # (auto) 0.82 K/uL (1.2-3.4); Lymphocytes % (auto) 13.9 %; Mean Corpuscular Hemoglobin 28.5 pg (25-34); Mean Corpuscular Hgb Conc 31.1 g/dL (32-36); Mean Corpuscular Volume 91.5 fL (80-100); Mean Platelet Volume 9.4 fL (7.4-10.4); Monocytes # (auto) 0.72 K/uL (0.11-0.59); Monocytes % (auto) 12.2 %; Neutrophils # (auto) 4.15 K/uL (1.4-6.5); Neutrophils % (auto) 70.2 %; Platelet Count 399 K/uL (130-400); RDW Coefficient of Variation 13.9 % (11.5-14.5); RDW Standard Deviation 46.3 fL (36.4-46.3); Red Blood Count 2.81 M/uL (4.2-5.4); White Blood Count 5.91 K/uL (4.8-10.8)
--- NOTE | 2020-05-23 06:11 | Electrocardiogram Report ---
Test Reason : Blood Pressure : / mmHG Vent. Rate : 070 BPM Atrial Rate : 070 BPM P-R Int : 156 ms QRS Dur : 094 ms QT Int : 394 ms P-R-T Axes : 014 016 030 degrees QTc Int : 425 ms Normal sinus rhythm When compared with ECG of 26-FEB-2020 00:33, Premature atrial complexes are no longer Present Confirmed by Anthony Solis ([id number]) on 05/23/2020 6:11:32 AM Referred By: REFERRED SELF Confirmed By:Anthony Solis
[2020-05-23 06:50] LABS: BUN Creatinine Ratio 9.4 (10-20); Calcium 8.5 mg/dl (8.5-10.1); Creatinine Clr Calc Pharmacy 81.9 ml/min; Est GFR (African American) 82.7; Est GFR (Non-African American) 71.4; Magnesium 1.9 mg/dl (1.8-2.4); Potassium 4.5 mmol/L (3.5-5.1)
[2020-05-23] MEDS: INSULIN ASPART 100 UNITS/ML 3 ML PEN SC SCH ×4 (08:48→21:49)
[2020-05-23] MEDS: FLUTICASONE/VILANTEROL 200/25MCG 14 PUFFS/INHALER INH SCH (08:55)
[2020-05-23] MEDS: buPROPion HCl 100 MG TABLET PO SCH ×3 (08:55→21:33)
[2020-05-23] MEDS: GABAPENTIN 300 MG CAP PO SCH ×3 (08:56→21:38)
[2020-05-23] MEDS: FERROUS SULFATE 325 MG TAB PO SCH ×3 (08:57→21:41)
[2020-05-23] MEDS: CALCIUM 600MG + VIT D 400 IU TAB PO SCH ×2 (08:57→21:38)
[2020-05-23] MEDS: PANTOprazole 40 MG TAB PO SCH ×2 (08:57→21:34)
[2020-05-23] MEDS: LORATADINE 10 MG TAB PO SCH (08:58)
[2020-05-23] MEDS: LACTOBACILLUS ACIDOPHILUS (FLORANEX) TAB PO SCH ×4 (08:58→21:39)
[2020-05-23] MEDS: ASCORBIC ACID 500 MG TAB PO SCH ×2 (08:58→21:37)
[2020-05-23] MEDS: PARoxetine HCL 20 MG TAB PO SCH (08:58)
[2020-05-23] MEDS: VITAMIN B COMPLEX TAB PO SCH (08:58)
[2020-05-23] MEDS: MULTIVITAMIN TAB PO SCH (08:58)
[2020-05-23] MEDS: MAGNESIUM OXIDE 400 MG TAB PO SCH (08:59)
[2020-05-23] MEDS ORDERED: buPROPion HCl 100 MG TABLET PO SCH (09:00)
[2020-05-23] MEDS: ERTAPENEM SODIUM 1,000 MG in SODIUM CHLORIDE 0.9% 50 ML IV SCH (09:32)
--- NOTE | 2020-05-23 12:30 | Hospitalist Progress Note ---
Date of Service May 23, 2020 Assessment & Plan (1) Abdominal wall cellulitis: Post-operative abdominal wall cellulitis (ventral hernia repair 05/10 at [facility]). Multiple antibiotic allergies -responding well to vancomycin and ertapenem, will continue intravenous antibiotics for 48 hours and discussed with the surgeon (Dr Campa) regarding oral antibiotics on discharge. Anticipate home tomorrow. (2) S/P repair of ventral hernia: 05/10/2020 at [facility]. Surgeon - Dr Angelita Campa. 5-day stay. Uncomplicated by report. (3) Heart murmur: Of doubtful significance with cellulitis as above. No fevers/WBC with current illness. Unfortunately no blood cultures taken prior to antibiotics being given but no peripheral stigmata of infective endocarditis. Will get blood cultures now but have PCP follow up murmur and if still present as outpatient. If blood cultures positive she'll need an inpatient TTE/KELLY but given low likelihood of IE and need to follow up with outpatient surgeon on she does not need to stay inpatient to await for these to be negative. (4) Anemia: Hb in February was 13. Now 7.9. Suspect she had acute blood loss anemia at [facility] from surgery, blood draws, etc. Will start ferrous sulfate 325mg Q2D - monitor for constipation. Hgb stable. (5) Postoperative primary hypothyroidism: TSH 02/2020 wnl. Cont synthroid. (6) Hypertension: Hold losartan. BP low-normal at time of presentation today. (7) Asthma: No exacerbation at this time. Continue all outpatient medications. (8) Acid reflux disease: Continue PPI. (9) Anxiety: Continue paxil, wellbutrin, and trazodone. (10) Diabetes mellitus with complication: HOLD metformin. DM diet. BSGs ac/hs. Continue Novolog sliding scale - switch to correction factor only - no need for basal dosing at this time (11) Morbid obesity with BMI of 40.0-44.9, adult: BMI 43.3 (12) DVT prophylaxis: lovenox 40mg daily. PT consult pending. Admission and Anticipated Discharge Date Admission Date: May 22, 2020 Anticipated date of discharge: 05/24/20 Subjective Patient reports improvement in erythema of cellulitis. No pus from wound. No fevers or chills. Review of Systems Review of Systems: All systems reviewed & are unremarkable except as noted in HPI & below Physical Exam Constitutional: + morbidly obese; no acute distress and no altered mental status Eyes: + anicteric sclerae; normal pupil size ENMT: external ear and nose normal, oropharynx normal Neck: trachea midline Respiratory: normal respiratory effort, lungs clear to auscultation Cardiovascular: Rate/Rhythm: regular rate and regular rhythm Heart Sounds: + murmur (LUSB systolic) Vessels: no JVD Extremities: normal capillary refill and + pedal edema Gastrointestinal (Abdomen): Inspection/Auscultation: + abdomen abnormal to inspection, abdomen not distended and + abnormal bowel sounds (decreased) Percussion/Palpation: + abdomen tender (around surgical scar and cellulitic areas), abdomen soft and + hepatosplenomegaly; no guarding and abdomen not rigid Musculoskeletal: no cyanosis or clubbing, extremities motor strength 5/5 Skin: + erythema (improving from marked area, appear much more localized around surgical scar) Neurologic: moves all extremities and awake Psychiatric: A+Ox3, euthymic affect Results & Data Results & Data ([facility]) Vital Signs (Past 12 Hours) Vital Signs Temp Pulse Resp BP Pulse Ox 05/23/20 07:34 37.3 C 84 16 129/58 L 92 PG Care Time/CCT Total # of Minutes Spent Total Time Spent with Patient: Total time spent is greater than 50% in coordination of care (as documented) at patient's floor/unit and/or counseling patient: Coding Level of Care Code 93595 Subseq Hosp Care Lvl 2 Diagnoses Abdominal wall cellulitis L03.311 S/P repair of ventral hernia Z98.890; Z87.19 Heart murmur R01.1 Anemia D64.9 Anemia type: unspecified type Postoperative primary hypothyroidism E89.0 Hypertension I10 Hypertension type: essential hypertension Asthma J45.909 Asthma severity: unspecified severity Asthma persistence: unspecified Asthma complication type: unspecified Acid reflux disease K21.9 Esophagitis presence: without esophagitis Anxiety F41.9 Diabetes mellitus with complication E11.8 Morbid obesity with BMI of 40.0-44.9, adult E66.01; Z68.41 DVT prophylaxis Z29.9 (1) Anemia Anemia type: unspecified type Qualified Code(s): D64.9 - Anemia, unspecified (2) Hypertension Hypertension type: essential hypertension Qualified Code(s): I10 - Essential (primary) hypertension (3) Asthma Asthma severity: unspecified severity Asthma persistence: unspecified Asthma complication type: unspecified Qualified Code(s): J45.909 - Unspecified asthma, uncomplicated (4) Acid reflux disease Esophagitis presence: without esophagitis Qualified Code(s): K21.9 - Gastro- esophageal reflux disease without esophagitis
[2020-05-23] MEDS: ENOXAPARIN INJ 40 MG/0.4 ML SYR SQ SCH (13:24)
[2020-05-23] MEDS: VANCOMYCIN HCL 1,500 MG in SODIUM CHLORIDE 0.9% 500 ML IV SCH (13:53)
[2020-05-23] MEDS: TRAZODONE HCL 100 MG TAB PO SCH (21:36)
[2020-05-24] MEDS ORDERED: VANCOMYCIN TROUGH ONE (00:30)
[2020-05-24] MEDS: VANCOMYCIN HCL 1,500 MG in SODIUM CHLORIDE 0.9% 500 ML IV SCH (01:06)
[2020-05-24] MEDS: LEVOTHYROXINE SODIUM 175 MCG TABLET PO SCH (06:14)
[2020-05-24] MEDS: buPROPion HCl 100 MG TABLET PO SCH (07:45)
[2020-05-24] MEDS: FLUTICASONE/VILANTEROL 200/25MCG 14 PUFFS/INHALER INH SCH (07:45)
[2020-05-24] MEDS: ASCORBIC ACID 500 MG TAB PO SCH (07:46)
[2020-05-24] MEDS: MULTIVITAMIN TAB PO SCH (07:46)
[2020-05-24] MEDS: PANTOprazole 40 MG TAB PO SCH (07:46)
[2020-05-24] MEDS: PARoxetine HCL 20 MG TAB PO SCH (07:46)
[2020-05-24] MEDS: VITAMIN B COMPLEX TAB PO SCH (07:46)
[2020-05-24] MEDS: GABAPENTIN 300 MG CAP PO SCH (07:47)
[2020-05-24] MEDS: MAGNESIUM OXIDE 400 MG TAB PO SCH (07:47)
[2020-05-24] MEDS: LORATADINE 10 MG TAB PO SCH (07:47)
[2020-05-24] MEDS: CALCIUM 600MG + VIT D 400 IU TAB PO SCH (07:47)
[2020-05-24] MEDS: LACTOBACILLUS ACIDOPHILUS (FLORANEX) TAB PO SCH (07:47)
[2020-05-24] MEDS: INSULIN ASPART 100 UNITS/ML 3 ML PEN SC SCH (08:31)
[2020-05-24] MEDS ORDERED: FERROUS SULFATE 325 MG TAB PO SCH (09:00)
[2020-05-24] MEDS: ERTAPENEM SODIUM 1,000 MG in SODIUM CHLORIDE 0.9% 50 ML IV SCH (10:37)
--- NOTE | 2020-05-24 11:06 | Discharge Summary ---
Date of Service May 24, 2020 Admission HPI Per Admitting Provider 65yo female with recent ventral hernia repair at [facility] by Dr Campa on 05/10/20 and was discharged on 05/15/20 to home in [place] who presents with 24 hours of worsening redness, pain in the abdominal wall region, and swelling. No fevers. Some chills in the ER. She has a midline incision from the surgery but she has had no drainage from it. She is a diabetic and sugars have been acceptable since getting home. No history of MRSA or previous skin infections. Was checked for COVID-19 at [facility] and was negative. Admission Exam Per Admitting Provider Constitutional: + morbidly obese; no acute distress and no altered mental status Eyes: PERRL ENMT: external ear and nose normal, oropharynx normal Neck: trachea midline, no thyromegaly Respiratory: normal respiratory effort, lungs clear to auscultation Cardiovascular: Rate/Rhythm: regular rate and regular rhythm Heart Sounds: normal S1 and normal S2; no murmur Vessels: posterior tibial pulses present and dorsalis pedis pulses present; no JVD Extremities: no edema Gastrointestinal (Abdomen): Inspection/Auscultation: + abdomen distended (mild); + abdomen abnormal to inspection and + abnormal bowel sounds (decreased ) Percussion/Palpation: + abdomen tender (near midline incision and over areas of erythema); no guarding and no hepatosplenomegaly midline incision from recent hernia repair; erythema starts at the incision and extends laterally both left and right, mainly on the lower half of the abdominal wall. Erythema extends to the groin. There are a few areas of quarter-size erythema on abdominal wall, especially on right side. one of the areas is near a former drain site. no palpable abscess anywhere. no drainage from actual incision. Musculoskeletal: no cyanosis or clubbing, extremities motor strength 5/5 Skin: + erythema (abdominal wall - see "GI" above) Neurologic: deep tendon reflexes 2+ bilaterally and moves all extremities Psychiatric: A+Ox3, euthymic affect Lymphatic: no cervical lymphadenopathy Principal Diagnosis Post surgical abdominal wall cellulitis Discharge Exam Patient feeling well. No fevers or chills. Abdominal cellulitis improving Constitutional + morbidly obese; no acute distress and no altered mental status Cardiovascular Rate/Rhythm: regular rate and regular rhythm Heart Sounds: + murmur (LUSB systolic) Gastrointestinal (Abdomen) Inspection/Auscultation: + abdomen abnormal to inspection, abdomen not distended and + abnormal bowel sounds (decreased) Percussion/Palpation: + abdomen tender (Improving around surgical scar and cellulitic areas) and abdomen soft; no guarding and abdomen not rigid Skin + erythema (improving from yesterday's exam, mostly around surgical scar this time) Neurologic awake Discharge Data Allergies Allergy/AdvReac Type Severity Reaction Status Date / Time amoxicillin Allergy Intermediate HIVES Verified 05/22/20 06:37 cephalexin Allergy Intermediate HIVES Verified 05/22/20 06:37 chlorhexidine Allergy Intermediate RASH AND Verified 05/22/20 06:37 ITCHING clavulanic acid Allergy Intermediate HIVES Verified 05/22/20 06:37 latex Allergy Intermediate " WELT Verified 05/22/20 06:37 MARADIAGA" morphine Allergy Intermediate HEART Verified 05/22/20 06:37 RACING ? , PT NOT SURE EXACTLY oxycodone Allergy Intermediate HEART RACES Verified 05/22/20 06:37 Sulfa (Sulfonamide Allergy Unknown UNKOWN - Verified 05/22/20 06:37 Antibiotics) PT DOES NOT REMEMBER Consultations 05/22/20 09:25 ED Decision to Admit Stat Ordered Studies 05/22/20 06:37 CT abd pelvis wo con Stat COMPARISON STUDY: 02/26/2020 FINDINGS: Minimal basilar atelectasis. Prior gastric bypass procedure. Liver spleen and pancreas are unremarkable. Renal calcification within the left renal pelvis unchanged from the prior study. This measures 7 mm. Gallbladder is negative for distention. Kidneys again are negative for hydronephrosis. Evidence for interval hernia repair. Small gas pocket within the subcutaneous tissues at the operative site. This may simply be postoperative versus small abscess measuring 4 x 2 cm Considerable infiltrative change of the anterior abdominal wall as well as flank cutaneous fat. This may indicate a component of body wall anasarca as well as postoperative change. Bladder is midline. No free fluid within the pelvic cul-de-sac. The bowel pattern overall is nonobstructive. Cm impossible to exclude. IMPRESSION: 1. Interval ventral hernia repair. 2. 4 x 2 cm gas and soft tissue collection within the subcutaneous tissues deep to the incisional site. 3. This potentially is simply postoperative, although this should be closely monitored to exclude a postprocedural abscess. 4. Mild body wall anasarca. 5. 7 mm calculus within the left renal pelvis unchanged Hospital Course (1) Abdominal wall cellulitis: Alma Delia Conklin is a 65 year old female admitted to [facility] from May 22-2019 due to post surgical abdominal wall cellulitis. Treated with intravenous vancomycin and ertapenem with rapid improved over 48 hours. Discharge was discussed with her surgeon (Dr Campa) and she will switch to clindamycin to finish a 7-day course of antibiotics. She was recommended to take probiotic while on antibiotics . She will follow-up with her surgeon tomorrow for reassessment of her cellulitis. Blood cultures taken are pending at this time, we will follow these up and she will be called if positive. Incidental findings of anemia. Discussed with her surgeon and this does not appear to be acutely changing since her surgery. Started on ferrous sulfate supplementation for this. She is asymptomatic on discharge. Incidental finding of murmur on auscultation. Unlikely pathologically related to cellulitis however could represent hyperdynamic cardiac status in the setting of cellulitis. No peripheral stigmata of infective endocarditis was present on exam, however this was the main reason blood cultures were taken 24 hours after antibiotic started. Recommend following up with PCP and if none are still present recommend echocardiogram. I advised her this infection would have been easier to treat without a penicillin allergy. No prior history of anaphylaxis and questionable true allergy, therefore recommend she is referred to an scientific linguist for penicillin allergy testing and retrial performed on her next infection with a penicillin if negative. Kind regards Dr. Mihai Garcia (2) S/P repair of ventral hernia: (3) Heart murmur: (4) Anemia: (5) Postoperative primary hypothyroidism: (6) Hypertension: (7) Asthma: (8) Acid reflux disease: (9) Anxiety: (10) Diabetes mellitus with complication: (11) Morbid obesity with BMI of 40.0-44.9, adult: Total Time Total Time Spent Total Time Spent (In Minutes): 35 Total Time Includes: Examination of the Patient, Discharge Planning, Medication Reconciliation and Communication With Other Providers (Dr Campa) Discharge Plan Discharge Items Patient Disposition: Home - Self-Care Reason For Visit: Abdominal WALL CELLULITIS Discharge Diagnosis: Post surgical abdominal wall cellulitis Condition on Discharge: Good Activity: Resume your previous activity Non-emergency contact: Surgeon Call non-emergency contact if: you have any medication questions and your symptoms worsen Follow-up/Referrals: Anastasiya Ruiz, [Primary Care Provider] - 05/30/20 3:00 pm (No routine follow up required) Diet: Carb Consistent or DM2 Addtl Attending Provider Instructions: You were admitted to [facility] from May 22-2019 due to abdominal wall cellulitis. This was treated with intravenous vancomycin and ertapenem to good effect. You will be discharged on clindamycin to finish a 7- day course. Recommend taking a probiotic while on this antibiotic to reduce your risk of diarrhea and c. diff. If you have watery diarrhea please call you PCP or your surgeon for further advice/testing. Blood cultures were taken and you will be called if subsequently become positive. Please follow-up with your surgeon at [place] as previously arranged to determine if you require a prolonged course of antibiotics. You were noted to be anemic, due to you recent operation and recommend starting on an iron supplement every other day as prescribed below. In addition you were noted to have an incidental murmur on exam. Recommend you follow up with your PCP regarding this and if still present recommend an echocardiogram to further assess. I would also recommend referral to scientific linguist to test for a penicillin allergy and a retrial of penicillin at some point if you are determined to not be allergic. Kind regards, Dr Mihai Garcia Pending Studies at Discharge: Yes (Final results of blood cultures) Stand-Alone Forms: [facility], Smoking Cessation Medications and DC Order Prescriptions: New ferrous sulfate 325 mg (65 mg iron) Tablet,Delayed Release (Dr/Ec) 325 mg PO Q2D Qty: 30 RF: 0 Lactobacillus acidoph-L.bulgar [Floranex] 1 million cell Tablet 4 tab PO QIDM 7 Days Qty: 112 RF: 0 clindamycin HCl 300 mg capsule 300 mg PO Q6H 5 Days Qty: 20 RF: 0 Continued (DME) nebulizer accessories kit See Dose Instructions .ROUTE .MEDSUPPLY Qty: 1 RF: 0 (DME) nebulizers mis See Dose Instructions .ROUTE .MEDSUPPLY Qty: 1 RF: 0 metformin 500 mg tablet 500 mg PO BID Qty: 180 RF: 2 omeprazole 20 mg capsule,delayed release(DR/EC) 20 mg PO BID Qty: 60 RF: 5 trazodone 50 mg tablet 50 mg PO HS Qty: 90 RF: 1 albuterol sulfate 2.5 mg /3 mL (0.083 %) solution for nebulization 2.5 mg INH Q6H PRN (Reason: shortness of breath or wheezing) Qty: 360 RF: 5 magnesium oxide 400 mg (241.3 mg magnesium) tablet 400 mg PO QAM Qty: 30 RF: 5 Breo Ellipta 200-25 mcg/dose blister with device 1 puffs inhalation QAM Qty: 60 RF: 5 levothyroxine 175 mcg tablet 175 mcg PO QAM Qty: 30 RF: 5 albuterol sulfate [Ventolin HFA] 90 mcg/actuation HFA aerosol inhaler 2 puffs INH Q4H PRN (Reason: shortness of breath or wheezing) Qty: 18 RF: 2 gabapentin 300 mg capsule 300 mg PO TID Qty: 90 RF: 5 loratadine [Claritin] 10 mg tablet 10 mg PO DAILY Qty: 30 RF: 5 losartan [Cozaar] 25 mg tablet 25 mg PO QAM Qty: 90 RF: 1 paroxetine HCl [Paxil] 40 mg tablet 40 mg PO DAILY Qty: 90 RF: 1 bupropion HCl 100 mg tablet See Rx Instructions PO BID Qty: 135 RF: 5 calcium carbonate-vitamin D3 600 mg(1,500mg) -500 unit capsule 2 cap PO BID RF: 0 multivitamin tablet 1 tab PO QAM RF: 0 (DME) blood glucose control, normal [OneTouch Ultra Control] solution See Dose Instructions .ROUTE .MEDSUPPLY Qty: 1 RF: 0 (DME) blood-glucose meter [OneTouch Ultra2 Meter] kit See Dose Instructions .ROUTE .MEDSUPPLY Qty: 1 RF: 0 (DME) lancets [OneTouch UltraSoft Lancets] misc See Dose Instructions .ROUTE .MEDSUPPLY Qty: 100 RF: 0 (DME) OneTouch Ultra Blue Test Strip strip See Dose Instructions .ROUTE .MEDSUPPLY Qty: 100 RF: 0 ascorbic acid (vitamin C) 1,000 mg tablet 1 gm PO BID RF: 0 vitamin B complex Tablet 1 tab PO DAILY RF: 0 No Action trazodone 150 mg tablet 150 mg PO HS Qty: 90 RF: 1 Discharge Orders: Discharge Order (Routine); Ordered 05/24/20 Ordered By: Mihai Garcia Admission Data Admit Date/Time: 05/22/20 10:19 Attending Provider: Mihai Garcia Admit Provider: Mihai Schneider Primary Care Provider: Anastasiya Ruiz Other Interventions: Discharge Summary Assessment (RN) Last Done: 05/24/20 11:07 DC Date/Time DO NOT enter until pt leaves facility: 05/24/20 12:50 Coding Level of Care Code D/C Day Management >30 mins Diagnoses Abdominal wall cellulitis L03.311 S/P repair of ventral hernia Z98.890; Z87.19 Heart murmur R01.1 Anemia D64.9 Anemia type: unspecified type Postoperative primary hypothyroidism E89.0 Hypertension I10 Hypertension type: essential hypertension Asthma J45.909 Asthma complication type: unspecified Asthma persistence: unspecified Asthma severity: unspecified severity Acid reflux disease K21.9 Esophagitis presence: without esophagitis Anxiety F41.9 Diabetes mellitus with complication E11.8 Morbid obesity with BMI of 40.0-44.9, adult E66.01; Z68.41
== END 2020-05-24 12:50 | disposition home or self-care (01) ==
LOC: ED 06:16 → INTOOBSV 10:19 → SUATTDRO 10:19 → 3N 10:19

== ENCOUNTER 2021-05-17 08:00 | Observation (INO) ==
--- NOTE | 2021-05-03 11:06 | PAT Medication Instructions ---
Medication Instructions Date of Service May 03, 2021 Home Medications Medication Instructions Recorded lancets #100 ea 06/01/19 nebulizer accessories #1 ea 09/03/19 nebulizers #1 ea 09/06/19 albuterol sulfate 2.5 mg INH Q6H PRN #360 ml 01/27/20 albuterol sulfate 90 mcg/actuation 2 puff INH Q4H PRN #18 g 07/25/20 aerosol inhaler levothyroxine 175 mcg tablet 175 mcg PO QAM #30 tab 08/21/20 trazodone 50 mg tablet 50 mg PO HS #90 tab 10/27/20 metformin 500 mg tablet 500 mg PO BID #180 tab 11/15/20 trazodone 150 mg tablet 150 mg PO HS #90 tab 11/15/20 blood sugar diagnostic #100 ea 02/16/21 fluticasone furoate 200 1 inh INHALATION QAM #60 ea 02/19/21 mcg-vilanterol 25 mcg/dose inhalation powder ammonium lactate 12 % topical cream 1 applic TOPICAL DAILY PRN #385 g 03/27/21 cholecalciferol (vitamin D3) 125 5,000 unit PO BID #60 cap 03/27/21 mcg (5,000 unit) capsule losartan 25 mg tablet 25 mg PO QAM #90 tab 03/27/21 magnesium oxide 400 mg (241.3 mg 400 mg PO QAM #90 tab 03/27/21 magnesium) tablet bupropion HCl 100 mg tablet 200 mg PO BID #360 tab 04/23/21 calcium carbonate 600 mg (1,500 mg)-vitamin D3 500 unit capsule 2 cap PO BID multivitamin 1 tab PO QAM albuterol sulfate 2.5 mg INH Q6H PRN ascorbic acid (vitamin C) 1,000 mg tablet 1 gm PO BID vitamin B complex 1 tab PO QAM albuterol sulfate 90 mcg/actuation aerosol inhaler 2 puff INH Q4H PRN levothyroxine 175 mcg tablet 175 mcg PO QAM trazodone 50 mg tablet 50 mg PO HS metformin 500 mg tablet 500 mg PO BID trazodone 150 mg tablet 150 mg PO HS fluticasone furoate 200 mcg-vilanterol 25 mcg/dose inhalation powder 1 inh INHALATION QAM lactobacillus combination no.8 1 dose PO QAM ammonium lactate 12 % topical cream 1 applic TOPICAL DAILY PRN cholecalciferol (vitamin D3) 125 mcg (5,000 unit) capsule 5,000 unit PO BID losartan 25 mg tablet 25 mg PO QAM magnesium oxide 400 mg (241.3 mg magnesium) tablet 400 mg PO QAM bupropion HCl 100 mg tablet 200 mg PO BID gabapentin 300 mg PO BID loratadine [Claritin] 10 mg PO QAM pantoprazole [Protonix] 40 mg PO QAM paroxetine HCl [Paxil] 40 mg PO QAM STOP taking 24 hours before surgery ammonium lactate 12 % topical cream 1 applic TOPICAL DAILY PRN DO NOT take the morning of surgery calcium carbonate 600 mg (1,500 mg)-vitamin D3 500 unit capsule 2 cap PO BID multivitamin 1 tab PO QAM ascorbic acid (vitamin C) 1,000 mg tablet 1 gm PO BID vitamin B complex 1 tab PO QAM metformin 500 mg tablet 500 mg PO BID lactobacillus combination no.8 1 dose PO QAM cholecalciferol (vitamin D3) 125 mcg (5,000 unit) capsule 5,000 unit PO BID losartan 25 mg tablet 25 mg PO QAM magnesium oxide 400 mg (241.3 mg magnesium) tablet 400 mg PO QAM loratadine [Claritin] 10 mg PO QAM Take morning of surgery With a small sip of water, OTHERWISE NOTHING TO EAT OR DRINK AFTER MIDNIGHT: albuterol sulfate 2.5 mg INH Q6H PRN (if needed) albuterol sulfate 90 mcg/actuation aerosol inhaler 2 puff INH Q4H PRN (if needed) levothyroxine 175 mcg tablet 175 mcg PO QAM fluticasone furoate 200 mcg-vilanterol 25 mcg/dose inhalation powder 1 inh INHALATION QAM bupropion HCl 100 mg tablet 200 mg PO BID gabapentin 300 mg PO BID pantoprazole [Protonix] 40 mg PO QAM paroxetine HCl [Paxil] 40 mg PO QAM Please bring rescue inhaler with you to hospital day of surgery if possible Take evening before surgery calcium carbonate 600 mg (1,500 mg)-vitamin D3 500 unit capsule 2 cap PO BID albuterol sulfate 2.5 mg INH Q6H PRN (if needed) ascorbic acid (vitamin C) 1,000 mg tablet 1 gm PO BID albuterol sulfate 90 mcg/actuation aerosol inhaler 2 puff INH Q4H PRN (if needed) trazodone 50 mg tablet 50 mg PO HS metformin 500 mg tablet 500 mg PO BID trazodone 150 mg tablet 150 mg PO HS cholecalciferol (vitamin D3) 125 mcg (5,000 unit) capsule 5,000 unit PO BID bupropion HCl 100 mg tablet 200 mg PO BID gabapentin 300 mg PO BID Other Notes If you have any questions please call us at [phone] or [phone] or [phone] or [phone]
--- NOTE | 2021-05-07 08:32 | Anesthesiology Consultation ---
Date of Service May 07, 2021 Assessment & Plan (1) Encounter for pre-operative examination: - COVID screening: Per assessment on 05/07: Travel screen negative, no known COVID-19 positive contacts or current COVID-19 related symptoms. Patient had initial vaccine 04/18 (second vaccine scheduled 05/16- advised patient recommendation to move second COVID date d/t proximity of surgery date). Surgeon arranging preop COVID testing. Awaiting results. - Check BSG AM DOS - S/P Right shoulder RCR (03/23/18): Grade 2 view, MAC#3, ETT 7.0 + PNB at [facility] - Chlorhexidine reaction: Patient had rash, itching, burning with prior chlorhexidine wipes use. No wipes given at PAT visit. Chart Review Chart Review: Acceptable Risk for Surgery (pending surgeon-ordered PCP clearance) and Patient seen in Pre Admission Testing Teaching & Discussion Pre-Anesthesia Teaching/Discussion Notes: Instructed NPO after midnight before surgery,except medications with 15 cc of water. Medication instructions provided according to the PAT guidelines. History Surgery Operation Date: 05/17/21 12:25 Proposed Procedures p RIght Total Shoulder Arthroplasty Reverse - Cleveland Barlow M.D. Height/Weight Height: 5 ft 4.5 in Weight: 125 kg Allergies Allergy/AdvReac Type Severity Reaction Status Date / Time amoxicillin Allergy Intermediate Hives Verified 05/03/21 11:07 cephalexin Allergy Intermediate Hives Verified 05/03/21 11:07 chlorhexidine Allergy Intermediate Rash, Verified 05/03/21 11:07 itching clavulanic acid Allergy Intermediate Hives Verified 05/03/21 11:07 latex Allergy Intermediate Rash Verified 04/30/21 14:44 morphine Allergy Intermediate ?Heart Verified 05/03/21 11:07 racing oxycodone Allergy Intermediate Heart Verified 05/03/21 11:07 racing Sulfa (Sulfonamide Allergy Unknown Unknown Verified 05/03/21 11:07 Antibiotics) Medications Home Medications Medication Instructions Recorded Confirmed Last Taken blood glucose control, normal #1 ea 06/01/19 05/01/21 Unknown blood-glucose meter #1 ea 06/01/19 05/01/21 Unknown calcium carbonate 600 mg (1,500 2 cap PO BID cap 06/01/19 05/01/21 09/13/19 mg)-vitamin D3 500 unit capsule lancets #100 ea 06/01/19 05/01/21 Unknown multivitamin 1 tab PO QAM 06/01/19 05/01/21 09/13/19 nebulizer accessories #1 ea 09/03/19 05/01/21 Unknown nebulizers #1 ea 09/06/19 05/01/21 Unknown albuterol sulfate 2.5 mg INH Q6H PRN #360 ml 01/27/20 05/01/21 Unknown ascorbic acid (vitamin C) 1,000 mg 1 gm PO BID tab 03/01/20 05/01/21 Unknown tablet vitamin B complex 1 tab PO QAM 05/22/20 05/01/21 Unknown albuterol sulfate 90 mcg/actuation 2 puff INH Q4H PRN #18 g 07/25/20 05/01/21 Unknown aerosol inhaler levothyroxine 175 mcg tablet 175 mcg PO QAM #30 tab 08/21/20 05/01/21 Unknown trazodone 50 mg tablet 50 mg PO HS #90 tab 10/27/20 05/01/21 Unknown metformin 500 mg tablet 500 mg PO BID #180 tab 11/15/20 05/01/21 Unknown trazodone 150 mg tablet 150 mg PO HS #90 tab 11/15/20 05/01/21 Unknown blood sugar diagnostic #100 ea 02/16/21 05/01/21 Unknown fluticasone furoate 200 1 inh INHALATION QAM #60 ea 02/19/21 05/01/21 Unknown mcg-vilanterol 25 mcg/dose inhalation powder lactobacillus combination no.8 1 dose PO QAM 02/23/21 05/01/21 Unknown ammonium lactate 12 % topical cream 1 applic TOPICAL DAILY PRN #385 g 03/27/21 05/01/21 Unknown cholecalciferol (vitamin D3) 125 5,000 unit PO BID #60 cap 03/27/21 05/01/21 Unknown mcg (5,000 unit) capsule losartan 25 mg tablet 25 mg PO QAM #90 tab 03/27/21 05/01/21 Unknown magnesium oxide 400 mg (241.3 mg 400 mg PO QAM #90 tab 03/27/21 05/01/21 Unknown magnesium) tablet bupropion HCl 100 mg tablet 200 mg PO BID #360 tab 04/23/21 05/01/21 Unknown gabapentin 300 mg PO BID 04/30/21 05/01/21 Unknown loratadine [Claritin] 10 mg PO QAM 04/30/21 05/01/21 Unknown pantoprazole [Protonix] 40 mg PO QAM 04/30/21 05/01/21 Unknown paroxetine HCl [Paxil] 40 mg PO QAM 04/30/21 05/01/21 Unknown Past Medical History Medical History Acid reflux disease controlled Anxiety Arthritis Asthma stable Bulimia Chronic anemia Depression DM type 2 (diabetes mellitus, type 2) NIDDM Graves disease Graves' ophthalmopathy History of blood transfusion post-op History of varicose veins Hypertension Iron deficiency anemia Morbid obesity Postoperative primary hypothyroidism s/p total thyroidectomy Premature ventricular contractions Venous insufficiency Exercise / Class Metabolic Activity III < 4 Walking/Shop/Light housework Past Family History Family History Mother Diabetes Hypertension Asthma Stroke age 66 Sister , age 44 from [place] Myocardial infarction, Onset Age: 44 Grandmother Stomach cancer Brother Myocardial infarction Other No family history of adverse response to anesthesia Denies family history of Ovarian cancer Prostate cancer Breast cancer Lung cancer Colorectal cancer Past Surgical History Surgical History History of section x2 History of esophagogastroduodenoscopy (EGD) History of hysterectomy History of repair of right rotator cuff Right shoulder RCR (03/23/18): Grade 2 view, MAC#3, ETT 7.0 + PNB at [facility] History of tonsillectomy 1963 History of tooth extraction all teeth History of total left knee replacement (TKR) History of total right knee replacement (TKR) S/P gastroplasty vertical banded gastroplasty S/P hernia repair incisional hernia repair S/P repair of ventral hernia S/P total thyroidectomy secondary to Graves Disease Past Anesthesia History No Hx of Anesthesia Complications and No Family Hx of Anesthesia Complications History of PONV No Hx of PONV and No Hx of Motion Sickness Social History Smoking Status: Former smoker tobacco type: cigarettes Do You Dip or Chew Tobacco: No Smoking End Date: Quit >30 years ago Hx Alcohol Use: No Hx Substance Use: No substance use type: does not use Review of Systems No snoring. Patient denies chest pain, shortness of breath, fever, chills, cough, wheezing, palpitations. Physical Exam Vital Signs VITALS BP 144/81 P 82 TEMP 98.4 SP02 95%RA RESP 18 PHYSICAL Full cervical extension range of motion. Full TMJ range of motion. TMD 3.5 finger breaths (+ loose skin) Mallampati Score 2 Dentition: full upper/lower dentures Lungs: clear throughout to auscultation Cardiac: regular rate and rhythm, no murmurs noted Spine: normal Carotid arteries: negative bruit Extremities: no edema Lab Results Anesthesia Preop Results Results Anesthesia Widget: WBC 6.12 K/uL (4.8-10.8) 05/07/21 Hgb 11.0 g/dL (12.0-16.0) L 05/07/21 Hct 35.2 % (37-47) L 05/07/21 Plt 226 K/uL (130-400) 05/07/21 Na 142 mmol/L (136-145) 05/07/21 K 4.6 mmol/L (3.5-5.1) 05/07/21 Cl 108 mmol/L (98-107) H 05/07/21 CO2 31 mmol/L (21-32) 05/07/21 BUN 11 mg/dl (7-18) 05/07/21 Creat 0.83 mg/dl (0.6-1.2) 05/07/21 Glucose Level 93 mg/dl (70-99) 05/07/21 PT 10.0 Seconds (9.0-12.0) 05/07/21 PTT 25.3 Seconds (21.0-31.0) 05/07/21 INR 1.0 (0.9-1.1) 05/07/21 HA1c 6.1 % (4.5-5.6) H 05/07/21 Urine Color Yellow 05/07/21 Urine Appearance Clear (Clear) 05/07/21 Urine pH 7.0 (4.5-7.5) 05/07/21 Urine Specific [place] 1.009 (1.000-1.030) 05/07/21 Urine Protein Negative (Negative) 05/07/21 Urine Glucose (UA) Negative (Negative) 05/07/21 Urine Ketones Negative (Negative) 05/07/21 Urine Blood Negative (Negative) 05/07/21 Urine Nitrite Negative (Negative) 05/07/21 Urine Bilirubin Negative (Negative) 05/07/21 Urine Urobilinogen Negative (Negative) 05/07/21 Urine Leukocyte Esterase Negative (Negative) 05/07/21 Blood Type O Positive 05/07/21 Antibody Screen NEGATIVE 05/07/21 Testing Electrocardiogram Date: 03/27/21 SR at 68bpm. Chest X-Ray Date: 05/07/21 FINDINGS: The heart is the upper limits of normal in size. There is no failure. There is no focal pulmonary consolidation. There are no pleural effusions.[Postsurgical changes are present within the left upper quadrant. IMPRESSION: No active disease in the chest. Stress Test Date: 04/13/21 Type: DSE Negative DSE for myocardial ischemia at 86% MPHR. No chest pain. No EKG changes. Mild MR. Borderline REGINA. Mild LAD. EF 60.9%. Borderline cLVH.
--- NOTE | 2021-05-16 17:26 | History & Physical Report ---
Date of Service May 16, 2021 Assessment & Plan (1) Nontraumatic complete tear of right rotator cuff: She has a recurrent, large, full-thickness retracted rotator cuff tear with fatty atrophy of the supraspinatus muscle belly. This is an irrepairable tear at this point. Unfortunately, she did not get any significant improvement with the previous steroid injection. She would like to pursue definitive surgical intervention. I advised her that her most reliable treatment option at this point would be a reverse total shoulder arthroplasty to reduce her pain and restore her function. She is in agreement. Risks, benefits, and alternatives of surgery were explained in detail. The surgical procedure, as well as postoperative recovery and rehabilitation, was also explained in detail. Risks include bleeding; infection; damage to surrounding structures such as nerves, blood vessels, and tendons that run in the area; persistent pain or stiffness; hardware failure; dislocation; brachial plexus palsy; blood clots; or need for further surgery. The patient understands all of this and wishes to proceed with surgery. Preoperative workup was completed today, and informed consent was obtained. Present on Admission?: Yes History of Present Illness Chief Complaint: Right shoulder pain and weakness Primary Care Provider: Anastasiya Ruiz DO Ms. Conklin is a 66-year-old female with chronic right shoulder pain and weakness. Is been going on for several years with gradual progressive worsening. She does have a history of rotator cuff repair about 3 years ago. She had a steroid injection in November of this year with minimal improvement in her pain. Allergies Allergy/AdvReac Type Severity Reaction Status Date / Time amoxicillin Allergy Intermediate Hives Verified 05/10/21 16:00 cephalexin Allergy Intermediate Hives Verified 05/10/21 16:00 chlorhexidine Allergy Intermediate Rash, Verified 05/10/21 16:00 itching clavulanic acid Allergy Intermediate Hives Verified 05/10/21 16:00 latex Allergy Intermediate Rash Verified 05/10/21 16:00 morphine Allergy Intermediate ?Heart Verified 05/10/21 16:00 racing oxycodone Allergy Intermediate Heart Verified 05/10/21 16:00 racing Sulfa (Sulfonamide Allergy Unknown Unknown Verified 05/10/21 16:00 Antibiotics) Home Medications Medication Instructions Recorded Confirmed Type blood glucose control, normal #1 ea 06/01/19 05/10/21 History blood-glucose meter #1 ea 06/01/19 05/10/21 History calcium carbonate 600 mg (1,500 2 cap PO BID cap 06/01/19 05/10/21 History mg)-vitamin D3 500 unit capsule lancets #100 ea 06/01/19 05/10/21 Rx multivitamin 1 tab PO QAM 06/01/19 05/10/21 History nebulizer accessories #1 ea 09/03/19 05/10/21 Rx nebulizers #1 ea 09/06/19 05/10/21 Rx albuterol sulfate 2.5 mg INH Q6H PRN #360 ml 01/27/20 05/10/21 Rx ascorbic acid (vitamin C) 1,000 mg 1 gm PO BID tab 03/01/20 05/10/21 History tablet vitamin B complex 1 tab PO QAM 05/22/20 05/10/21 History albuterol sulfate 90 mcg/actuation 2 puff INH Q4H PRN #18 g 07/25/20 05/10/21 Rx aerosol inhaler levothyroxine 175 mcg tablet 175 mcg PO QAM #30 tab 08/21/20 05/10/21 Rx trazodone 50 mg tablet 50 mg PO HS #90 tab 10/27/20 05/10/21 Rx metformin 500 mg tablet 500 mg PO BID #180 tab 11/15/20 05/10/21 Rx trazodone 150 mg tablet 150 mg PO HS #90 tab 11/15/20 05/10/21 Rx blood sugar diagnostic #100 ea 02/16/21 05/10/21 Rx fluticasone furoate 200 1 inh INHALATION QAM #60 ea 02/19/21 05/10/21 Rx mcg-vilanterol 25 mcg/dose inhalation powder lactobacillus combination no.8 1 dose PO QAM 02/23/21 05/10/21 History ammonium lactate 12 % topical cream 1 applic TOPICAL DAILY PRN #385 g 03/27/21 05/10/21 Rx cholecalciferol (vitamin D3) 125 5,000 unit PO BID #60 cap 03/27/21 05/10/21 Rx mcg (5,000 unit) capsule losartan 25 mg tablet 25 mg PO QAM #90 tab 03/27/21 05/10/21 Rx bupropion HCl 100 mg tablet 200 mg PO BID #360 tab 04/23/21 05/10/21 Rx gabapentin 300 mg PO BID 04/30/21 05/10/21 History loratadine [Claritin] 10 mg PO QAM 04/30/21 05/10/21 History pantoprazole [Protonix] 40 mg PO QAM 04/30/21 05/10/21 History paroxetine HCl [Paxil] 40 mg PO QAM 04/30/21 05/10/21 History doxycycline hyclate 100 mg tablet 100 mg PO BID 7 Days #14 tab 05/10/21 05/10/21 Rx melatonin PO PRN 05/10/21 05/10/21 History magnesium oxide 400 mg (241.3 mg 400 mg PO QAM #90 tab 05/14/21 Rx magnesium) tablet Past Med/Surg History Medical History Acid reflux disease Anxiety Arthritis Asthma Bulimia Chronic anemia Depression DM type 2 (diabetes mellitus, type 2) Graves disease Graves' ophthalmopathy History of blood transfusion History of varicose veins Hypertension Iron deficiency anemia Morbid obesity Postoperative primary hypothyroidism Premature ventricular contractions Venous insufficiency Surgical History History of section History of esophagogastroduodenoscopy (EGD) History of hysterectomy History of repair of right rotator cuff History of tonsillectomy History of tooth extraction History of total left knee replacement (TKR) History of total right knee replacement (TKR) S/P gastroplasty S/P hernia repair S/P repair of ventral hernia S/P total thyroidectomy Family History Mother Diabetes Hypertension Asthma Stroke Sister Myocardial infarction, Onset Age: 44 Grandmother Stomach cancer Brother Myocardial infarction Other No family history of adverse response to anesthesia Denies family history of Ovarian cancer Prostate cancer Breast cancer Lung cancer Colorectal cancer Social History Smoking Status: Former smoker Tobacco Type: Cigarettes Age Started Using Tobacco: 19; Age Quit Using Tobacco: 30; Years Smoked: 12; Number of Years Since Quit: 31; Second Hand Exposure: No; Hx Alcohol Use: No Hx Substance Use: No Preferred Language: [place] Communication Ability: Effective Visual Impairment: No Limitations Hearing Ability: Normal Prom Burn Off Operator Required: No Beliefs That Will Affect Care: None marital status: Current Living Situation: Spouse current occupational status: retired and disabled 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 Rotator cuff strength is globally weak. Results & Data ([facility]) Diagnostic Findings MRI of the right shoulder from March 2021 was reviewed. It shows a recurrent full-thickness rotator cuff tear with retraction to the glenoid rim. It is a large tear involving the entirety of the supraspinatus and anterior border of the infraspinatus. She has greater than 50% fatty atrophy of the supraspinatus muscle belly.
[~2021-05-17 08:00] MED LIST changes: +ACETAMINOPHEN 500 MG TAB PO SCH; -ALBUT/IPRATROP 3MG/0.5MG NEB 3 ML VIAL INH ONE; -ANCEF~ALLERGY NOTED TO ORDERED MEDICATION SCH; -ASCO10003 PO; -ATROPINE SULFATE 0.1 MG/ML 5ML SYR IV PRN; +BUPIVACAINE 0.5 % 5 MG/1 ML PF 10ML VIAL ONE; -BUPR-83 PO; -CEFAZOLIN 3000MG IV PUSH 22.5 ML IV SCH; -CHOL2000 PO; -EpHEDrine SULFATE INJ 50 MG/ML AMP IV PRN; -EpHEDrine SULFATE INJ 50 MG/ML AMP ONE; -EpINEphrine HCL INJ 1 MG/ML 1ML SYRINGE ONE; +FAMOTIDINE 20 MG TAB PO SCH; -FENTANYL CITRATE INJ 50 MCG/1 ML 2 ML VIAL ONE; -FLUT1INH INH; +GABAPENTIN 300 MG CAP PO SCH; -GLYCOPYRROLATE INJ 0.2 MG/ML VIAL ONE; -HYDR-5688 PO; -HYDROCODONE/ACETAMIN 5/325MG TAB PO PRN; -HYDROmorphone INJ 0.5 MG/0.5 ML SYR IV PRN; -HYDROmorphone INJ 0.5 MG/0.5 ML SYR ONE; -HYDROmorphone INJ 2 MG/ML SYR/VIAL IV PRN; -LACTATED RINGER'S 1000ML 1,000 ML IV SCH; -LEVO150T9 PO; -LIDOCAINE HCL 2% 2 ML VIAL (20MG/ML) ONE; -LOSA25TA18 PO; +LR 15ML/HR IV SCH; -MAGN400T6 PO; +METOCLOPRAMIDE HCL 10 MG TABLET PO SCH; -MIDAZOLAM HCL 1 MG/ML 2ML VIAL ONE; -MULT-1016 PO; -NEOSTIGMINE METHYLSULFATE 5 MG/5 ML SYR ONE; -NURSING VERBAL MED ORDER ONE; -NURSING VERBAL MED ORDER STA; -ONDANSETRON INJ 2 MG/ML 2 ML VIAL IV PRN; -ONDANSETRON INJ 2 MG/ML 2 ML VIAL ONE; -PANT40TA2 PO; -PARO1TAB29 PO; -PHENYLEPHRINE 100MCG/ML 5ML SYR IV PRN; -PROPOFOL IV EMULSION 10 MG/ML 20 ML VIAL ONE; -ROCURONIUM BROMIDE 10 MG/ML 5 ML VIAL ONE; -ROPIVACAINE 0.5% 5 MG/ML 30 ML VIAL ONE; -SUCCINYLCHOLINE 100MG/5ML SYR IV ONE; +TRANEXAMIC ACID 1,000 MG **IV Pre-op IV SCH; -TRAZ100T29 PO; +VANCOMYCIN HCL 2,000 MG in SODIUM CHLORIDE 0.9% 500 ML IV SCH; -VNTHFA/IN INH; +dexAMETHasone 4 MG TAB PO SCH
--- NOTE | 2021-05-17 08:51 | History & Physical Bridge Note ---
Date of Service May 17, 2021 History & Physical Bridge Note I have examined the patient, reviewed the History & Physical and in the interval since the performance of the History & Physical I have noted the following changes of clinical significance: no changes noted
[2021-05-17] MEDS ORDERED: fentaNYL citrate 100 MCG/2 ML VIAL IV PRN (10:24)
[2021-05-17] MEDS ORDERED: ONDANSETRON INJ 2 MG/ML 2 ML VIAL IV PRN ×2 (10:24→15:30)
[2021-05-17] MEDS ORDERED: ePHEDrine sulfate 50 MG/ML AMP IV PRN (10:24)
[2021-05-17] MEDS ORDERED: HYDROmorphone INJ 2 MG/ML SYR/VIAL IV PRN (10:24)
[2021-05-17] MEDS ORDERED: ATROPINE SULFATE 0.1 MG/ML 10ML SYR IV PRN (10:24)
[2021-05-17] MEDS ORDERED: MIDAZOLAM HCL 1 MG/ML 2ML VIAL ONE (10:31)
[2021-05-17] MEDS ORDERED: fentaNYL citrate 100 MCG/2 ML VIAL ONE (10:32)
[2021-05-17] MEDS ORDERED: NEOSTIGMINE METHYLSULFATE 1 MG/ML 10ML VIAL ONE (12:05)
[2021-05-17] MEDS ORDERED: LIDOCAINE 2% 2 ML VIAL/AMP(20MG/ML) INFIL ONE (12:05)
[2021-05-17] MEDS ORDERED: PHENYLEPHRINE 100MCG/ML 5ML SYR ONE (12:05)
[2021-05-17] MEDS ORDERED: ONDANSETRON INJ 2 MG/ML 2 ML VIAL ONE (12:05)
[2021-05-17] MEDS ORDERED: ePHEDrine sulfate 50 MG/ML SYR ONE (12:05)
[2021-05-17] MEDS ORDERED: GLYCOPYRROLATE 0.2 MG/ML VIAL ONE (12:05)
[2021-05-17] MEDS ORDERED: ROCURONIUM BROMIDE 10 MG/ML 5 ML VIAL IV ONE (12:05)
[2021-05-17] MEDS ORDERED: LARYING-O-JET KIT (LTA) ONE (12:05)
[2021-05-17] MEDS ORDERED: PROPOFOL IV EMULSION 10 MG/ML 20 ML VIAL IV ONE (12:05)
[2021-05-17] MEDS ORDERED: ePHEDrine sulfate 50 MG/ML AMP ONE (12:09)
--- NOTE | 2021-05-17 13:11 | Post Operative Brief Note ---
Immediate Post Op Note v1 Date of Surgery May 17, 2021 Pre & Post Diagnosis Operation Date: 05/17/21 10:45 Pre-Op Diagnosis: Right shoulder recurrent massive rotator cuff tear Post-Op Diagnosis: Right shoulder recurrent massive rotator cuff tear I identified the patient and participated in the time-out.: Yes Procedure Operation Date: 05/17/21 10:45 Actual Procedures Right Reverse Total Shoulder Arthroplasty with biceps tenodesis - Cleveland Barlow M.D. Surgeon Cleveland Barlow Private Secretary Isak Pantoja PA-C Estimated Blood Loss 75 Findings Consistent with Post-Op Diagnosis
--- NOTE | 2021-05-17 13:11 | Operative Report ---
Post Operative Report Pre & Post Diagnosis Operation Date: 05/17/21 10:45 Pre-Op Diagnosis: Right shoulder recurrent massive rotator cuff tear Post-Op Diagnosis: Right shoulder recurrent massive rotator cuff tear I identified the patient and participated in the time-out.: Yes Procedure Operation Date: 05/17/21 10:45 Actual Procedures Right reverse Total Shoulder Arthroplasty (50473) Open biceps tenodesis (29783) - Cleveland Barlow M.D. Surgeon Cleveland Barlow Dough Molder Isak Pantoja PA-C Estimated Blood Loss 75 Findings Consistent with Post-Op Diagnosis Specimens None Drains None Anesthesia Type General Regional Complications none Disposition Disposition: Recovery Room Indications Ms. Conklin is a 66-year-old female with recurrent severe pain and weakness in her right shoulder. History, clinical exam, and imaging were consistent with the above diagnosis. Risks, benefits, and alternatives of surgery were explained in detail. The patient understood all this and wished to proceed. Description of Procedure Components Implanted: Tornier Reverse Total Shoulder implants Perform glenoid baseplate: 25mm, 15 degree full wedge with 6.5mm central screw and 5.0mm peripheral screws Glenosphere: 36mm standard Ascend Flex humeral stem: 5B Standard length (82mm) Humeral tray: 3.5mm offset, +0mm thickness Polyethylene insert: 36mm, +6mm thickness Patient was identified in the preoperative holding area. Operative extremity was marked. Regional blockade was given by the Anesthesia Staff. Patient was then brought back to the operating room, and general anesthesia was induced without complication. Appropriate weight-based dose of Ancef was infused intravenously for antibiotic prophylaxis. The patient was then placed in the beachchair position. Right arm was then prepped and draped in a standard sterile fashion using Chlorhexidine prep. A standard deltopectoral incision was made through the skin and subcutaneous tissue. The cephalic vein was identified and retracted medially. Small branches to the deltoid were coagulated as necessary. The clavipectoral fascia was then incised and the subdeltoid space was opened. The rotator cuff was found to be deficient, and I therefore decided to perform a reverse total shoulder arthroplasty as planned preoperatively. The biceps tendon was identified within the bicipital groove and tenodesed at the superior border of the pectoralis tendon with #2 FiberWire suture. The biceps tendon was then divided proximal to the tenodesis site and the rotator interval was opened. The proximal portion of the biceps tendon was excised. The remaining subscapularis tendon was elevated subperiosteally off of the lesser tuberosity. The glenohumeral joint was then dislocated, and large osteophytes were debrided with a ronguer. The humeral head cut was then made in the appropriate inclination and version using the cutting guide. The intramedullary canal of the humerus was then opened with a canal finder. The humeral canal was then sequentially broached to the appropriate size. A protective cap was then placed on top of the humeral trial. I then turned my attention to the glenoid. The proximal stump of the biceps tendon was excised, along with the labrum circumferentially around the glenoid. The Blueprint drill guide was then positioned on the glenoid, and the guidepin was then inserted. The 15 degree angled reamer was then inserted over the guidepin and an reamed to an appropriate depth. The central screw hole was drilled, and appropriate length 6.5mm central screw was selected. The baseplate was then implanted into place according to our preoperative Blueprint plan by tightening down the central screw. A peripheral 5mm nonlocking screw was placed postero-superiorly first for additional compression of the baseplate, and then additional locking 5 mm peripheral screws were placed to complete fixation of the baseplate. Glenosphere was then impacted and secured. A trial humeral tray and insert were placed on the trial humeral stem, and a trial reduction was carried out. Once I achieved acceptable joint stability and range of motion with the trial implants, the final humeral implants were assembled on the back table and then impacted into position. I then took the shoulder through full range of motion to ensure good stability and acceptable motion. Wound was then copiously irrigated with sterile saline. Deep fascia was closed with 0 V-lock suture. Subcutaneous tissue was closed with 2-0 V-lock, and skin was closed with 3-0 V-lock. Skin was then sealed with Dermabond. Sterile dressings were then applied with a waterproof silver-impregnated dressing, and the arm was placed into a sling. The patient was awakened from anesthesia and taken to the Post Anesthesia Care Unit in stable condition. There were no immediate complications from the procedure. I was present and scrubbed for the entire procedure, with the exception of final skin closure and dressing application. Due to the complex nature of the procedure, the entire surgery was performed with the operational assistance of Isak Pantoja PA-C. The account management assistant, under direct supervision, was involved in the performance of all aspects of the surgical procedure including patient positioning, tissue retraction, hemostasis, wound closure, and dressing application. I attest to the content of the Intraoperative Record and any orders documented therein. Any exceptions are noted below.
--- NOTE | 2021-05-17 14:31 | Anesthesiology Progress Note ---
Date of Service May 17, 2021 Anesthesia Post Procedure Vital Signs Vital Signs: Temp Pulse Pulse Resp BP BP Pulse Ox 05/17/21 14:20 71 15 177/84 H 97 05/17/21 14:10 36.4 C L 71 13 169/80 H 95 05/17/21 14:00 71 18 166/80 H 94 05/17/21 13:50 65 18 178/81 H 97 05/17/21 13:40 65 20 172/90 H 96 05/17/21 13:30 70 18 188/95 H 98 05/17/21 13:26 36.7 C 72 16 204/82 H 98 05/17/21 08:36 36.9 C 66 18 159/69 H 97 Pain Intensity Right Shoulder: Pain Intensity: 0 Transfer of Care Handoff Completed per policy Notes Mental Status: alert / awake / arousable and participated in evaluation Patient Amnestic to Procedure: Yes Nausea / Vomiting: adequately controlled Pain: adequately controlled Airway Patency, RR, SpO2: stable & adequate BP & HR: stable & adequate Hydration State: stable & adequate Anesthetic Complications: no major complications apparent
--- NOTE | 2021-05-17 15:04 | XRay Report ---
XR shoulder RT min 2V routine CLINICAL HISTORY: Post shoulder surgery COMPARISON STUDY: None. FINDINGS: Status post reverse right total shoulder arthroplasty. The hardware appears intact. No frac ture or dislocation. Right lung linear densities favor subsegmental atelectasis IMPRESSION: Status post reverse right total shoulder arthroplasty. No evidence for hardware complica tion. ACT 112: Negative or not required by law. Electronically signed by: Sean Mitchell M.D. 05/17/2021 3:02 PM
[2021-05-17] MEDS ORDERED: bisacodyL 10 MG SUPP PR PRN (15:30)
[2021-05-17] MEDS ORDERED: VANCOMYCIN HCL 1,750 MG in SODIUM CHLORIDE 0.9% 250 ML IV SCH (15:30)
[2021-05-17] MEDS ORDERED: VANCOMYCIN CONSULT ACTIVE PRN (15:30)
[2021-05-17] MEDS ORDERED: ALBUTEROL 0.083% NEBU SOLN 3 ML VIAL INH PRN (15:30)
[2021-05-17] MEDS ORDERED: NALOXONE HCL 0.4 MG/1 ML VIAL/CARP IV PRN (15:30)
[2021-05-17] MEDS ORDERED: METOCLOPRAMIDE HCL INJ 5 MG/ML 2 ML VIAL IV PRN (15:30)
[2021-05-17] MEDS ORDERED: SODIUM CHLORIDE 0.9% 1000ML 1,000 ML IV SCH (15:30)
[2021-05-17] MEDS ORDERED: MAGNESIUM HYDROXIDE SUSP 30 ML UDC PO PRN (15:30)
[2021-05-17] MEDS ORDERED: ALBUTEROL HFA 8 GM INHALER INH PRN (15:30)
[2021-05-17] MEDS ORDERED: PHARMACY GLYCEMIC MGMT CONSULT PRN (15:55)
[2021-05-17] MEDS ORDERED: GLUCAGON FOR INJ 1 MG VIAL IM PRN (16:15)
[2021-05-17] MEDS ORDERED: GLUCOSE 10 TABS/TUBE PO PRN (16:15)
[2021-05-17] MEDS ORDERED: DEXTROSE 50% 50 ML SYRINGE IV PRN (16:15)
[2021-05-17] MEDS ORDERED: CARBOHYDRATES FOR HYPOGLYCEMIA PO PRN (16:15)
[2021-05-17] MEDS ORDERED: GLUCOSE 40% GEL 15 GM TUBE PO PRN (16:15)
[2021-05-17] MEDS: traMADol HCL 50 MG TABLET PO PRN ×2 (16:19→21:24)
[2021-05-17] MEDS: ACETAMINOPHEN 500 MG TAB PO SCH (16:20)
--- NOTE | 2021-05-17 16:26 | Pharmacy Report ---
Pharmacy Glycemic Short Note 2 - Date of Service May 17, 2021 - Glycemic Short BSG Results (Last 24 hours): 05/17/21 05/17/21 08:28 13:27 POC Glucose 114 H 137 H OUTPATIENT ANTIDIABETIC REGIMEN: * metformin * A1c 6.1% ASSESSMENT: * Patient s/p shoulder surgery. Type 2 diabetic managed only on metformin at home. Received PO dexamethasone preop, therefore anticipate steroid induced hyperglycemia. Postop BSG 137 mg/dl * Plan to utilize correctional insulin, may start NPH with dinner if BSGs trending upward PLAN FOR INPATIENT GLYCEMIC CONTROL: * Hold outpatient oral diabetes medications * Basal insulin * NPH 0-15 units at dinner - to help with steroid coverage * Bolus insulin * NovoLog per scale ACHS or Q6hrs while NPO * Goal Range: Low 110 mg/dL - High 140 mg/dL * Correction Factor: 20 mg/dL/unit * Nutritional / Prandial insulin per carb ratio of 1 unit per 7 grams CHO consumed PLAN FOR DISCHARGE: * A1c 6.1% indicates good glycemic control. Reasonable to continue home metformin on discharge as long as no contraindications present.
--- NOTE | 2021-05-17 17:11 | Orthopedic Progress Note ---
Date of Service May 17, 2021 Assessment & Plan (1) Nontraumatic complete tear of right rotator cuff: Postoperative day #0 status post right reverse total shoulder arthroplasty -No resisted elbow flexion or resisted forearm supination, but active range of motion of the shoulder is okay. -Antibiotics x24 hours -Plan for discharge home tomorrow. Admission and Anticipated Discharge Date Admission Date: May 17, 2021 Subjective Postop check Patient is resting comfortably. She denies any significant pain in her right shoulder. Physical Exam Physical Exam: Right shoulder dressings are clean, dry, and intact. Results & Data ([facility]) Vital Signs (Past 12 Hours) Vital Signs Temp Pulse Pulse Resp BP BP Pulse Ox 05/17/21 16:20 36.5 C 77 16 145/84 H 96 05/17/21 15:50 36.5 C 76 18 143/83 H 95 05/17/21 15:20 36.5 C 75 16 170/69 H 95 05/17/21 15:00 74 16 157/84 H 96 05/17/21 14:50 73 16 158/79 H 96 05/17/21 14:35 70 16 160/81 H 96 05/17/21 14:20 71 15 177/84 H 97 05/17/21 14:10 36.4 C L 71 13 169/80 H 95 05/17/21 14:00 71 18 166/80 H 94 05/17/21 13:50 65 18 178/81 H 97 05/17/21 13:40 65 20 172/90 H 96 05/17/21 13:30 70 18 188/95 H 98 05/17/21 13:26 36.7 C 72 16 204/82 H 98 05/17/21 08:36 36.9 C 66 18 159/69 H 97 Diagnostic Findings Postoperative right shoulder x-rays were reviewed. They show reverse total shoulder arthroplasty components in good position.
[2021-05-17] MEDS ORDERED: ACETAMINOPHEN 500 MG TAB PO SCH (18:00)
[2021-05-17] MEDS ORDERED: NovoLIN-N (NPH) PER UNIT CHARGE SQ SCH (18:00)
[2021-05-17] MEDS: IBUPROFEN 600 MG TAB PO SCH (18:22)
[2021-05-17] MEDS: INSULIN ASPART 100 UNITS/ML 3 ML PEN SC SCH ×2 (18:41→21:32)
[2021-05-17] MEDS ORDERED: traZODone HCL 50 MG TAB PO SCH ×2 (21:00)
[2021-05-17] MEDS ORDERED: SENNA 8.6 MG TAB PO SCH (21:00)
[2021-05-17] MEDS ORDERED: VANCOMYCIN HCL 1,750 MG in SODIUM CHLORIDE 0.9% 500 ML IV ONE (21:00)
[2021-05-17] MEDS: ASCORBIC ACID 500 MG TAB PO SCH (21:15)
[2021-05-17] MEDS: DOCUSATE SODIUM 100 MG CAP PO SCH (21:15)
[2021-05-17] MEDS: buPROPion HCl 100 MG TABLET PO SCH (21:16)
[2021-05-17] MEDS: GABAPENTIN 300 MG CAP PO SCH (21:16)
[2021-05-17] MEDS: CHOLECALCIFEROL 1,000 UNITS 25 MCG TAB PO SCH (21:16)
[2021-05-17] MEDS ORDERED: COUGH DROP (SUGAR FREE) LOZ 24 LOZ/1 BOX BUCCAL ONE (21:23)
[2021-05-18] MEDS: ACETAMINOPHEN 500 MG TAB PO SCH ×2 (00:30→09:43)
[2021-05-18] MEDS: IBUPROFEN 600 MG TAB PO SCH ×2 (00:30→09:47)
[2021-05-18] MEDS: traMADol HCL 50 MG TABLET PO PRN ×2 (05:43→10:50)
[2021-05-18] MEDS ORDERED: LEVOTHYROXINE SODIUM 175 MCG TABLET PO SCH (06:30)
--- NOTE | 2021-05-18 08:20 | Orthopedic Progress Note ---
Date of Service May 18, 2021 Assessment & Plan (1) Status post reverse total replacement of right shoulder: Admission and Anticipated Discharge Date Admission Date: May 17, 2021 66 yo female stable POD #1 s/p right shoulder reverse TSA 1. Med management 2. DVT prophylaxis- ASA, SCDs 3. PT/OT 4. D/C planning- home w/ OPPT Subjective Pt resting in chair, pain controlled, denies complaints Physical Exam Physical Exam: Silverlon dressing in place, fingers mobile, NVI Results & Data ([facility]) Vital Signs (Past 12 Hours) Vital Signs Temp Pulse Resp BP Pulse Ox 05/18/21 07:51 36.5 C 82 16 128/71 90 05/18/21 02:23 36.7 C 79 20 125/62 93 05/17/21 21:50 36.6 C 78 16 127/62 93
[2021-05-18 08:28] LABS: Basophils # (auto) 0.01 K/uL (0-0.2); Basophils % (auto) 0.1 %; Eosinophils # (auto) 0.01 K/uL (0-0.5); Eosinophils % (auto) 0.1 %; Hemoglobin 10.4 g/dL (12.0-16.0); Immature Granulocytes # (auto) 0.01 K/uL (0.00-0.02); Immature Granulocytes % (auto) 0.1 %; Lymphocytes # (auto) 1.06 K/uL (1.2-3.4); Lymphocytes % (auto) 12.2 %; Mean Corpuscular Hemoglobin 28.1 pg (25-34); Mean Corpuscular Hgb Conc 31.5 g/dL (32-36); Mean Corpuscular Volume 89.2 fL (80-100); Monocytes # (auto) 1.13 K/uL (0.11-0.59); Neutrophils % (auto) 74.5 %; Platelet Count 214 K/uL (130-400); RDW Coefficient of Variation 14.5 % (11.5-14.5); RDW Standard Deviation 47.3 fL (36.4-46.3); White Blood Count 8.72 K/uL (4.8-10.8)
[2021-05-18] MEDS ORDERED: PANTOprazole 40 MG TAB PO SCH (09:00)
[2021-05-18] MEDS ORDERED: MULTIVITAMIN TAB PO SCH ×2 (09:00)
[2021-05-18] MEDS ORDERED: FLUTICASONE/VILANTEROL 200/25MCG 14 PUFFS/INHALER INH SCH (09:00)
[2021-05-18] MEDS ORDERED: ADVANCED PROBIOTIC 1250 MG CAPSULE PO SCH (09:00)
[2021-05-18] MEDS ORDERED: PARoxetine HCL 20 MG TAB PO SCH (09:00)
[2021-05-18] MEDS ORDERED: MAGNESIUM OXIDE 400 MG TAB PO SCH (09:00)
[2021-05-18] MEDS ORDERED: LOSARTAN POTASSIUM 25 MG TAB PO SCH (09:00)
[2021-05-18] MEDS ORDERED: ASPIRIN 325 MG ECTAB PO SCH (09:00)
[2021-05-18] MEDS ORDERED: VITAMIN B COMPLEX TAB PO SCH (09:00)
[2021-05-18] MEDS ORDERED: LORATADINE 10 MG TAB PO SCH (09:00)
[2021-05-18 09:11] LABS: BUN Creatinine Ratio 18.5 (10-20); Creatinine Clr Calc Pharmacy 94.7 ml/min; Est GFR (African American) 95.4 ml/min; Est GFR (Non-African American) 82.3 ml/min; Potassium 4.4 mmol/L (3.5-5.1)
[2021-05-18] MEDS: buPROPion HCl 100 MG TABLET PO SCH (09:43)
[2021-05-18] MEDS: DOCUSATE SODIUM 100 MG CAP PO SCH (09:44)
[2021-05-18] MEDS: CHOLECALCIFEROL 1,000 UNITS 25 MCG TAB PO SCH (09:44)
[2021-05-18] MEDS: ASCORBIC ACID 500 MG TAB PO SCH (09:44)
[2021-05-18] MEDS: GABAPENTIN 300 MG CAP PO SCH (09:46)
[2021-05-18] MEDS: INSULIN ASPART 100 UNITS/ML 3 ML PEN SC SCH (09:50)
--- NOTE | 2021-05-21 12:36 | Discharge Summary ---
Date of Service May 21, 2021 Admission HPI Per Admitting Provider Ms. Conklin is a 66-year-old female with chronic right shoulder pain and weakness. Is been going on for several years with gradual progressive worsening. She does have a history of rotator cuff repair about 3 years ago. She had a steroid injection in November of this year with minimal improvement in her pain. Principal Diagnosis Right recurrent rotator cuff tear Discharge Data Allergies Allergy/AdvReac Type Severity Reaction Status Date / Time amoxicillin Allergy Intermediate Hives Verified 05/17/21 08:26 cephalexin Allergy Intermediate Hives Verified 05/17/21 08:26 chlorhexidine Allergy Intermediate Rash, Verified 05/17/21 08:26 itching clavulanic acid Allergy Intermediate Hives Verified 05/17/21 08:26 latex Allergy Intermediate Rash Verified 05/17/21 08:26 morphine Allergy Intermediate ?Heart Verified 05/17/21 08:26 racing oxycodone Allergy Intermediate Heart Verified 05/17/21 08:26 racing Sulfa (Sulfonamide Allergy Unknown Unknown Verified 05/17/21 08:26 Antibiotics) Procedures Performed Operation Date: 05/17/21 10:45 Actual Procedures p Right Reverse Total Shoulder Arthroplasty(Right) - Cleveland Barlow M.D. Ordered Studies 05/17/21 05:00 US - OR guided needle placemen Routine Hospital Course (1) Status post reverse total replacement of right shoulder: Patient underwent a right reverse total shoulder arthroplasty, and was admitted under the orthopedic surgery service postoperatively. Patient tolerated the procedure well and was transferred up to the orthopedic surgery floor in stable condition. Perioperative antibiotic coverage was initiated for 24 hours. DVT prophylaxis consisting of aspirin 325 mg daily was started the morning after surgery. On postoperative day 1, pain was well controlled with oral medications only. Patient was ambulating without assistance, tolerating a regular diet, and was therefore determined to be safe and ready for discharge to home. Total Time Total Time Spent Total Time Spent (In Minutes): 15 Discharge Plan Discharge Items Patient Disposition: Home - Self-Care Reason For Visit: Right shoulder massive recurrent rotator cuff tear Discharge Diagnosis: Right shoulder massive recurrent rotator cuff tear Activity: Per Instructions section Non-emergency contact: Surgeon Call non-emergency contact if: your pain is not controlled, your temperature is above 101.5, your wound has increased redness and your wound has increased drainage Follow-up/Referrals: Anastasiya Ruiz DO [Primary Care Provider] - Cleveland Barlow M.D. [Physician] - Diet: Carb Consistent or DM2 Addtl Attending Provider Instructions: Things to Watch Out For -Go to the Emergency Room if you have sudden onset of nausea, vomiting, chest pain, shortness of breath, or uncontrollable pain. -Call the clinic or go to the Emergency Room if you have a sudden increase in the amount of wound drainage or the drainage becomes thick, yellow or green, or foul-smelling. -For routine questions, call the clinic at [phone] during regular business hours (8am-5pm). For urgent issues after regular business hours, you may call the clinic to be connected to the on-call physician. Dressings -A special waterproof, silver-impregnated dressing was placed on your shoulder. Keep this dressing in place for 1 week after surgery. You may shower with the waterproof dressing in place, but do not soak the dressing in the bathtub or pool. -One week after surgery, you may remove the waterproof dressing. You may continue to shower, and let water run BRIEFLY over the incision, but do not soak the incision in the bathtub or pool for 2 weeks. You may also gently clean the incision with mild soap and water; pat the incision dry after cleaning-do not rub the incision. Apply a new dressing daily thereafter. Shoulder Exercises -Keep your operative shoulder in the sling for comfort, except as detailed below. -You should come out of the sling 4-5 times a day for passive pendulum exercises: lean over and swing your arm in a circular pattern. -You should also do active-assisted forward flexion exercises: use your opposite hand to lift your operative arm forward to 90 degrees. -Do not flex your elbow (curl motion) or supinate your forearm (rotating palm up) against resistance. -Do not use your arm to push yourself up out of bed or up from a seated position. Ice Pack -You may use an ice pack for pain relief. You should use it 20-30 minutes at a time. Place a towel between the ice pack and your skin to prevent frostbite. -You should use the ice pack fairly regularly for the first 1-2 weeks after surgery to help reduce pain and inflammation. -About 2 weeks after your surgery, you should start using heat to loosen up your shoulder prior to doing your stretching exercises, then use the cooling sleeve after your exercises are complete to reduce swelling and pain. Pain Medicines -Your prescriptions for pain medications have already been sent to the pharmacy on file at [facility]. -You have been prescribed an anti-inflammatory (Motrin/ibuprofen) and a non- narcotic pain medicine (Tylenol/acetaminophen). These are your primary pain med ications. Take them each every 6 hours as instructed. It is recommended that you stagger these medicines every 3 hours (i.e. take ibuprofen at 8:00 am, then acetaminophen at 11:00 am, then ibuprofen at 2:00 pm, etc) -DO NOT take any additional anti-inflammatories (Advil, Aleve/naproxen, Mobic/meloxicam, Celebrex) or any additional Tylenol/acetaminophen products with these prescribed medications. -You have also been prescribed an additional narcotic pain medication (oxycodone). Take this medicine ONLY for breakthrough pain not controlled by the ibuprofen and acetaminophen. -Do not drive or operate heavy machinery while taking the narcotic medication. -Common side effects of narcotic pain medicines include itching, nausea, constipation, and feeling "loopy". However, if you develop a rash or hives, stop taking the medicine and call the clinic. If you develop swelling in your throat or difficulty breathing, go to the Emergency Room or call 911 IMMEDIATELY. -You may take over the counter stool softeners if needed for constipation. Aspirin -Take a full strength (325mg) aspirin every day for 4 weeks (28 days) to prevent blood clots. -If you were taking a baby aspirin (81mg) prior to surgery, you may resume taking this 81mg dose after you complete the 28-day course of the 325mg strength dose; do not take the 325mg dose in addition to your 81mg dose. -Be aware that you will bruise easier while taking Aspirin; this is normal. However, if you develop a significantly large area of swelling after an injury, or have a cut that will not stop bleeding, call the clinic or go to the Emergen cy Room immediately. Pending Studies at Discharge: No Stand-Alone Forms: My [facility] Medications and ME Order Prescriptions: Continued (DME) nebulizer accessories kit See Dose Instructions .ROUTE .MEDSUPPLY Qty: 1 RF: 0 (DME) nebulizers [facility] [place] See Dose Instructions .ROUTE .MEDSUPPLY Qty: 1 RF: 0 albuterol sulfate 2.5 mg /3 mL (0.083 %) solution for nebulization 2.5 mg INH Q6H PRN (Reason: shortness of breath or wheezing) Qty: 360 RF: 5 albuterol sulfate [Ventolin HFA] 90 mcg/actuation HFA aerosol inhaler 2 puff INH Q4H PRN (Reason: shortness of breath or wheezing) Qty: 18 RF: 2 levothyroxine 175 mcg tablet 175 mcg PO QAM Qty: 30 RF: 5 trazodone 50 mg tablet 50 mg PO HS Qty: 90 RF: 2 metformin 500 mg tablet 500 mg PO BID Qty: 180 RF: 1 trazodone 150 mg tablet 150 mg PO HS Qty: 90 RF: 1 Breo Ellipta 200-25 mcg/dose blister with device 1 inh inhalation QAM Qty: 60 RF: 5 bupropion HCl 100 mg tablet 200 mg PO BID Qty: 360 RF: 1 magnesium oxide 400 mg (241.3 mg magnesium) tablet 400 mg PO QAM Qty: 90 RF: 1 (DME) OneTouch Ultra Blue Test Strip Strip See Dose Instructions .ROUTE .MEDSUPPLY Qty: 100 RF: 11 calcium carbonate-vitamin D3 600 mg(1,500mg) -500 unit capsule 2 cap PO BID PRN (Reason: Indigestion) RF: 0 multivitamin tablet 1 tab PO QAM RF: 0 (DME) blood glucose control, normal [OneTouch Ultra Control] solution See Dose Instructions .ROUTE .MEDSUPPLY Qty: 1 RF: 0 (DME) blood-glucose meter [OneTouch Ultra2 Meter] kit See Dose Instructions .ROUTE .MEDSUPPLY Qty: 1 RF: 0 (DME) lancets [OneTouch UltraSoft Lancets] [facility] [place] See Dose Instructions .ROUTE .MEDSUPPLY Qty: 100 RF: 0 ascorbic acid (vitamin C) 1,000 mg tablet 1 gm PO BID RF: 0 lactobacillus combination no.8 1 dose PO QAM RF: 0 melatonin 1 tab PO HS PRN (Reason: Insomnia) RF: 0 cholecalciferol (vitamin D3) 125 mcg (5,000 unit) capsule 5,000 unit PO BID Qty: 60 RF: 0 ammonium lactate 12 % cream 1 applic topical DAILY PRN (Reason: dry skin) Qty: 385 RF: 5 losartan [Cozaar] 25 mg tablet 25 mg PO QAM Qty: 90 RF: 1 vitamin B complex Tablet 1 tab PO QAM RF: 0 pantoprazole [Protonix] 40 mg tablet,delayed release (DR/EC) 40 mg PO QAM RF: 0 gabapentin 300 mg capsule 300 mg PO BID RF: 0 paroxetine HCl [Paxil] 40 mg tablet 40 mg PO QAM RF: 0 loratadine [Claritin] 10 mg tablet 10 mg PO QAM RF: 0 Discharge Orders: Discharge Order (Routine); Ordered 05/18/21 Ordered By: Isak West/Other Patient Handouts: Controlling High Blood Pressure, Medicine for Pain, Increasing Your Knee's Range of Motion, Diabetic Neuropathy Admission Data Admit Date/Time: 05/17/21 13:38 Attending Provider: Cleveland Barlow Admit Provider: Cleveland Barlow Primary Care Provider: Anastasiya Ruiz Other Interventions: Discharge Summary Assessment (RN) Last Done: 05/18/21 10:44
== END 2021-05-18 11:30 | disposition home or self-care (01) ==
LOC: ASU 08:00 → 3N 13:38 → INTOOBSV 13:38

== ENCOUNTER 2024-04-23 09:34 | Observation (INO) ==
--- NOTE | 2024-04-23 09:49 | Emergency Department Note ---
Impression & Plan Hypoxia, Closed rib fracture, Fall ED Provider Note NAME: MERE DELAROSA AGE: 69 SEX: F : 1955 ARRIVES VIA: Ambulance INFORMANT: Patient ED PROVIDER(S): Stanislaw Rivera DO CHIEF COMPLAINT: fall rib pain HPI: Patient is a 69-year-old female with a past medical history of asthma, obesity, depression, arthritis, ambulatory dysfunction and wheelchair that presents to the ER following a fall. She was in a wheelchair and it fell over onto her left side last . She denies any head strike. No head or neck pain. No belly pain. No hematuria. No extremity pain. She notes her pain is focal in her left lateral ribs. She has pain with breathing, twisting, turning, or bending. Got significantly worse the past 24 hours. No other exacerbating or remitting factors. ADDITIONAL HISTORY OBTAINED: Per HPI Chronic Medical/Social Conditions Affecting Care: Per HPI PAST MEDICAL HISTORY:See Below PAST SURGICAL HISTORY:See Below FAMILY HISTORY:See Below SOCIAL HISTORY:See Below HOME MEDICATIONS:See Below ALLERGIES:See Below VITALS:See Below PHYSICAL EXAMINATION: GENERAL: alert, well appearing, well nourished, no distress, non-toxic HEAD: normal cephalic, atraumatic EYE EXAM: normal conjunctiva, PERRL and EOM's grossly intact OROPHARYNX: no exudate, no erythema, lips, buccal mucosa, and tongue normal and mucous membranes are moist NECK: supple, no nuchal rigidity, no adenopathy, non-tender CHEST: stable to compression anteriorly and posteriorly but tenderness over the left lateral chest wall LUNGS: clear to auscultation. Normal chest wall mechanics HEART: no murmurs, S1 normal and S2 normal ABDOMEN: abdomen soft, non-tender, normo-active bowel sounds, no masses, no rebound or guarding. PELVIS: stable to compression anteriorly and posteriorly BACK: Back is symmetrical on inspection and there is no deformity, no midline tenderness, no CVA tenderness. UPPER EXTREMITIES: full active and passive range of motion of all joints without tenderness to palpation LOWER EXTREMITIES: full active and passive range of motion of all joints without tenderness to palpation NEURO EXAM: Normal sensorium, cranial nerves II-XII grossly intact, normal speech, no gross weakness of arms, no gross weakness of legs. GCS: 15. MEDICAL DECISION MAKING: Patient is a 69-year-old female who presents ER following a mechanical fall from wheelchair onto her left side. Denies any head pain or neck pain. Occurred on . Complaining of left rib pain. IV was established blood work was obtained. Labs show no significant leukocytosis or mild anemia 11.7. BMP with LFTs bilirubin is unremarkable. UA was clean. Patient was found to be hypoxic 83%. She is placed on 2 L nasal cannula. She was given pain meds following this. There is no pneumothorax. Patient is otherwise well-appearing. She was updated bedside discussed case with hospitalist for further evaluation management treatment. She was given IV Dilaudid. Consults/Care Managements Discussions: Per [facility] Triage Nursing notes reviewed. Limited review of prior medical records performed Vital Signs: reviewed and remarkable for no significant abnormalities Differential diagnosis: Differential diagnoses include major intracranial, cervical, spinal, thoracic, abdominal, pelvic and neurologic injury. Fracture, contusion, sprain, strain, laceration, abrasions included as well. ER treatment provided: See below Diagnostics interpreted by me include EKG and cardiac monitoring as listed below: -Cardiac Monitoring: An order was placed for continuous cardiac monitoring. The monitor shows a rate of 80 with sinus rhythm. -ECG: none -Laboratory studies:Interpreted by me as stated above in MDM and shown below. Imaging studies: Xrays: As interpreted by me:none CTs show: CT of the chest per my preliminary interpretation showed no obvious pneumothorax CT of the chest per radiologist described above Procedures:none Critical Care: I have personally spent 32 minutes of critical care time in the direct management of this patient. This includes bedside care, interpretation of diagnostic studies, and testing, discussion with consultants, patient, and family members, and other required patient management activities. This 32 minutes is in excess of all separately billable procedures. Past Med/Surg History Problem List (Updated 04/23/24 @ 15:42 by Stanislaw Rivera DO) Fall (Acute) Closed rib fracture (Acute) Hypoxia (Acute) Ambulatory dysfunction DM2 (diabetes mellitus, type 2) Acute respiratory failure with hypoxia Accidental fall from wheelchair (Acute) Contusion of rib on left side (Acute) Contusion of left shoulder (Acute) Persistent asthma Diabetic neuropathy Diabetes mellitus with complication Anemia Allergic rhinitis Venous insufficiency (chronic) (peripheral) Mitral regurgitation Tubular adenoma Morbid obesity Premature ventricular contractions Vitamin D deficiency Graves disease History of varicose veins 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 Hypertension Depression Bulimia Arthritis Anxiety Acid reflux disease controlled Medical History Nontraumatic complete tear of right rotator cuff Chronic anemia Iron deficiency anemia Surgical History S/P ORIF (open reduction internal fixation) fracture (12/04/22) L periprosthetic femur fx 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) S/P hernia repair incisional hernia repair S/P repair of ventral hernia S/P gastroplasty vertical banded gastroplasty History of section x2 History of hysterectomy History of repair of right rotator cuff Right shoulder RCR (03/23/18): Grade 2 view, MAC#3, ETT 7.0 + P[facility] at [facility] History of total left knee replacement (TKR) History of total right knee replacement (TKR) History of esophagogastroduodenoscopy (EGD) History of tooth extraction all teeth History of tonsillectomy 1963 S/P total thyroidectomy secondary to Graves Disease Family History Mother Diabetes Hypertension Asthma Stroke age 66 Sister , age 44 from [place] Myocardial infarction, Onset Age: 44 Grandmother Stomach cancer Brother Myocardial infarction Other No family history of adverse response to anesthesia Denies family history of Ovarian cancer Prostate cancer Breast cancer Lung cancer Colorectal cancer Social History Smoking Status: Never smoker Tobacco Type: Cigarettes Age Started Using Tobacco: 19; Age Quit Using Tobacco: 30; Second Hand Exposure: No; Do You Dip or Chew Tobacco: No; Hx Alcohol Use: No Hx Substance Use: No Preferred Language: Congolese Communication Ability: Effective Visual Impairment: No Limitations Hearing Ability: Normal Residential Carpet Installer Required: No Beliefs That Will Affect Care: None marital status: Current Living Situation: Alone current occupational status: retired and disabled 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) Other Information That Helps Us Care for You: No other: 2 daughters Feels Safe at Home: Yes Safety Concerns: Feels Safe At This Time Childhood Exposure to Second-Hand Smoke: Yes Diet: regular Diet Comment: KETO DIET caffeine: No Dental Care, Regularly: Yes Physical Activity Frequency: 1-2 Times per Week Seatbelt Use: always Sunscreen Use: No Assistive Devices: Walker Allergies Allergies Allergy/AdvReac Type Severity Reaction Status Date / Time amoxicillin Allergy Intermediate Hives Verified 04/23/24 11:55 cephalexin Allergy Intermediate Hives Verified 02/23/24 10:43 chlorhexidine Allergy Intermediate Rash, Verified 02/23/24 10:43 itching clavulanic acid Allergy Intermediate Hives Verified 02/23/24 10:43 latex Allergy Intermediate Rash Verified 02/23/24 10:43 morphine Allergy Intermediate ?Heart Verified 02/23/24 10:43 racing oxycodone Allergy Intermediate Heart Verified 02/23/24 10:43 racing Sulfa (Sulfonamide Allergy Unknown Unknown Verified 02/23/24 10:43 Antibiotics) Home Meds Home Medications Medication Instructions Recorded Confirmed blood glucose control, normal #1 ea 06/01/19 02/23/24 (OneTouch Ultra Control solution) blood-glucose meter (OneTouch #1 ea 06/01/19 02/23/24 Ultra2 Meter kit) multivitamin 1 tab PO QAM 06/01/19 04/23/24 vitamin B complex 1 tab PO QAM 05/22/20 04/23/24 acetaminophen 500 mg capsule 500 mg PO Q6H PRN Pain 05/29/21 04/23/24 ascorbic acid (vitamin C) 1,000 mg 2 g PO BID 07/30/21 04/23/24 tablet furosemide 40 mg tablet 40 mg PO DAILY PRN edema 04/23/24 04/23/24 Previous Rx's Medication Instructions Recorded nebulizer accessories #1 ea 09/03/19 nebulizers #1 ea 09/06/19 albuterol sulfate 2.5 mg/3 mL 2.5 mg (3 mL) inhalation Q6H PRN 10/22/21 (0.083 %) solution for nebulization shortness of breath or wheezing #360 mL cholecalciferol (vitamin D3) 50 50 mcg PO DAILY #30 caps 01/06/23 mcg (2,000 unit) capsule potassium chloride 10 mEq 10 meq PO DAILY PRN with lasix 06/30/23 tablet,extended release medication #20 tabs magnesium oxide 400 mg (241.3 mg 400 mg PO QAM #90 tabs 09/23/23 magnesium) tablet montelukast 10 mg tablet 10 mg PO DAILY #90 tabs 09/23/23 (Singulair) pantoprazole 40 mg tablet,delayed 40 mg PO BID #180 tabs 09/23/23 release Wheelchair (Manual) #1 ea 10/01/23 metformin 500 mg tablet 500 mg PO BID #200 tabs 11/28/23 losartan 25 mg tablet (Cozaar) 25 mg PO QAM #100 tabs 12/02/23 bupropion HCl 100 mg tablet 200 mg (2 x 100 mg) PO BID #360 01/09/24 tabs levothyroxine 200 mcg tablet 200 mcg PO DAILY #90 tabs 01/15/24 fluticasone 250 mcg-salmeterol 50 1 inh inhalation Q12H #60 ea 01/29/24 mcg/dose blistr powdr for inhalation albuterol sulfate 90 mcg/actuation 2 puff inhalation Q4H PRN 01/30/24 aerosol inhaler (Ventolin HFA) shortness of breath or wheezing #18 grams lancets #100 ea 02/20/24 famotidine 20 mg tablet 20 mg PO BID #180 tabs 02/23/24 paroxetine HCl 40 mg tablet (Paxil) 40 mg PO QAM #90 tabs 03/01/24 triamcinolone acetonide 0.5 % 1 applic topical BID PRN skin 03/01/24 topical cream irritation #60 grams OneTouch Ultra Test (blood sugar #100 ea 03/03/24 diagnostic) ondansetron 4 mg disintegrating 4 mg PO Q8H PRN nausea and 03/09/24 tablet vomiting #10 tabs gabapentin 300 mg capsule 300 mg PO TID #90 caps 04/02/24 trazodone 150 mg tablet 225 mg (1.5 x 150 mg) PO HS #135 04/02/24 tabs meclizine 12.5 mg tablet 12.5 mg PO QID PRN dizziness #30 04/16/24 tabs nystatin 100,000 unit/gram topical See Rx Instructions topical 04/16/24 powder .COMPLEX PRN skin irritation #30 grams Wheelchair (Manual) #1 ea 04/23/24 Results & Data (ED) Vital Signs Vital Signs - 24 hr 04/23/24 09:36 04/23/24 09:47 04/23/24 09:50 Temperature 36.7 C Temperature Source Oral Pulse Rate 84 81 Pulse Rate [Apical] 81 Respiratory Rate 18 17 Respiratory Effort / Characteristics Non-Labored Non-Labored Respiratory Depth Normal Normal Respiratory Pattern Regular Blood Pressure 144/77 H Blood Pressure [Right Arm] 135/69 Blood Pressure Mean 99 Blood Pressure Mean [Right Arm] 91 Pulse Oximetry 94 93 Oxygen Delivery Method Room Air Room Air Oxygen Flow Rate Sepsis Recent Fever Within 48 Hours No Sepsis New/Unexplained Change in Mental Status No Sepsis Action Taken by Nursing No Action Required 04/23/24 10:42 04/23/24 10:47 04/23/24 11:15 Temperature Temperature Source Pulse Rate Pulse Rate [Apical] 83 Respiratory Rate 19 Respiratory Effort / Characteristics Non-Labored Respiratory Depth Normal Respiratory Pattern Regular Blood Pressure Blood Pressure [Right Arm] 182/101 H Blood Pressure Mean Blood Pressure Mean [Right Arm] 128 Pulse Oximetry 95 95 86 L Oxygen Delivery Method Room Air Room Air Room Air Oxygen Flow Rate Sepsis Recent Fever Within 48 Hours Sepsis New/Unexplained Change in Mental Status Sepsis Action Taken by Nursing 04/23/24 11:17 Temperature Temperature Source Pulse Rate Pulse Rate [Apical] Respiratory Rate Respiratory Effort / Characteristics Respiratory Depth Respiratory Pattern Blood Pressure Blood Pressure [Right Arm] Blood Pressure Mean Blood Pressure Mean [Right Arm] Pulse Oximetry 97 Oxygen Delivery Method Nasal Cannula Oxygen Flow Rate 2 Sepsis Recent Fever Within 48 Hours Sepsis New/Unexplained Change in Mental Status Sepsis Action Taken by Nursing Laboratory Data 04/23/24 09:52 04/23/24 09:52 Lab Results 04/23/24 04/23/24 Range/Units 09:52 10:42 WBC 7.58 (4.8-10.8) K/ul RBC 4.12 L (4.20-5.40) M/uL Hgb 11.7 L (12.0-16.0) g/dl Hct 37.3 (37.0-47.0) % MCV 90.5 (80.0-100.0) fL MCH 28.4 (25.0-34.0) pg MCHC 31.4 L (32.0-36.0) g/dL RDW Std Deviation 54.6 H (36.4-46.3) fL RDW Coeff of Lily 16.5 H (11.5-14.5) % Plt Count 205 (130-400) K/uL MPV 10.1 (9.4-12.4) fL Immature Gran % (Auto) 0.4 % Neut % (Auto) 82.0 % Lymph % (Auto) 9.1 % [place] % (Auto) 7.4 % Eos % (Auto) 0.8 % Baso % (Auto) 0.3 % Neut # (Auto) 6.22 (1.40-6.50) K/uL Lymph # (Auto) 0.69 L (1.20-3.40) K/uL [place] # (Auto) 0.56 (0.11-0.59) K/uL Eos # (Auto) 0.06 (0.00-0.50) K/uL Baso # (Auto) 0.02 (0.00-0.20) K/uL Immature Gran # (Auto) 0.03 (0.01-0.20) K/uL Sodium 137 (136-145) mmol/L Potassium 4.6 (3.5-5.1) mmol/L Chloride 104 (98-107) mmol/L Carbon Dioxide 26 (21-32) mmol/L Anion Gap 7 (3-11) BUN 22 (6-23) mg/dl Creatinine 1.15 (0.6-1.2) mg/dl Est Cr Clr Drug Dosing 61.7 ml/min Est GFR ( Amer) 56.6 ml/min Est GFR (Non-Af Amer) 48.9 ml/min BUN/Creatinine Ratio 19.1 (10-20) Glucose 105 H (70-99(Fasting)) mg/dl Calcium 9.6 (8.6-10.3) mg/dl Total Bilirubin 0.5 (0.2-1.0) mg/dl AST 19 (13-39) U/L ALT 19 (7-52) U/L Alkaline Phosphatase 145 H (34-104) U/L Total Protein 6.9 (6.0-8.3) gm/dl Albumin 4.0 (3.4-5.0) gm/dl Globulin 2.9 (2.5-4.0) gm/dl Albumin/Globulin Ratio 1.4 (0.9-2) Urine Color Yellow Urine Appearance Clear (Clear) Urine pH 5.5 (4.5-7.5) Ur Specific [place] 1.026 (1.000-1.030) Urine Protein Negative (Negative) Urine Glucose (UA) Negative (Negative) Urine Ketones Negative (Negative) Urine Blood Negative (Negative) Urine Nitrite Negative (Negative) Urine Bilirubin Negative (Negative) Urine Urobilinogen Negative (Negative) Ur Leukocyte Esterase Negative (Negative) Administered Medications Enoxaparin Sodium (Enoxaparin Inj 40 Mg/0.4 Ml Syr) 40 mg SQ Q24H HAILEE Stop: 05/23/24 12:29 Last Admin: 04/23/24 14:03 Dose: Not Given Documented By: FREDIS Gabapentin (Gabapentin 300 Mg Cap) 300 mg PO TID HAILEE Stop: 05/23/24 13:59 Last Admin: 04/23/24 15:30 Dose: 300 mg Documented By: FREDIS Ketorolac Tromethamine (Ketorolac Tromethamine 15 Mg/Ml Vial) 10 mg IV Q6H PRN PRN Reason: Pain Stop: 04/28/24 12:18 Last Admin: 04/23/24 15:28 Dose: 10 mg Documented By: FREDIS Metformin HCl (Metformin Hcl 500 Mg Tab) 500 mg PO BIDM HAILEE Stop: 05/23/24 16:59 Last Admin: 04/23/24 15:36 Dose: 500 mg Documented By: FREDIS Discontinued Medications Hydromorphone HCl (Hydromorphone Inj 0.5 Mg/0.5 Ml Syr) 0.5 mg IV NOW STA Stop: 04/23/24 11:47 Last Admin: 04/23/24 11:51 Dose: 0.5 mg Documented By: MELANY Ioversol (Optiray 320 100ml) 94 ml IV ONCE ONE Stop: 04/23/24 10:11 Last Admin: 04/23/24 10:10 Dose: 94 ml Documented By: MAHNAZ Lidocaine (Lidocaine 5% 1 Patch) 1 patch TD NOW STA Stop: 04/23/24 12:20 Last Admin: 04/23/24 12:41 Dose: 1 patch Documented By: MELANY Imaging Data Radiologist's Impression: Chest CT 04/23/24 09:43 CT SCAN OF THE CHEST WITH IV CONTRAST CLINICAL HISTORY: Left-sided chest wall pain. Fall one week previous. COMPARISON STUDY: Chest and rib radiographs dated 04/15/2024. Abdominal CT dated 09/19/2020. TECHNIQUE: Following the IV administration of 94 cc of Optiray 320, CT scan of the thorax was performed from the thoracic inlet to the upper abdomen. Images are reviewed in the axial, sagittal, and coronal planes. IV contrast was administered without complication. A dose lowering technique was utilized adhering to the principles of ALARA. There is streak artifact from a right shoulder arthroplasty. CT DOSE: 927.79 mGy.cm FINDINGS: Thyroid: Atrophic. Thoracic aorta: There is atherosclerotic calcification of the thoracic aorta, which is normal in caliber and demonstrates standard 3-vessel arch anatomy. No dissection is seen. Pulmonary vasculature: The pulmonary trunk is normal in caliber. There are no filling defects identified in the central pulmonary vessels to indicate pulmonary embolus. Note that this examination was not protocoled for evaluation of the pulmonary arteries. Heart: The heart is mildly enlarged and without pericardial effusion. The mitral annulus is densely calcified. Lungs and pleural spaces: There is trace left pleural effusion with dependent atelectasis. Airspace consolidation is seen typical for pneumonia. There is no pneumothorax. The trachea and central airways are clear. Mediastinum: There is no mediastinal lymphadenopathy. [place]: Clear. Axillae: There is no axillary lymphadenopathy. Upper abdomen: Postoperative change is partially visualized in the stomach. There are numerous cysts in the partially imaged upper pole of the left kidney which measure up to 1.9 cm. A 2.0 cm left adrenal adenoma is unchanged. Skeletal structures: The skeletal structures are osteopenic. There is a subtle nondisplaced fracture of the left anterior 5th rib. The remainder of the bony thorax appears intact. No lytic or blastic bony lesions are seen. A right shoulder arthroplasty is in place. Degenerative change is noted in the thoracic spine. IMPRESSION: 1. There is a subtle nondisplaced fracture of the left anterior fifth rib. 2. The remainder of the bony thorax appears intact. 3. Trace left pleural effusion. 4. Cardiomegaly. 5. There is no airspace consolidation typical for pneumonia or pneumothorax. 6. Additional findings as above. ACT 112: Negative or not required by law. Electronically signed by: Robert Hsieh M.D. 04/23/2024 10:59 AM Discharge Plan Visit Data Chief Complaint: Flank Pain ED Provider: Stanislaw Rivera Discharge Problem: Hypoxia, Closed rib fracture, Fall Patient Disposition: Admitted As Inpatient Discharge Instructions Interventions: ED Discharge Assessment Last Done: 04/23/24 13:38 Discharge Problem: Closed rib fracture Qualifiers: Encounter type: initial encounter Rib fracture type: single rib Laterality: l eft Qualified Code(s): S22.32XA - Fracture of one rib, left side, initial encounter for closed fracture Fall Qualifiers: Encounter type: initial encounter Qualified Code(s): W19.XXXA - Unspecified fall, initial encounter
[2024-04-23] MEDS: OPTIRAY 320 100ml IV ONE (10:10)
[2024-04-23 10:15] LABS: Basophils # (auto) 0.02 K/uL (0.00-0.20); Basophils % (auto) 0.3 %; Eosinophils # (auto) 0.06 K/uL (0.00-0.50); Eosinophils % (auto) 0.8 %; Hematocrit (blood only) 37.3 % (37.0-47.0); Hemoglobin 11.7 g/dl (12.0-16.0); Immature Granulocytes # (auto) 0.03 K/uL (0.01-0.20); Immature Granulocytes % (auto) 0.4 %; Lymphocytes # (auto) 0.69 K/uL (1.20-3.40); Lymphocytes % (auto) 9.1 %; Mean Corpuscular Hemoglobin 28.4 pg (25.0-34.0); Mean Corpuscular Hgb Conc 31.4 g/dL (32.0-36.0); Mean Corpuscular Volume 90.5 fL (80.0-100.0); Mean Platelet Volume 10.1 fL (9.4-12.4); Monocytes # (auto) 0.56 K/uL (0.11-0.59); Monocytes % (auto) 7.4 %; Neutrophils # (auto) 6.22 K/uL (1.40-6.50); Platelet Count 205 K/uL (130-400); RDW Coefficient of Variation 16.5 % (11.5-14.5); RDW Standard Deviation 54.6 fL (36.4-46.3); Red Blood Count 4.12 M/uL (4.20-5.40); White Blood Count 7.58 K/ul (4.8-10.8)
[2024-04-23 10:32] LABS: Albumin Globulin Ratio 1.4 (0.9-2); BUN Creatinine Ratio 19.1 (10-20); Bilirubin,Total 0.5 mg/dl (0.2-1.0); Calcium 9.6 mg/dl (8.6-10.3); Creatinine Clr Calc Pharmacy 61.7 ml/min; Est GFR (African American) 56.6 ml/min; Est GFR (Non-African American) 48.9 ml/min; Globulin 2.9 gm/dl (2.5-4.0); Potassium 4.6 mmol/L (3.5-5.1); Total Protein 6.9 gm/dl (6.0-8.3)
[2024-04-23 10:55] LABS: Appearance Urine Clear (Clear); Bilirubin Urine Negative (Negative); Blood Urine Negative (Negative); Color Urine Yellow; Glucose Urine UA Negative (Negative); Ketones Urine Negative (Negative); Leukocyte Esterase Urine Negative (Negative); Nitrite Urine Negative (Negative); Protein Urine Negative (Negative); Specific Gravity Urine 1.026 (1.000-1.030); Urobilinogen Urine Negative (Negative); pH Urine 5.5 (4.5-7.5)
--- NOTE | 2024-04-23 11:01 | CT Scan Report ---
CT SCAN OF THE CHEST WITH IV CONTRAST CLINICAL HISTORY: Left-sided chest wall pain. Fall one week previous. COMPARISON STUDY: Chest and rib radiographs dated 04/15/2024. Abdominal CT dated 09/19/2020. TECHNIQUE: Following the IV administration of 94 cc of Optiray 320, CT scan of the thorax was perform ed from the thoracic inlet to the upper abdomen. Images are reviewed in the axial, sagittal, and isidoro nal planes. IV contrast was administered without complication. A dose lowering technique was utilize d adhering to the principles of ALARA. There is streak artifact from a right shoulder arthroplasty. CT DOSE: 927.79 mGy.cm FINDINGS: Thyroid: Atrophic. Thoracic aorta: There is atherosclerotic calcification of the thoracic aorta, which is normal in [place] and demonstrates standard 3-vessel arch anatomy. No dissection is seen. Pulmonary vasculature: The pulmonary trunk is normal in caliber. There are no filling defects identif ied in the central pulmonary vessels to indicate pulmonary embolus. Note that this examination was no t protocoled for evaluation of the pulmonary arteries. Heart: The heart is mildly enlarged and without pericardial effusion. The mitral annulus is densely c alcified. Lungs and pleural spaces: There is trace left pleural effusion with dependent atelectasis. Airspace c onsolidation is seen typical for pneumonia. There is no pneumothorax. The trachea and central airways are clear. Mediastinum: There is no mediastinal lymphadenopathy. [place]: Clear. Axillae: There is no axillary lymphadenopathy. Upper abdomen: Postoperative change is partially visualized in the stomach. There are numerous cysts in the partially imaged upper pole of the left kidney which measure up to 1.9 cm. A 2.0 cm left adren al adenoma is unchanged. Skeletal structures: The skeletal structures are osteopenic. There is a subtle nondisplaced fracture of the left anterior 5th rib. The remainder of the bony thorax appears intact. No lytic or blastic [place] lesions are seen. A right shoulder arthroplasty is in place. Degenerative change is noted in the t horacic spine. IMPRESSION: 1. There is a subtle nondisplaced fracture of the left anterior fifth rib. 2. The remainder of the bony thorax appears intact. 3. Trace left pleural effusion. 4. Cardiomegaly. 5. There is no airspace consolidation typical for pneumonia or pneumothorax. 6. Additional findings as above. ACT 112: Negative or not required by law. Electronically signed by: Robert Hsieh M.D. 04/23/2024 10:59 AM
[2024-04-23] MEDS: HYDROmorphone INJ 0.5 MG/0.5 ML SYR IV STA (11:51)
--- NOTE | 2024-04-23 12:18 | History & Physical Report ---
Date of Service April 23, 2024 Assessment & Plan (1) Acute respiratory failure with hypoxia: Plan: Hypoxia CTchest with contrast shows a subtle nondisplaced fracture of the left fifth rib. Trace left pleural effusion, no evidence of superimposed pneumonia and no evidence of pneumothorax. This was a contrasted study but not PE protocoled, no obvious PE/filling defects were seen Suspect splinting due to pain SpO2 improved greater than 90% on 2 L of oxygen Due to difficulty breathing, and hypoxia patient is recommended for inpatient pain management and optimization with two-step test if oxygen requirements do not improve Admitted with multimodal pain control including Tylenol, Toradol, lidocaine patch, and breakthrough oxycodone Wean oxygen to goal 90% No evidence of infectious hypoxia at time of admission (2) DM2 (diabetes mellitus, type 2): Plan: DM2 BSG 105 on admission Metformin continued Type II diet, glucose checks AC/at bedtime. If has persistent hypoglycemia then hold metformin and transition to basal bolus (3) Ambulatory dysfunction: Plan: Ambulatory dysfunction: PT/OT consulted (4) Hypertension: Plan: Hypertension Continue home antihypertensives, no REANNA is present. Likely acutely increased with rib pain, will also continue pain control as otherwise noted Plan Chronic stable issues: Hypothyroidism: Continue Synthroid GERD: Continue PPI Venous stasis: Continue leg compression, salt restriction. No signs of acute exacerbation DVT prophylaxis: Lovenox, patient's fall was more than 36 hours ago Disposition: Medical surgical CODE STATUS: Full code History of Present Illness Primary Care Provider: Anastasiya Ruiz DO Alma Delia is a 69-year-old female with past medical history of Graves' disease, GERD, venous stasis dermatitis, depression, iron deficiency anemia, and ambulatory dysfunction who uses a wheelchair at baseline who was rolling her wheelchair but which slipped over asphalt/curb which caused her to fall to her left side approximately 1 week ago. She did not hit her head or lose consciousness. She was seen in the ER and had x-rays of her left arm which showed no fracture, and ribs which did not show any fracture at that time. She was discharged home. She Amair presents to the ER with hypoxia, pain in her left ribs worsened with breathing/turning/palpation which is worsened over the 24 hours and is limiting her ability to breathe. She is on 2 L of nasal cannula. She is not tachycardic. She is seen at the bedside reports she is having difficulty breathing and shortness of breath due to pain when taking deep breaths, she feels her shortness of breath is gradually worsened and does not normally need oxygen. Endorses chest pain on palpation and with movement, does not think that this due to exertion but rather due to movement. No chest pain at rest, easily reproducible chest pain at bedside. No nausea/vomiting/diarrhea/constipation. Allergies Allergy/AdvReac Type Severity Reaction Status Date / Time amoxicillin Allergy Intermediate Hives Verified 04/23/24 11:55 cephalexin Allergy Intermediate Hives Verified 02/23/24 10:43 chlorhexidine Allergy Intermediate Rash, Verified 02/23/24 10:43 itching clavulanic acid Allergy Intermediate Hives Verified 02/23/24 10:43 latex Allergy Intermediate Rash Verified 02/23/24 10:43 morphine Allergy Intermediate ?Heart Verified 02/23/24 10:43 racing oxycodone Allergy Intermediate Heart Verified 02/23/24 10:43 racing Sulfa (Sulfonamide Allergy Unknown Unknown Verified 02/23/24 10:43 Antibiotics) Home Medications Medication Instructions Recorded Confirmed Type blood glucose control, normal #1 ea 06/01/19 02/23/24 History (OneTouch Ultra Control solution) blood-glucose meter (OneTouch #1 ea 06/01/19 02/23/24 History Ultra2 Meter kit) multivitamin 1 tab PO QAM 06/01/19 04/23/24 History nebulizer accessories #1 ea 09/03/19 02/23/24 Rx nebulizers #1 ea 09/06/19 02/23/24 Rx vitamin B complex 1 tab PO QAM 05/22/20 04/23/24 History acetaminophen 500 mg capsule 500 mg PO Q6H PRN Pain 05/29/21 04/23/24 History ascorbic acid (vitamin C) 1,000 mg 2 g PO BID 07/30/21 04/23/24 History tablet albuterol sulfate 2.5 mg/3 mL 2.5 mg (3 mL) inhalation Q6H PRN 10/22/21 04/23/24 Rx (0.083 %) solution for nebulization shortness of breath or wheezing #360 mL cholecalciferol (vitamin D3) 50 50 mcg PO DAILY #30 caps 01/06/23 04/23/24 Rx mcg (2,000 unit) capsule potassium chloride 10 mEq 10 meq PO DAILY PRN with lasix 06/30/23 04/23/24 Rx tablet,extended release medication #20 tabs magnesium oxide 400 mg (241.3 mg 400 mg PO QAM #90 tabs 09/23/23 04/23/24 Rx magnesium) tablet montelukast 10 mg tablet 10 mg PO DAILY #90 tabs 09/23/23 04/23/24 Rx (Singulair) pantoprazole 40 mg tablet,delayed 40 mg PO BID #180 tabs 09/23/23 04/23/24 Rx release Wheelchair (Manual) #1 ea 10/01/23 02/23/24 Rx metformin 500 mg tablet 500 mg PO BID #200 tabs 11/28/23 04/23/24 Rx losartan 25 mg tablet (Cozaar) 25 mg PO QAM #100 tabs 12/02/23 04/23/24 Rx bupropion HCl 100 mg tablet 200 mg (2 x 100 mg) PO BID #360 01/09/24 04/23/24 Rx tabs levothyroxine 200 mcg tablet 200 mcg PO DAILY #90 tabs 01/15/24 04/23/24 Rx fluticasone 250 mcg-salmeterol 50 1 inh inhalation Q12H #60 ea 01/29/24 04/23/24 Rx mcg/dose blistr powdr for inhalation albuterol sulfate 90 mcg/actuation 2 puff inhalation Q4H PRN 01/30/24 04/23/24 Rx aerosol inhaler (Ventolin HFA) shortness of breath or wheezing #18 grams lancets #100 ea 02/20/24 02/23/24 Rx famotidine 20 mg tablet 20 mg PO BID #180 tabs 02/23/24 04/23/24 Rx paroxetine HCl 40 mg tablet (Paxil) 40 mg PO QAM #90 tabs 03/01/24 04/23/24 Rx triamcinolone acetonide 0.5 % 1 applic topical BID PRN skin 03/01/24 04/23/24 Rx topical cream irritation #60 grams OneTouch Ultra Test (blood sugar #100 ea 03/03/24 Rx diagnostic) ondansetron 4 mg disintegrating 4 mg PO Q8H PRN nausea and 04/23/24 06/07/24 Rx tablet vomiting #10 tabs gabapentin 300 mg capsule 300 mg PO TID #90 caps 04/02/24 04/23/24 Rx trazodone 150 mg tablet 225 mg (1.5 x 150 mg) PO HS #135 04/02/24 04/23/24 Rx tabs meclizine 12.5 mg tablet 12.5 mg PO QID PRN dizziness #30 04/16/24 04/23/24 Rx tabs nystatin 100,000 unit/gram topical See Rx Instructions topical 04/16/24 04/23/24 Rx powder .COMPLEX PRN skin irritation #30 grams Wheelchair (Manual) #1 ea 04/23/24 Rx furosemide 40 mg tablet 40 mg PO DAILY PRN edema 04/23/24 04/23/24 History Past Med/Surg History Problem List (Updated 04/23/24 @ 15:42 by Stanislaw Rivera DO) Fall (Acute) Closed rib fracture (Acute) Hypoxia (Acute) Ambulatory dysfunction DM2 (diabetes mellitus, type 2) Acute respiratory failure with hypoxia Accidental fall from wheelchair (Acute) Contusion of rib on left side (Acute) Contusion of left shoulder (Acute) Persistent asthma Diabetic neuropathy Diabetes mellitus with complication Anemia Allergic rhinitis Venous insufficiency (chronic) (peripheral) Mitral regurgitation Tubular adenoma Morbid obesity Premature ventricular contractions Vitamin D deficiency Graves disease History of varicose veins 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 Hypertension Depression Bulimia Arthritis Anxiety Acid reflux disease controlled Medical History Nontraumatic complete tear of right rotator cuff Chronic anemia Iron deficiency anemia Surgical History S/P ORIF (open reduction internal fixation) fracture (12/04/22) L periprosthetic femur fx 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) S/P hernia repair incisional hernia repair S/P repair of ventral hernia S/P gastroplasty vertical banded gastroplasty History of section x2 History of hysterectomy History of repair of right rotator cuff Right shoulder RCR (03/23/18): Grade 2 view, MAC#3, ETT 7.0 + P[facility] at [facility] History of total left knee replacement (TKR) History of total right knee replacement (TKR) History of esophagogastroduodenoscopy (EGD) History of tooth extraction all teeth History of tonsillectomy 1963 S/P total thyroidectomy secondary to Graves Disease Family History Mother Diabetes Hypertension Asthma Stroke age 66 Sister , age 44 from [place] Myocardial infarction, Onset Age: 44 Grandmother Stomach cancer Brother Myocardial infarction Other No family history of adverse response to anesthesia Denies family history of Ovarian cancer Prostate cancer Breast cancer Lung cancer Colorectal cancer Social History Smoking Status: Never smoker Tobacco Type: Cigarettes Age Started Using Tobacco: 19; Age Quit Using Tobacco: 30; Second Hand Exposure: No; Do You Dip or Chew Tobacco: No; Hx Alcohol Use: No Hx Substance Use: No Preferred Language: Moroccan Communication Ability: Effective Visual Impairment: No Limitations Hearing Ability: Normal 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 NAD. Cooperative. HEENT: Atraumatic, normocephalic. Pulm: CTAB A&P. -wheezes, -rales, -rhonchi. Symmetrical chest rise. No increased work of breathing. No respiratory distress. Chest wall is tender to palpation underlying the left breast. Cardiac: RRR, -mrg. Radial pulses intact and symmetrical. Abdominal: Nontender, nondistended, soft. BS present. Results & Data Results & Data Vital Signs (Past 12 Hours) Vital Signs Temp Pulse Pulse Resp BP BP Pulse Ox 04/23/24 11:17 97 04/23/24 11:15 86 L 04/23/24 10:47 95 04/23/24 10:42 83 19 182/101 H 95 04/23/24 09:50 81 17 135/69 93 04/23/24 09:47 81 04/23/24 09:36 36.7 C 84 18 144/77 H 94 O2 Del Method O2 Flow Rate 04/23/24 11:17 Nasal Cannula 2 04/23/24 11:15 Room Air 04/23/24 10:47 Room Air 04/23/24 10:42 Room Air 04/23/24 09:50 Room Air 04/23/24 09:47 04/23/24 09:36 Room Air PG Care Time/CCT Total # of Minutes Spent Total Time Spent with Patient: Total time spent is greater than 50% in coordination of care (as documented) at patient's floor/unit and/or counseling patient: Coding Level of Care Code 75135 INT INP/OBS CARE 2/55MIN Diagnoses Acute respiratory failure with hypoxia J96.01 DM2 (diabetes mellitus, type 2) E11.9 Ambulatory dysfunction R26.2 Essential hypertension I10 Hypertension type: essential hypertension (4) Hypertension Hypertension type: essential hypertension Qualified Code(s): I10 - Essential (primary) hypertension
[2024-04-23] MEDS ORDERED: GLUCOSE 10 TAB/TUBE PO PRN (12:19)
[2024-04-23] MEDS ORDERED: GLUCAGON FOR INJ 1 MG VIAL SQ PRN (12:19)
[2024-04-23] MEDS ORDERED: oxyCODONE HCL IR 5 MG TAB (IMMEDIATE RELEASE) PO PRN (12:19)
[2024-04-23] MEDS ORDERED: DEXTROSE 50% 50 ML SYRINGE IV PRN (12:19)
[2024-04-23] MEDS ORDERED: GLUCOSE 40% GEL 15 GM TUBE PO PRN (12:19)
[2024-04-23] MEDS ORDERED: CARBOHYDRATES FOR HYPOGLYCEMIA PO PRN (12:19)
[2024-04-23] MEDS: LIDOCAINE 5% 1 PATCH TD STA (12:41)
[2024-04-23] MEDS ORDERED: MECLIZINE 12.5 MG TAB PO PRN (13:39)
[2024-04-23] MEDS ORDERED: ALBUTEROL HFA 8 GM INHALER INH PRN (13:39)
[2024-04-23] MEDS ORDERED: NYSTATIN POWDER 15GM BTL EXT PRN (13:39)
[2024-04-23] MEDS ORDERED: FUROSEMIDE 40 MG TAB PO PRN (13:39)
[2024-04-23] MEDS ORDERED: ONDANSETRON 4 MG OD TAB PO PRN (13:39)
[2024-04-23] MEDS ORDERED: POTASSIUM CHLORIDE 10 MEQ TABCR PO PRN (13:39)
[2024-04-23] MEDS ORDERED: ALBUTEROL 0.083% NEBU SOLN 3 ML VIAL INH PRN (13:39)
[2024-04-23] MEDS: ENOXAPARIN INJ 40 MG/0.4 ML SYR SQ SCH (14:03)
[2024-04-23] MEDS: KETOROLAC TROMETHAMINE 15 MG/ML VIAL IV PRN (15:28)
[2024-04-23] MEDS: GABAPENTIN 300 MG CAP PO SCH (15:30)
[2024-04-23] MEDS: metFORMIN HCL 500 MG TAB PO SCH (15:36)
[2024-04-23] MEDS: ASCORBIC ACID 500 MG TAB PO SCH (20:14)
[2024-04-23] MEDS: FAMOTIDINE 20 MG TAB PO SCH (20:14)
[2024-04-23] MEDS: buPROPion HCl 100 MG TABLET PO SCH (20:14)
[2024-04-23] MEDS: PANTOprazole 40 MG TAB PO SCH (20:15)
[2024-04-23] MEDS: traZODone HCL 50 MG TAB PO SCH (21:21)
[2024-04-24] MEDS: LEVOTHYROXINE SODIUM 200 MCG TABLET PO SCH (04:40)
[2024-04-24] MEDS: MULTIVITAMIN TAB PO SCH (08:05)
[2024-04-24] MEDS: MONTELUKAST SODIUM 10 MG TABLET PO SCH (08:05)
[2024-04-24] MEDS: PARoxetine HCL 20 MG TAB PO SCH (08:05)
[2024-04-24] MEDS: MAGNESIUM OXIDE 400 MG TAB PO SCH (08:05)
[2024-04-24] MEDS: VITAMIN B COMPLEX TAB PO SCH (08:05)
[2024-04-24] MEDS: LOSARTAN POTASSIUM 25 MG TAB PO SCH (08:05)
[2024-04-24] MEDS: CHOLECALCIFEROL 25 MCG (1000 UNITS) TAB PO SCH (08:05)
[2024-04-24] MEDS: FLUTICASONE/VILANTEROL 200/25MCG 14 PUFFS/INHALER INH SCH (08:06)
--- NOTE | 2024-04-24 11:23 | Discharge Summary ---
Discharge Summary Date of Service April 24, 2024 Principal Dx & Hospital Course #1 = Principal Diagnosis (1) Acute respiratory failure with hypoxia: CTchest with contrast shows a subtle nondisplaced fracture of the left fifth rib. Trace left pleural effusion, no evidence of superimposed pneumonia and no evidence of pneumothorax. This was a contrasted study but not PE protocoled, no obvious PE/filling defects were seen Suspect splinting due to pain Admitted with multimodal pain control including Tylenol, Toradol, lidocaine patch No evidence of infectious hypoxia stable on room air. Pain is improving. Status from motor and flutter valve, to be continued at discharge (2) DM2 (diabetes mellitus, type 2): continue home metformin (3) Hypertension: Continue home antihypertensives Plan Chronic stable issues: Hypothyroidism: Continue Synthroid GERD: Continue PPI Venous stasis: Continue leg compression, salt restriction. No signs of acute exacerbation Dispo: discharge to home today, has family that live in the same building to help if needed Notes For Next Care Provider patient fell over a week ago, CT scan showed rib fracture, briefly was requiring oxygen but now has been stable on room air. Discharged with incentive spirometer and flutter valve Heart murmur noticed by attending physican, Dr. Schneider, day of discharge. Best heard in the RUSB. Recommend outpatient echo. Medication Changes From Visit Toradol as needed Admission HPI Per Admitting Provider Alma Delia is a 69-year-old female with past medical history of Graves' disease, GERD, venous stasis dermatitis, depression, iron deficiency anemia, and ambulatory dysfunction who uses a wheelchair at baseline who was rolling her wheelchair but which slipped over asphalt/curb which caused her to fall to her left side approximately 1 week ago. She did not hit her head or lose consciousness. She was seen in the ER and had x-rays of her left arm which showed no fracture, and ribs which did not show any fracture at that time. She was discharged home. She Aamir presents to the ER with hypoxia, pain in her left ribs worsened with breathing/turning/palpation which is worsened over the 24 hours and is limiting her ability to breathe. She is on 2 L of nasal cannula. She is not tachycardic. She is seen at the bedside reports she is having difficulty breathing and shortness of breath due to pain when taking deep breaths, she feels her shortness of breath is gradually worsened and does not normally need oxygen. Endorses chest pain on palpation and with movement, does not think that this due to exertion but rather due to movement. No chest pain at rest, easily reproducible chest pain at bedside. No nausea/vomiting/diarrhea/constipation. Discharge Exam General: NAD, VS as above Resp: normal respiratory effort, lungs clear to auscultation - unable to take complete full breath due to pain but good air movement CV: RRR, no murmur, Abd: soft, non tender, no hepatosplenomegaly Neuro: A&O x3, Updated Medication List Medication Instructions Recorded Confirmed Type blood glucose control, normal #1 ea 06/01/19 02/23/24 History (OneTouch Ultra Control solution) blood-glucose meter (OneTouch #1 ea 06/01/19 02/23/24 History Ultra2 Meter kit) multivitamin 1 tab PO QAM 06/01/19 04/23/24 History nebulizer accessories #1 ea 09/03/19 02/23/24 Rx nebulizers #1 ea 09/06/19 02/23/24 Rx vitamin B complex 1 tab PO QAM 05/22/20 04/23/24 History acetaminophen 500 mg capsule 500 mg PO Q6H PRN Pain 05/29/21 04/23/24 History ascorbic acid (vitamin C) 1,000 mg 2 g PO BID 07/30/21 04/23/24 History tablet albuterol sulfate 2.5 mg/3 mL 2.5 mg (3 mL) inhalation Q6H PRN 10/22/21 04/23/24 Rx (0.083 %) solution for nebulization shortness of breath or wheezing #360 mL cholecalciferol (vitamin D3) 50 50 mcg PO DAILY #30 caps 01/06/23 04/23/24 Rx mcg (2,000 unit) capsule potassium chloride 10 mEq 10 meq PO DAILY PRN with lasix 06/30/23 04/23/24 Rx tablet,extended release medication #20 tabs magnesium oxide 400 mg (241.3 mg 400 mg PO QAM #90 tabs 09/23/23 04/23/24 Rx magnesium) tablet montelukast 10 mg tablet 10 mg PO DAILY #90 tabs 09/23/23 04/23/24 Rx (Singulair) pantoprazole 40 mg tablet,delayed 40 mg PO BID #180 tabs 09/23/23 04/23/24 Rx release Wheelchair (Manual) #1 ea 10/01/23 02/23/24 Rx metformin 500 mg tablet 500 mg PO BID #200 tabs 11/28/23 04/23/24 Rx losartan 25 mg tablet (Cozaar) 25 mg PO QAM #100 tabs 12/02/23 04/23/24 Rx bupropion HCl 100 mg tablet 200 mg (2 x 100 mg) PO BID #360 01/09/24 04/23/24 Rx tabs levothyroxine 200 mcg tablet 200 mcg PO DAILY #90 tabs 01/15/24 04/23/24 Rx fluticasone 250 mcg-salmeterol 50 1 inh inhalation Q12H #60 ea 01/29/24 04/23/24 Rx mcg/dose blistr powdr for inhalation albuterol sulfate 90 mcg/actuation 2 puff inhalation Q4H PRN 01/30/24 04/23/24 Rx aerosol inhaler (Ventolin HFA) shortness of breath or wheezing #18 grams lancets #100 ea 02/20/24 02/23/24 Rx famotidine 20 mg tablet 20 mg PO BID #180 tabs 02/23/24 04/23/24 Rx paroxetine HCl 40 mg tablet (Paxil) 40 mg PO QAM #90 tabs 03/01/24 04/23/24 Rx triamcinolone acetonide 0.5 % 1 applic topical BID PRN skin 03/01/24 04/23/24 Rx topical cream irritation #60 grams OneTouch Ultra Test (blood sugar #100 ea 03/03/24 Rx diagnostic) ondansetron 4 mg disintegrating 4 mg PO Q8H PRN nausea and 03/09/24 04/23/24 Rx tablet vomiting #10 tabs gabapentin 300 mg capsule 300 mg PO TID #90 caps 04/02/24 04/23/24 Rx trazodone 150 mg tablet 225 mg (1.5 x 150 mg) PO HS #135 04/02/24 04/23/24 Rx tabs meclizine 12.5 mg tablet 12.5 mg PO QID PRN dizziness #30 04/16/24 04/23/24 Rx tabs nystatin 100,000 unit/gram topical See Rx Instructions topical 04/16/24 04/23/24 Rx powder .COMPLEX PRN skin irritation #30 grams Wheelchair (Manual) #1 ea 04/23/24 Rx furosemide 40 mg tablet 40 mg PO DAILY PRN edema 04/23/24 04/23/24 History Hospital Stay Data Consultations 04/23/24 11:52 ED Decision to Admit Stat Diagnostic Imagining Performed Chest CT 04/23/24 09:43 CT SCAN OF THE CHEST WITH IV CONTRAST CLINICAL HISTORY: Left-sided chest wall pain. Fall one week previous. COMPARISON STUDY: Chest and rib radiographs dated 04/15/2024. Abdominal CT dated 09/19/2020. TECHNIQUE: Following the IV administration of 94 cc of Optiray 320, CT scan of the thorax was performed from the thoracic inlet to the upper abdomen. Images are reviewed in the axial, sagittal, and coronal planes. IV contrast was administered without complication. A dose lowering technique was utilized adhering to the principles of ALARA. There is streak artifact from a right shoulder arthroplasty. CT DOSE: 927.79 mGy.cm FINDINGS: Thyroid: Atrophic. Thoracic aorta: There is atherosclerotic calcification of the thoracic aorta, which is normal in caliber and demonstrates standard 3-vessel arch anatomy. No dissection is seen. Pulmonary vasculature: The pulmonary trunk is normal in caliber. There are no filling defects identified in the central pulmonary vessels to indicate pulmonary embolus. Note that this examination was not protocoled for evaluation of the pulmonary arteries. Heart: The heart is mildly enlarged and without pericardial effusion. The mitral annulus is densely calcified. Lungs and pleural spaces: There is trace left pleural effusion with dependent atelectasis. Airspace consolidation is seen typical for pneumonia. There is no pneumothorax. The trachea and central airways are clear. Mediastinum: There is no mediastinal lymphadenopathy. Mirian: Clear. Axillae: There is no axillary lymphadenopathy. Upper abdomen: Postoperative change is partially visualized in the stomach. There are numerous cysts in the partially imaged upper pole of the left kidney which measure up to 1.9 cm. A 2.0 cm left adrenal adenoma is unchanged. Skeletal structures: The skeletal structures are osteopenic. There is a subtle nondisplaced fracture of the left anterior 5th rib. The remainder of the bony thorax appears intact. No lytic or blastic bony lesions are seen. A right shoulder arthroplasty is in place. Degenerative change is noted in the thoracic spine. IMPRESSION: 1. There is a subtle nondisplaced fracture of the left anterior fifth rib. 2. The remainder of the bony thorax appears intact. 3. Trace left pleural effusion. 4. Cardiomegaly. 5. There is no airspace consolidation typical for pneumonia or pneumothorax. 6. Additional findings as above. ACT 112: Negative or not required by law. Electronically signed by: Robert Hsieh M.D. 04/23/2024 10:59 AM Pending Results Patient Have Any Pending Studies at Discharge: No Discharge Instructions Given to Patient (Per Discharging Provider) Ms. Conklin, you were hospitalized after requiring oxygen for your rib fracture from your prior fall. Thankfully you are improved and no longer needed oxygen. As we discussed rib fractures take a long time to heal as you are constantly breathing. Take deep breaths as you are able as you do not want the bottom of your lungs to start to close (get atelectasis) because are not being used. Using the incentive spirometer and flutter valve will help prevent this. I have sent in some pain medication to the pharmacy, take this only as needed. You can also use Tylenol for pain. Do not take NSAIDs (Aleve ibuprofen, Motrin) while taking the Toradol. no changes to your home medications Activity: You can do normal everyday activities as your body allows. Take rest breaks if you feel tired. Do not overexert. Stop activity if you have pain, shortness of breath or feel dizzy. Follow-up appointments: Make an appointment with your primary care physician within one week of discharge. A copy of this summary will be sent to them. Every time you see your primary care physician, or any other doctor, bring your medication list, and a list of questions. CONTACT YOUR PRIMARY CARE PROVIDER if you experience any of the following: Shortness of breath or difficulty breathing Fevers or chills Feeling tired with normal activity or experiencing dizziness or fainting Difficulty following your treatment plan, or difficulty taking medications CALL 911 OR GO TO THE EMERGENCY DEPARTMENT if you experience any of the following: Severe abdominal pain or nausea/vomiting Severe chest pain, or chest pain that radiates (moves) to your jaw or arm Sudden, severe shortness of breath or difficulty breathing Thank you for allowing us to participate in your care. Total Time Total Time Spent Total Time Spent (In Minutes): Time spend day of discharge 25 minutes including direct patient care, medication reconciliation, documentation, review of labs and images, and coordination of care. Supervising Physician Co-Signing Physician Notes Attending Attestation & Discharge Note: Pt seen/examined, chart reviewed, discharge care plan d/w MARIAH Barrett. I agree w/ the hoang components of her documentation. 69yo female with HTN, DM, hypothyroidism presented with worsening left-sided chest discomfort and difficulty breathing. Had fallen out of her wheelchair about 1 week prior striking the left side of her chest. Was evaluated in the ER after that fall but no rib injuries were discovered during that initial assessment. Came back to [facility] on 04/23 because of worsening breathing and the left-sided chest symptoms. CT chest with a L 5th rib fracture. She had 1 episode of transient hypoxia in the ER to about 86% sats in room air. She was admitted to observation status, given pain control for the rib fracture, and O2 was quickly weaned off. There was no evidence of other pathology on CT chest. Suspect the transient hypoxia was due to splinting from the rib fracture. Discharge exam: gen - obese, NAD, comfortably neck - no JVD mouth - MMM heart - 2/6 RUSB systolic murmur; RRR, s1 s2 lungs - CTA b/l chest - tender left anterior chest 1-2 inches below the clavicle abd - soft NT ND BS+ ext - no edema, pulses 2+ b/l Discussed natural history of rib fractures with the patient. Of note - 25-OH Vit D level was wnl in the fall of 2022 (level=38). Murmur - f/u with PCP, advise outpatient echo. Mihai Schneider MD Coding Level of Care Code 44317 IN/OBS DISCH 30 MIN/LESS Diagnoses Acute respiratory failure with hypoxia J96.01 DM2 (diabetes mellitus, type 2) E11.9 Essential hypertension I10 Hypertension type: essential hypertension
== END 2024-04-24 15:08 | disposition home or self-care (01) ==
LOC: ED 09:34 → 3N 09:34 → SUATTDRO 12:18 → 3N 13:15